=== PATIENT | female | born 1940 | race Caucasian/White ===

== ENCOUNTER 2023-12-02 20:50 | Inpatient (IN) | payer MEDICARE, OTHER, SELFPAY ==
[2023-12-02] VITALS (9 sets, daily range): BP systolic 93–183; BP diastolic 40–73; BMI 26.6
--- NOTE | 2023-12-02 13:50 | EDRN ---
Delay in lab labels due to registration needing correction.
[2023-12-02 13:58] LABS: % Basophils 0.7 % (0-2); % Eosinophils 1.1 % (0-6); % Immature Granulocytes 0.5 % (0-0.5); % Lymphocytes 10.8 % (20.5-51.1); % Neutrophils 80.9 % (42.2-75.2); Absolute Basophils 0.1 10^3/uL (0-0.2); Absolute Eosinophils 0.1 10^3/uL (0-0.7); Absolute Immature Granulocytes 0.1 10^3/uL (0-0.05); Absolute Lymphocytes 1.4 10^3/uL (1.2-3.4); Absolute Monocytes 0.8 10^3/uL (0.1-0.6); Absolute Neutrophils 10.2 10^3/uL (1.4-6.5); Hematocrit 32.4 % (37.0-47.0); Hemoglobin 10.6 g/dL (12.0-16.0); Mean Corp Hgb Conc. 32.7 g/dL (33.0-37.0); Mean Corpuscular Hgb 27.4 pg (27.0-31.0); Mean Corpuscular Volume 83.7 fL (81.0-99.0); Mean Platelet Volume 9.8 fL (7.4-10.4); Nucleated Red Blood Cells % 0 %; Platelet Count 416 10^3/uL (130-400); Red Blood Cell Count 3.87 10^6/uL (4.20-5.40); Red Cell Dist. Width 13.7 % (11.5-14.5); White Blood Cell Count 12.5 10^3/uL (4.8-10.8)
[2023-12-02 14:12] LABS: ALT (SGPT) 10 U/L (0-35); AST (SGOT) 17 U/L (14-36); Albumin 3.8 g/dl (3.5-5.0); Alkaline Phosphatase 113 U/L (38-126); Blood Urea Nitrogen 19 mg/dl (7-17); Calcium 9.5 mg/dl (8.4-10.2); Carbon Dioxide 32 mmol/L (22-30); Chloride 99 mmol/L (98-107); Glucose 150 mg/dl (70-99); Potassium 3.5 mmol/L (3.5-5.1); Sodium 135 mmol/L (135-145); Total Bilirubin 0.4 mg/dl (0.2-1.3); Total Protein 6.6 g/dl (6.3-8.2); eGFR 40.55
[2023-12-02 14:52] LABS: Troponin I < 0.012 ng/ml
[2023-12-02] MEDS: ROXICODONE 5 MG PO (16:26)
[2023-12-02 17:37] LABS: Urine Albumin Negative (Neg - Trace); Urine Bilirubin Negative (Negative); Urine Character Clear (Clear); Urine Color Yellow; Urine Glucose Negative (Negative); Urine Ketone Negative (Negative); Urine Leukocyte Negative (Negative); Urine Nitrite Positive (Negative); Urine Occult Blood Negative (Negative); Urine Specific Gravity 1.015 (<1.030); Urine Urobilinogen Negative (Neg - 1+)
[2023-12-02 17:45] LABS: Urine Squamous Cell 0-2 /LPF (Few)
[2023-12-02 17:46] LABS: Urine Bacteria Many (Negative); Urine Red Blood Cell 0-2 /HPF (0-2)
--- NOTE | 2023-12-02 19:18 | ED.GENMED ---
History of Present Illness
General
Chief Complaint: Back Pain
Source: patient
Exam Limitations: none
Time Seen by Provider: 12/02/23 14:52
Nursing documentation reviewed up to this point in time: agreed with
Travel History
Have you had any contact with someone who has COVID-19?: No
Do you have any symptoms of coronavirus? Fever > 100 degrees, chills, cough, shortness of breath, sore throat, loss of taste or smell, muscle aches, or headache?: No
History of Present Illness
History of Present Illness:
83-year-old female with a past medical history of dementia, chronic respiratory failure on home oxygen, and chronic low back pain who presents to the emergency room accompanied by her family; she presents from home via EMS for evaluation of back
pain also had an episode of sweatiness and nausea prior to arrival. Patient is a poor historian much of history obtained from family who are at bedside. Patient has a long history of back pain and has had multiple compression fractures in the
past. Family reports that this past she started complaining of worsening pain in her lower back. They brought this to the attention of a visiting nurse and discussed with patient's primary doctor and ultimately she was prescribed tramadol
which she started on Saturday. It sounds like patient has been taking this in addition to Tylenol extra strength and neither of these things seem to be helping with her pain. Today patient was doing physical therapy and she says that she was having
severe pain in her back while she was up and walking around. It sounds like she became slightly clammy and sweaty and had some nausea. Did not feel lightheaded or pass out. It sounds like they had some trouble checking her vital signs during the
episode. This passed after a few minutes. She ultimately was referred to the emergency room after this episode in the setting of worsening back pain. Patient denies any lightheadedness, dizziness, diaphoresis or nausea here in the emergency room
her only complaint is continued low back pain. She says the pain radiates across the low back is not worse on one side or the other. She denies weakness or numbness in her legs. She denies saddle anesthesia. She denies any issues with
incontinence of her stools in fact she has been constipated recently. Family says that she has chronic urinary incontinence and that this is unchanged. No fevers or chills recently. No falls.
Past History
Past History
ED Past Medical History: Arrthythmia (afib), CHF, COPD (Wears oxygen at 2.5 liters), CVA (Left sided weakness), HTN, Hypercholesterolemia, Psychiatric and Other (Gout, Alzheimer dementia)
ED Past Surgical History: Cardiac (Stents), Tonsilectomy and Other (cataracts)
Patient has exhibited threatening behavior?: No
PSI?: No
Social History
Tobacco: Former smoker (Quit smoking 12 years ago)
Alcohol: None
Drug: None
Personal:
Living: assisted
Employment: Retired
Family History
Family History: Other (Noncontributory)
Review of Systems
Review of Systems
Unable to obtain full review of systems at this time due to: dementia
All Other Systems: Not applicable
Phy Exam
Physical Exam
Physical Exam:
General: Awake, alert; weak and physically deconditioned
Head: Normocephalic, atraumatic
Eyes: Conjunctiva normal, pupils equal round and reactive to light bilaterally
Throat: Airway intact, handling secretions
Neck: Trachea midline, supple without meningismus
Lungs: Clear to auscultation bilaterally, no wheezing, rales, rhonchi
Heart: Regular rate and rhythm, no murmurs, gallops, or rubs
Abd: Soft, non distended, nontender with no palpable masses
Back: No tenderness in the thoracic or lumbar midline spine but she does have bilateral paraspinal tenderness L4-L5 level; no ecchymosis in the back or flank
Neuro: Cranial nerves grossly intact, speech fluid, motor and sensory function intact in the lower extremities
Extremities: Bilateral lower extremity edema; distal extremities are warm and well-perfused
Scores
Heart Failure Risk
Heart Failure Risk Score: Not Applicable
Heart Score for Chest Pain Patients
STEMI patient?: Not applicable
Withdrawal Assessment of Alcohol
Withdrawal Assessment Completed?: Not applicable
Course
Orders/Labs/Results
Orders:
Orders
12/02/23 13:10
ECG [Electrocardiogram (*1)] Urgent
Reason for Study: Chest Pain
12/02/23 13:11
EKG- Treatment ONCE
12/02/23 13:50
Complete Blood Count/With Diff Urgent
Comprehensive Metabolic Panel Urgent
Troponin I Urgent
12/02/23 15:55
CT Abd/pelvis Wo Iv Cont Urgent
Reason For Exam: severe low back pain on eliquis--eval for RP bleed
Oxycodone [Roxicodone] 5 mg PO NOW STA
12/02/23 17:23
Urinalysis Reflex To Culture Urgent
Date Specimen was Collected: 12/02/23
Time Specimen was Collected: 17:22
Urine Microscopic Reflex Cult Urgent
Urine Culture Urgent
DOC Source: U
Specimen Description:
Date Specimen was Collected: 12/02/23
Time Specimen was Collected: 17:22
12/02/23 19:53
Case Management Consult ONCE
Case Management Consult: Discharge Planning
Morphine Sulfate 2 mg IV NOW STA
PT Consult [Pt Eval And Treat] Urgent
Activity Level: Ambulate
12/02/23 20:29
Admit/Transfer Patient As Directed
Co-Sign Provider:
Level of Care: Inpatient admission
Assign to:: Medical/Surgical
Physician / Group: deven
Diagnosis: lower back pain
Reason for Hospitalization: lower back pain
Expected length of stay greater than two midnights?: Yes
ELOS- Estimated Length of Stay in days: 2
I certify the patient meets the requirements for IP care: Yes
Code Status As Directed
Resuscitation Status: Do not resuscitate
Reached after discussion with pt or family/Healthcare POA: Yes
12/02/23 20:30
DNR Bracelet Application ONCE
12/02/23 20:35
CR Chest Portable - 1 View Urgent
Comment:
Reason For Exam: hypoxia
Reason Study Needs to be Portable: Unable to Transport
Abnormal Lab Results
12/02/23 12/02/23
13:50 17:23
WBC 12.5 H 10^3/uL
(4.8-10.8)
RBC 3.87 L 10^6/uL
(4.20-5.40)
Hgb 10.6 L g/dL
(12.0-16.0)
Hct 32.4 L %
(37.0-47.0)
MCHC 32.7 L g/dL
(33.0-37.0)
Plt Count 416 H 10^3/uL
(130-400)
Abs Immat Gran (auto) 0.1 H 10^3/uL
(0-0.05)
Absolute Neuts (auto) 10.2 H 10^3/uL
(1.4-6.5)
Absolute Monos (auto) 0.8 H 10^3/uL
(0.1-0.6)
Neutrophils % 80.9 H %
(42.2-75.2)
Lymphocytes % 10.8 L %
(20.5-51.1)
Carbon Dioxide 32 H mmol/L
(22-30)
BUN 19 H mg/dl
(7-17)
Creatinine 1.3 H mg/dL
(0.6-1.0)
Glucose 150 H mg/dl
(70-99)
Urine Nitrite (Reflex) Positive A
(Negative)
Urine Bacteria (Reflex) Many A
(Negative)
12/02/23 13:50
12/02/23 13:50
Vital Signs
Initial and Last Documented VS:
Initial Vital Signs
Temp Pulse Resp BP Pulse Ox
36.6 C 62 16 93/63 94
12/02/23 13:13 12/02/23 13:13 12/02/23 13:13 12/02/23 13:13 12/02/23 13:13
Last Documented Vital Signs
Temp Pulse Resp BP Pulse Ox
36.6 C 64 16 170/46 93
12/02/23 13:13 12/02/23 18:00 12/02/23 18:00 12/02/23 17:20 12/02/23 17:20
MDM/Problems Addressed
Differential Diagnosis Includes:
Compression fracture, myofascial strain, back spasms, retroperitoneal hemorrhage, intra-abdominal infection, kidney stone or pyelonephritis felt to be somewhat less likely
MDM/Problems Addressed:
83-year-old female presents for evaluation of acute on chronic low back pain; she also had an episode of clamminess and nausea in the setting of severe pain while doing physical therapy today. Suspect this episode of clamminess and nausea was
likely a vagal episode in the setting of increased back pain with movement. She has had no falls that have triggered her increase in back pain and she has been receiving tramadol for the past few days which has not helped really at all she says.
Plan to place an IV check labs including a CBC and a CMP. Will check urinalysis. Will send for CT of the abdomen pelvis. Given the episode of clamminess will check an EKG. Will reassess after the above.
Labs reviewed: CBC shows slight leukocytosis to 12.5; hemoglobin 10.6 which is stable. Creatinine baseline 1.3. She has troponin sent in triage which was negative�denies chest pain at any point time. Her urinalysis did have positive nitrites and
many bacteria but there is no pyuria and or squamous cells that suggest more likely this is a contaminated sample. In the absence of urinary symptoms and with bilateral symptoms in the low back that seem quite clearly worse with movement very low
suspicion that symptoms are related to urinary tract infection will hold on antibiotics for now. On CT she has no evidence of retroperitoneal hemorrhage. She has chronic appearing compression deformities in the thoracic and lumbar spine but
nothing that appears to be convincingly acute. No evidence of AAA. At this point suspect her symptoms are musculoskeletal. She was treated with oxycodone here and showed no improvement whatsoever. She is on Eliquis and so NSAIDs contraindicated.
Would be hesitant to discharge on high-dose opiates given her age and fall risk and at this point she can barely move due to her significant back pain despite being dosed with oxycodone. She lives at home with daughters as her only means of
support and daughters feel very uncomfortable with her current functional status given her back pain. Will consult PT and case management I suspect she likely would benefit for short-term rehab with her acute on chronic pain; will admit for
continued pain management and ultimately safe placement. Discussed with hospitalist for admission.
Chronic conditions affecting care:
Chronic back pain
*Radiology
Radiology exam reviewed: radiology read reviewed
*Pulse Oximetry
Patient hypoxic: no
*EKG
Interpreted by ED Provider?: Yes
Heart Rate: 63
Rate: normal
Rhythm: sinus
[place]: normal axis
Interval: normal interval
QRS Pattern: normal QRS
Ischemia: non-specific ST changes
*Critical Care Note
Total Time (30-74mins, 75-104mins- exclusive of procedures): Not Applicable
Data Reviewed
Review of Other/Old Records Reveals: Labs and Records
Source: patient, records and family
Patient Management
Discussion with other providers: Hospitalist (Discussed with hospitalist)
Escalation/DeEscalation of care consider admission/obs:
Admission indicated
ED Attending Note
-
Portions of this chart may have been created with voice recognition software.� Occasional wrong word or��sound alike� substitutions may have occurred due to the inherent limitations of voice recognition software.
Discharge Plan
Departure
Patient Disposition: Admit
Date of Disposition: 12/02/23
Time of Disposition: 19:57
Admit to doctor: [facility]
Presentation/result/management discussed w/ accepting MD/DO: Hospitalist
Discharge Problem:
Acute exacerbation of chronic low back pain
Prescriptions:
No Action
sertraline 50 MG tablet
50 mg PO QPM
memantine 10 MG tablet
10 mg PO BID
donepezil 10 mg Tablet
10 mg PO DAILY
montelukast [Singulair] 10 mg Tablet
10 mg PO DAILY
cholecalciferol (vitamin D3) [Vitamin D3] 25 mcg (1,000 unit) Tablet
25 mcg PO DAILY
diltiazem HCl 240 MG capsule,extended release 24hr
240 mg PO QPM
furosemide 40 mg Tablet
40 mg PO DAILY
docusate sodium [Colace] 100 mg Capsule
100 mg PO DAILY
budesonide-formoterol [Symbicort] 160-4.5 mcg/actuation Hfa Aerosol Inhaler
2 puff INHALATION R DAILY
atorvastatin 40 MG tablet
40 mg PO QPM
pantoprazole 40 MG tablet,delayed release (DR/EC)
40 mg PO DAILY
tramadol 50 mg tablet
50 mg PO TID PRN (Reason: moderate pain)
Patient Comments:
12/02/2023: last filled 11/28/23, 30 tabs for 10 days from [facility]
tiotropium bromide [Spiriva with HandiHaler] 18 mcg capsule, w/inhalation device
1 cap INHALATION R DAILY
Eliquis 5 mg tablet
5 mg PO BID
alprazolam 0.5 mg tablet
0.5 mg PO TID
Patient Comments:
12/02/2023: last filled 11/07/23, 120 tabs for 30 days from [facility]
Referrals:
Tato Chung DO [Family Provider] -
[2023-12-02] MEDS: MORPHINE SULFATE 2 MG IV (20:14)
--- NOTE | 2023-12-02 20:33 | HPS.HSE ---
Family Physician
-
Family Physician: Tato Chung
Chief Complaint
-
lower back pain
History of Present Illness
83-year-old female with past medical history paroxysmal atrial fibrillation on Eliquis, CAD with stent, chronic HFpEF, COPD on 2.5 L at baseline, C. difficile antigen positive, CVA, subclavian steal syndrome with 30 to 40% blockage on the right
side, essential hypertension, hyperlipidemia, GERD, CKD 3B, Alzheimer's disease, Mcnulty's palsy, anxiety/depression, hypoalbuminemia, ex-smoker, hemorrhoids, arthritis/ambulatory dysfunction, compression fractures, presenting with back pain as well as
an episode of sweatiness/clamminess and nausea prior to arrival. Patient has a history of chronic back pain has had multiple compression fractures in the past. A few days ago she started complaining of worsening pain in her lower back during
ambulation and when she bends forward. No radiation of pain down the legs or to the hip. She was prescribed tramadol which she started the next day. Tylenol and tramadol did not help with pain. Today patient was undergoing physical therapy and
started having severe pain in her back while she was ambulating. No recent falls.
While she was sitting she had an episode of nausea and clamminess and sweating which shortly resolved afterwards. No chest pain. She also had hypoxia down to 85% while on her baseline 2.5 L. She did have some slightly increased cough today but
denies any fever or productive sputum.
Patient does not smoke or drink alcohol.
Medical History
Past Medical History
Past Medical History: Reports Other ( paroxysmal atrial fibrillation on Eliquis, CAD with stent, chronic HFpEF, COPD on 2.5 L at baseline, C. difficile antigen positive, CVA, subclavian steal syndrome with 30 to 40% blockage on the right side,
essential hypertension, hyperlipidemia, GERD, CKD 3B, Alzheimer's disease, Mcnulty's palsy, anxi)
Past Surgical History: Reports Other (Cardiac (Stents), Tonsilectomy and Other (cataracts))
Social History
Tobacco: Non-smoker
Alcohol: None
Drug: None
Family History
Family History: Not pertinent
Allergies / Home Medications
Allergies reflects when Allergies were last updated in [facility].
Home Medications with original date entered in [facility]
Allergy/Medication List:
Allergies
Allergy/AdvReac Type Severity Reaction Status Date / Time
codeine Allergy Itching Verified 12/02/23 13:44
Iodinated Contrast Media Allergy Unknown Verified 12/02/23 13:44
iodine Allergy Unknown Verified 12/02/23 13:44
methylprednisolone Allergy Rash Verified 12/02/23 13:44
Penicillins Allergy Hives Verified 12/02/23 13:44
prednisone Allergy Unknown Verified 12/02/23 13:44
shellfish derived Allergy Swelling Verified 12/02/23 13:44
Home Medications
memantine 10 mg tablet 10 mg PO BID Neurological Condition 12/13/21
sertraline 50 mg tablet 50 mg PO QPM Depression 12/13/21
donepezil 10 mg tablet 10 mg PO DAILY memory 05/26/22
cholecalciferol (vitamin D3) 25 mcg (1,000 unit) tablet (Vitamin D3) 25 mcg PO DAILY Supplement 10/14/22
montelukast 10 mg tablet (Singulair) 10 mg PO DAILY asthma 10/14/22
diltiazem HCl 240 mg capsule,extended release 24 hr 240 mg PO QPM Arrhythmia 06/20/23
atorvastatin 40 mg tablet 40 mg PO QPM High Cholesterol 09/10/23
budesonide-formoterol HFA 160 mcg-4.5 mcg/actuation aerosol inhaler (Symbicort) 2 puff inhalation R DAILY Lung/Breathing Issues 09/10/23
docusate sodium 100 mg capsule (Colace) 100 mg PO DAILY Gastrointestinal Issue 09/10/23
furosemide 40 mg tablet 40 mg PO DAILY Fluid Retention/Swelling 09/10/23
pantoprazole 40 mg tablet,delayed release 40 mg PO DAILY Gastrointestinal Issue 09/10/23
alprazolam 0.5 mg tablet 0.5 mg PO TID anxiety 12/02/23
apixaban 5 mg tablet (Eliquis) 5 mg PO BID 12/02/23
tiotropium bromide 18 mcg capsule with inhalation device (Spiriva with HandiHaler) 1 cap inhalation R DAILY 12/02/23
tramadol 50 mg tablet 50 mg PO TID PRN moderate pain 12/02/23
Review of Systems
-
History Source: Patient
A 12 point ROS was completed and negative except as noted: Yes
Constitutional: Reports No Symptoms
EENT: Reports No Symptoms
Respiratory: Reports No Symptoms
Cardiac: Reports No Symptoms
Abdomen/GI: Reports No Symptoms
: Reports No Symptoms
Musculoskeletal: Reports See HPI
Skin: Reports No Symptoms
Neurological: Reports No Symptoms
Endocrine: Reports No Symptoms
Hematologic/Lymphatic: Reports No Symptoms
Psych: Reports No Symptoms
Physical Exam
Vital Signs
Vital Signs
Temp Pulse Resp BP Pulse Ox
97.9 F 64 16 170/46 93
12/02/23 13:13 12/02/23 18:00 12/02/23 18:00 12/02/23 17:20 12/02/23 17:20
Physical Exam
General: Well Developed, Well Nourished and No Apparent Distress
HEENT: NormoCephalic, Moist mucous membranes and Atraumatic
Respiratory: Clear
Cardiac: S1/S2 and Regular Rhythm; No Murmur or Rub
GI: Soft, Non Tender, Non Distended and Normal Bowel Sounds; No Organomegaly
Rectal: Deferred by Provider
Musculoskeletal: No Clubbing, No Cyanosis and No Edema
Skin: No Rash
Neuro: Nonfocal/grossly intact
Laboratory Results
-
12/02/23 13:50
12/02/23 13:50
Laboratory Results
Total Bilirubin 0.4 mg/dl (0.2-1.3) 12/02/23 13:50
AST 17 U/L (14-36) 12/02/23 13:50
ALT 10 U/L (0-35) 12/02/23 13:50
Alkaline Phosphatase 113 U/L (38-126) 12/02/23 13:50
Troponin I < 0.012 ng/ml 12/02/23 13:50
Data Reviewed
-
Lab Data: Labs Reviewed by me
Old Records: Reviewed
Impression/Plan
-
IMPRESSION:
PLAN:
# Acute on chronic lower back pain
# History of compression fracture of T12/L2/L3
# History of degenerative lumbar disc disease with bulges/neuroforaminal stenosis at L4-L5 with impingement of left L4 nerve root
-Tender to palpation of center lumbar spine, able to lift legs against resistance
-CT abdomen pelvis shows compression deformities of the lower thoracic and lumbar spine suggesting old fractures without evidence of acute fracture
-Continue Tylenol, lidocaine patch, tramadol
-As needed morphine
-PT/OT
# Vasovagal episode secondary to pain
-Has resolved
-troponin negative
-EKG normal sinus
# Transient hypoxia likely secondary to pain
-Lungs sound clear
-No longer hypoxic
-Check CXR
Paroxysmal atrial fibrillation
-Continue Eliquis
-Continue diltiazem
CAD with stent
Chronic HFpEF
-Continue Lasix
Chronic anemia due to chronic disease
-Hemoglobin at baseline
History of CVA
Subclavian steal syndrome with 30 to 40% blockage on the right
COPD on 2.5 L at baseline
-Continue inhalers
-Continue montelukast
History of CAD
Essential hypertension
GERD
-Continue Protonix
Hyperlipidemia
-Continue statin
CKD 3B
-Renal function at baseline
Alzheimer's disease
-Continue donepezil, memantine
History of Mcnulty's palsy
Anxiety/depression
-Continue Xanax, sertraline
Hypoalbuminemia
Ex-smoker
History of hemorrhoids
DNR/DNI
DVT prophylaxis�Eliquis
Regular diet
[2023-12-02] MEDS: ULTRAM 50 MG PO (22:19)
[2023-12-02] MEDS: XANAX 0.5 MG PO (22:19)
[2023-12-03] MEDS: MORPHINE SULFATE 2 MG IV (00:08)
--- NOTE | 2023-12-03 00:47 | PTCARENOTE ---
Patient received in bed from ED AAOx1. Pt pulled over from stretcher to bed. Patient complaining of lower back pain, PRN medications given see MAR. Bed low, call horta placed within reach.
[2023-12-03 03:25] VITALS: BP 156/73
[2023-12-03 07:25] VITALS: BP 161/57
[2023-12-03 07:36] LABS: % Eosinophils 3.7 % (0-6); % Immature Granulocytes 0.5 % (0-0.5); % Lymphocytes 30.4 % (20.5-51.1); % Monocytes 9.8 % (1.7-9.3); % Neutrophils 54.6 % (42.2-75.2); Absolute Basophils 0.1 10^3/uL (0-0.2); Absolute Eosinophils 0.3 10^3/uL (0-0.7); Absolute Lymphocytes 2.2 10^3/uL (1.2-3.4); Absolute Monocytes 0.7 10^3/uL (0.1-0.6); Hematocrit 29.9 % (37.0-47.0); Hemoglobin 9.8 g/dL (12.0-16.0); Mean Corp Hgb Conc. 32.8 g/dL (33.0-37.0); Mean Corpuscular Hgb 27.2 pg (27.0-31.0); Mean Corpuscular Volume 83.1 fL (81.0-99.0); Mean Platelet Volume 9.6 fL (7.4-10.4); Nucleated Red Blood Cells % 0 %; Platelet Count 374 10^3/uL (130-400); Red Cell Dist. Width 13.5 % (11.5-14.5); White Blood Cell Count 7.3 10^3/uL (4.8-10.8)
[2023-12-03 08:02] LABS: ALT (SGPT) < 10 U/L (0-35); AST (SGOT) 17 U/L (14-36); Albumin 3.3 g/dl (3.5-5.0); Alkaline Phosphatase 101 U/L (38-126); Blood Urea Nitrogen 15 mg/dl (7-17); Calcium 9.3 mg/dl (8.4-10.2); Carbon Dioxide 33 mmol/L (22-30); Chloride 100 mmol/L (98-107); Estimated Creatinine Clearance 36 ml/min; Glucose 83 mg/dl (70-99); Potassium 3.4 mmol/L (3.5-5.1); Sodium 135 mmol/L (135-145); Total Bilirubin 0.4 mg/dl (0.2-1.3); Total Protein 5.9 g/dl (6.3-8.2); eGFR 55.55
[2023-12-03] MEDS: SPIRIVA RESPIMAT 2.5 MCG 2 PUFF INH (08:18)
[2023-12-03] MEDS: SYMBICORT 160/4.5 MCG INHALER 2 PUFF INH (08:18)
[2023-12-03] MEDS: KCL 40 MEQ PO (09:30)
[2023-12-03] MEDS: NAMENDA 5 MG PO ×2 (09:30→21:16)
[2023-12-03] MEDS: PROTONIX 40 MG PO (09:30)
[2023-12-03] MEDS: ELIQUIS 5 MG PO ×2 (09:30→21:16)
[2023-12-03] MEDS: LASIX 40 MG PO (09:30)
[2023-12-03] MEDS: COLACE 100 MG PO (09:31)
[2023-12-03] MEDS: LIDOCAINE 4% PATCH 1 PATCH TOPICAL (09:31)
[2023-12-03] MEDS: SINGULAIR 10 MG PO (09:31)
[2023-12-03] MEDS: VITAMIN D3 (cholecalciferol) 25 MCG PO (09:31)
[2023-12-03] MEDS: XANAX 0.5 MG PO ×3 (09:31→21:18)
[2023-12-03] MEDS: ARICEPT 10 MG PO (09:35)
[2023-12-03 09:41] VITALS: BMI 28.1
[2023-12-03 12:28] VITALS: BP 93/57; PULSE 66; O2SAT 100
[2023-12-03 12:34] VITALS: BP 93/57; PULSE 67; O2SAT 100
[2023-12-03 15:55] VITALS: BP 142/92
--- NOTE | 2023-12-03 16:16 | CM ---
manager diabetes reviewed patient's chart and spoke with patient's daughter Jessica by phone, and patient lives in a 2 story home, with a 1st floor set up, patient is independent with adl's and uses a walker, cane, w/c home oxygen, and has a stair glide,
per physician notes recommendation is for skilled placement, options reviewed with patient's daughter Jessica and she is only agreeable to [facility].
Plan; Skilled placement, daughter only selects [facility].
--- NOTE | 2023-12-03 16:53 | W.PN.HOSP.TC ---
Today's Communication/Plan
-
Bowel regimen
Will consult neurosurgery/orthopedics spine
Continue monitoring for any symptoms or signs of pneumonia
Assessment / Plan
Assessment / Plan
Physical Exam
General: Well Developed, Well Nourished and No Apparent Distress
HEENT: Normocephalic, Moist mucous membranes and Atraumatic
Respiratory: Clear
Cardiac: S1/S2 and Regular Rhythm; No Murmur or Rub
GI: Soft, Non Tender, Non Distended and Normal Bowel Sounds; No Organomegaly
Rectal: Deferred by Provider
Musculoskeletal: No Clubbing, No Cyanosis and No Edema
Skin: No Rash
Neuro: Nonfocal/grossly intact
Assessment/Plan
# Acute on chronic lower back pain
# History of compression fracture of T12/L2/L3
# History of degenerative lumbar disc disease with bulges/neuroforaminal stenosis at L4-L5 with impingement of left L4 nerve root
-Tender to palpation of center lumbar spine, able to lift legs against resistance
-CT abdomen pelvis shows compression deformities of the lower thoracic and lumbar spine suggesting old fractures without evidence of acute fracture
-Continue Tylenol, lidocaine patch, tramadol
-As needed morphine
-PT/OT
# Vasovagal episode secondary to pain
-Has resolved
-troponin negative
-EKG normal sinus
# Transient hypoxia likely secondary to pain vs. atelectasis vs. less likely pneumonia
-Lungs sound clear
-No longer hypoxic
Paroxysmal atrial fibrillation
-Continue Eliquis
-Continue diltiazem
CAD with stent
Chronic HFpEF
-Continue Lasix
Chronic anemia due to chronic disease
-Hemoglobin at baseline
History of CVA
Subclavian steal syndrome with 30 to 40% blockage on the right
COPD on 2.5 L at baseline
-Continue inhalers
-Continue montelukast
History of CAD
Essential hypertension
GERD
-Continue Protonix
Hyperlipidemia
-Continue statin
CKD 3B
-Renal function at baseline
Alzheimer's disease
-Continue donepezil, memantine
History of Mcnulty's palsy
Anxiety/depression
-Continue Xanax, sertraline
Hypoalbuminemia
Ex-smoker
History of hemorrhoids
Moderate diffuse coarsening of the interstitial markings throughout both lungs which could be interstitial pneumonia/bronchiolitis on CT Imaging
Trace amount of pleural fluid within the visualized inferior hemithoraces posteriorly on CT Imaging.
Parenchymal opacity at the posterior lower lobes of the lungs, left greater than right, on CT imaging likely atelectasis but less likely pneumonia
Peripherally calcified gallstone on CT imaging
Moderate to severe vascular calcification in aorta on CT Imaging
Enlarged and lobulated uterus, compatible with fibroid on CT Imaging
Moderate distention of the rectum with stool on CT Imaging
Compression deformities of the lower thoracic and lumbar spine on CT Imaging suggesting old compression fractures
DNR/DNI
DVT prophylaxis�Eliquis
Regular diet
Anticipated Discharge: > 48 hours
Subjective/Interval History
-
Date of Service: December 03, 2023
Patient was seen and examined. She still has back pain. She denied numbness, tingling or any other issues or complaints.
Objective Data
-
Labs:
Laboratory Results
12/03/23
07:12
WBC 7.3
Hgb 9.8 L
Hct 29.9 L
Plt Count 374
Sodium 135
Potassium 3.4 L
Chloride 100
Carbon Dioxide 33 H
BUN 15
Creatinine 1.0
Glucose 83
Calcium 9.3
Total Bilirubin 0.4
AST 17
ALT < 10
Alkaline Phosphatase 101
Vital Signs:
Vital Signs
Temp Pulse Resp BP Pulse Ox
99.2 F 60 16 142/92 95
12/03/23 15:55 12/03/23 15:55 12/03/23 15:55 12/03/23 15:55 12/03/23 15:55
[2023-12-03] MEDS: MIRALAX 17 GRAMS PO (17:45)
[2023-12-03] MEDS: CARDIZEM CD 240 MG PO (17:45)
[2023-12-03] MEDS: LIPITOR 40 MG PO (17:45)
[2023-12-03] MEDS: ZOLOFT 50 MG PO (17:45)
[2023-12-03] MEDS: SENOKOT 8.59999999999999964 MG PO (21:18)
[2023-12-03 23:00] VITALS: BP 140/45
--- NOTE | 2023-12-04 03:44 | DOWNTIME ---
There was a [employer] Client Mental Retardation Nurse Downtime on 12/04/2023 from 0100 to 12/04/2023 at 0322. Downtime documentation of patient's care, including medication administrations, has been reconciled in the electronic record per guidelines. Refer to the
patient's paper chart under the miscellaneous tab to see printed paper medication records and downtime forms.
[2023-12-04 06:00] VITALS: BMI 27.6
[2023-12-04 07:53] LABS: % Basophils 0.7 % (0-2); % Immature Granulocytes 0.3 % (0-0.5); % Lymphocytes 18.7 % (20.5-51.1); % Monocytes 9.2 % (1.7-9.3); % Neutrophils 68.1 % (42.2-75.2); Absolute Basophils 0.1 10^3/uL (0-0.2); Absolute Eosinophils 0.3 10^3/uL (0-0.7); Absolute Lymphocytes 1.8 10^3/uL (1.2-3.4); Absolute Monocytes 0.9 10^3/uL (0.1-0.6); Absolute Neutrophils 6.4 10^3/uL (1.4-6.5); Hematocrit 28.7 % (37.0-47.0); Hemoglobin 9.4 g/dL (12.0-16.0); Mean Corp Hgb Conc. 32.8 g/dL (33.0-37.0); Mean Corpuscular Hgb 27.2 pg (27.0-31.0); Mean Corpuscular Volume 82.9 fL (81.0-99.0); Mean Platelet Volume 9.7 fL (7.4-10.4); Nucleated Red Blood Cells % 0 %; Platelet Count 382 10^3/uL (130-400); Red Blood Cell Count 3.46 10^6/uL (4.20-5.40); Red Cell Dist. Width 13.7 % (11.5-14.5); White Blood Cell Count 9.4 10^3/uL (4.8-10.8)
[2023-12-04 07:55] VITALS: BP 125/43
--- NOTE | 2023-12-04 08:10 | W.PN.HOSP.TC ---
Today's Communication/Plan
-
MRI spine
Continue Eliquis
Monitor Hgb
Assessment / Plan
Assessment / Plan
Physical Exam
General: Well Developed, Well Nourished and No Apparent Distress
HEENT: Normocephalic, Moist mucous membranes and Atraumatic
Respiratory: Clear
Cardiac: S1/S2 and Regular Rhythm; No Murmur or Rub
GI: Soft, Non Tender, Non Distended and Normal Bowel Sounds; No Organomegaly
Rectal: Deferred by Provider
Musculoskeletal: No Clubbing, No Cyanosis and No Edema
Skin: No Rash
Neuro: Nonfocal/grossly intact
Assessment/Plan
# Acute on chronic lower back pain
# History of compression fracture of T12/L2/L3
# History of degenerative lumbar disc disease with bulges/neuroforaminal stenosis at L4-L5 with impingement of left L4 nerve root
-Tender to palpation of center lumbar spine, able to lift legs against resistance
-CT abdomen pelvis shows compression deformities of the lower thoracic and lumbar spine suggesting old fractures without evidence of acute fracture
-Continue Tylenol, lidocaine patch, tramadol
-As needed morphine
-PT/OT
-Neurosurgery consulted, recommendations appreciated
-CRP is elevated therefore ordered MRI L-Spine and T-spine with and without contrast
#Red, Heme-Positive Stool Found on December 04, 2023
-Consulted GI, recommendations appreciated
-Patient's daughter Jessica would prefer not to have patient have a colonoscopy
-Okay to continue Eliquis as per GI
# Vasovagal episode secondary to pain
-Has resolved
-troponin negative
-EKG normal sinus
# Transient hypoxia likely secondary to pain vs. atelectasis vs. less likely pneumonia
-Lungs sound clear
-No longer hypoxic
#Hypokalemia
Paroxysmal atrial fibrillation
-Continue Eliquis
-Continue diltiazem
CAD with stent
Chronic HFpEF
-Continue Lasix
Chronic anemia due to chronic disease
-Hemoglobin at baseline
History of CVA
Subclavian steal syndrome with 30 to 40% blockage on the right
COPD on 2.5 L at baseline
Chronic respiratory failure with hypoxia
-Continue inhalers
-Continue montelukast
History of CAD
Essential hypertension
GERD
-Continue Protonix
Hyperlipidemia
-Continue statin
CKD 3B
-Renal function at baseline
Alzheimer's disease
-Continue donepezil, memantine
History of Mcnulty's palsy
Anxiety/depression
-Continue Xanax, sertraline
Hypoalbuminemia
Ex-smoker
History of hemorrhoids
Moderate diffuse coarsening of the interstitial markings throughout both lungs which could be interstitial pneumonia/bronchiolitis on CT Imaging
Trace amount of pleural fluid within the visualized inferior hemithoraces posteriorly on CT Imaging.
Parenchymal opacity at the posterior lower lobes of the lungs, left greater than right, on CT imaging likely atelectasis but less likely pneumonia
Peripherally calcified gallstone on CT imaging
Moderate to severe vascular calcification in aorta on CT Imaging
Enlarged and lobulated uterus, compatible with fibroid on CT Imaging
Moderate distention of the rectum with stool on CT Imaging
Compression deformities of the lower thoracic and lumbar spine on CT Imaging suggesting old compression fractures
DNR/DNI
DVT prophylaxis�Eliquis
Regular diet
On December 04, 2023, I spoke extensively to the patient's daughter Jessica. All questions and concerns were answered to satisfaction.
Total time spent today on reviewing patient's chart, seeing and examining the patient, documentation, placing orders, speaking extensively with the patient's daughter, communicating with neurosurgeon and gastroenterology, was 75 minutes.
Anticipated Discharge: > 48 hours
Subjective/Interval History
-
Date of Service: December 04, 2023
Objective Data
-
Labs:
Laboratory Results
12/04/23
06:32
WBC 9.4
Hgb 9.4 L
Hct 28.7 L
Plt Count 382
Sodium Pending
Potassium Pending
Chloride Pending
Carbon Dioxide Pending
BUN Pending
Creatinine Pending
Glucose Pending
Calcium Pending
Vital Signs:
Vital Signs
Temp Pulse Resp BP Pulse Ox
98.3 F 66 16 140/45 95
12/03/23 23:00 12/03/23 23:00 12/03/23 23:00 12/03/23 23:00 12/03/23 23:00
I&O
12/03/23 12/04/23 12/05/23
06:59 06:59 06:59
Intake Total 1440 / 1440
Balance 1440 / 1440
[2023-12-04 08:19] LABS: Blood Urea Nitrogen 16 mg/dl (7-17); Carbon Dioxide 31 mmol/L (22-30); Chloride 99 mmol/L (98-107); Estimated Creatinine Clearance 32 ml/min; Glucose 95 mg/dl (70-99); Sodium 132 mmol/L (135-145); eGFR 49.55
[2023-12-04 08:46] LABS: Erythrocyte Sed Rate 50 mm/hour (0-20)
[2023-12-04] MEDS: SYMBICORT 160/4.5 MCG INHALER 2 PUFF INH (09:01)
[2023-12-04] MEDS: SPIRIVA RESPIMAT 2.5 MCG 2 PUFF INH (09:02)
[2023-12-04] MEDS: LIDOCAINE 4% PATCH 1 PATCH TOPICAL (10:15)
[2023-12-04] MEDS: MIRALAX 17 GRAMS PO ×2 (10:16→19:48)
[2023-12-04] MEDS: VITAMIN D3 (cholecalciferol) 25 MCG PO (10:16)
[2023-12-04] MEDS: ARICEPT 10 MG PO (10:16)
[2023-12-04] MEDS: SENOKOT 8.59999999999999964 MG PO (10:16)
[2023-12-04] MEDS: NAMENDA 5 MG PO ×2 (10:16→19:48)
[2023-12-04] MEDS: COLACE 100 MG PO (10:16)
[2023-12-04] MEDS: PROTONIX 40 MG PO (10:17)
[2023-12-04] MEDS: LASIX 40 MG PO (10:25)
[2023-12-04] MEDS: XANAX 0.5 MG PO ×3 (10:25→22:39)
[2023-12-04] MEDS: SINGULAIR 10 MG PO (10:26)
[2023-12-04] MEDS: ELIQUIS 5 MG PO ×2 (10:26→19:48)
[2023-12-04] MEDS: ULTRAM 50 MG PO (10:44)
[2023-12-04 11:23] LABS: COVID-19 Antigen Negative (Negative)
--- NOTE | 2023-12-04 12:03 | CM ---
Chart reviewed and case management associate spoke with patient's daughter Jessica who is only agreeable to [facility] for skilled placement, if patient cannot get a bed at [facility], family will take patient home per daughter, Jessica.
Plan; Skilled placement at [facility].
--- NOTE | 2023-12-04 12:06 | PN.CDI ---
CDI
- -
CDI:
Physician Documentation Request
Admit Date: 12/02/23 20:50
Dear Doctor Mery,
Please review the following and provide your response in the progress notes.
Clinical Indicators:
- 12/02 KCl 40meq PO given
Laboratory Tests
12/02/23 12/03/23 12/04/23
13:50 07:12 06:32
Potassium 3.5 3.4 L 4.0
Please provide a diagnosis for the above lab values that were monitored and treatment rendered:
Hypokalemia
Clinically insignificant abnormal lab value
Other
Use of terms such as suspected, likely, concern for, or probable (associated with a specific diagnosis that is being evaluated, monitored, or treated as if it exists) are acceptable and can be coded in the inpatient setting, when documented at the
time of discharge.
Thank you,
Brittany Pham RN
CDI Specialist
Please use your independent medical judgment in providing your response.
--- NOTE | 2023-12-04 12:08 | PN.CDI ---
CDI
- -
CDI:
Physician Documentation Request
Admit Date: 12/02/23 20:50
Dear Doctor Mery,
Please review the following and provide your response in the progress notes.
Clinical Indicators:
- 12/01 ER Physician 'past medical history of ...chronic respiratory failure on home oxygen'
- Documented VS 2-3L O2, pulse ox >93%
Laboratory Tests
12/02/23 12/03/23 12/04/23
13:50 07:12 06:32
Carbon Dioxide 32 H 33 H 31 H
Please clarify the type of respiratory failure:
Chronic respiratory failure with hypoxia
Chronic respiratory failure with hypercapnia
Chronic respiratory failure with hypoxia and hypercapnia
Other (please specify)
Use of terms such as suspected, likely, concern for, or probable (associated with a specific diagnosis that is being evaluated, monitored, or treated as if it exists) are acceptable and can be coded in the inpatient setting, when documented at the
time of discharge.
Thank you,
Brittany Pham RN
CDI Specialist
Please use your independent medical judgment in providing your response.
--- NOTE | 2023-12-04 13:42 | CON.GI ---
Addendum entered and electronically signed by Roland Vann MD 12/04/23 20:27:
I saw and examined the patient.
The PA's note was reviewed and I agree with the note.
Comment:
The pt is a 83 year old female with h/o afib on Eliquis, GI bleed post colonoscopy with noted polyps, gastric angioectasia 05/2022, ENRICO, COPD, CVA, CAD with stent, suspected cognitive impairment who p/w compression fracture. She had rectal bleeding
with BM today. Her Hgb is at her baseline. Had colonoscopy on 05/2022 which showed perianal skin tags hemorrhoids, diverticulosis, and polyps.
Impression / Rec:
1. Rectal bleeding - CT showed significant stool burden in rectum. Hgb is at baseline. Colonoscopy was on 05/2022 which showed hemorrhoids, diverticulosis and polyps. Agree with likely hemorrhoidal bleeding/local source, pt was ordered enema
today and had large brown BM. Pt's daughter do not want repeat endo evaluation. Continue with bowel regimen and monitor Hgb. Will s/o, call with questions.
Original Note:
Consultation
-
Date/Time Consultation Requested: 12/04/23 1115
Date/Time Consultation Performed: 12/04/23 1345
Requesting Provider: Nicko Steve MD
Performing Provider: REMY Thomas, Roland Vann MD
Reason for Consultation: rectal bleeding
Medical History
Chief Complaint / HPI
Chief Complaint: rectal bleed
History of Present Illness:
Pt is an 83yo presents with hx afib on Eliquis, GI bleed post colonoscopy with noted polyps, gastric angioectasia 05/2022, ENRICO, COPD, CVA, CAD with stent, subclavian steal, HTN, gout, suspected cognitive impairment with compression fracture. She
was seen in 2022 with concern for possible aspiration with eating and esophageal retention but improved with diet and no further testing was needed. She now presents lower back pain and concern for compression fracture. She is noted today with
rectal bleeding with loose stool and some blood mixed with stools. Pt with some drop in hbg since admission with hbg 9-[address] on admission 12/01 no retroperitoneal hematoma with multiple findings but noted moderate distention of rectal
with stool and no finding of colitis.
Pt currently unsure about constipation but denies dysphagia, GERD, nausea, vomiting, abdominal pain, diarrhea, or bleeding.
Last EGD �05/2022 Tortuous esophagus, HH, non bleeding angioectasia in stomach with APC, clip placed. + covid after admission. Colonoscopy: �05/2022� walp � �perianal skin tags hemorrhoids, diverticulosis, polyps
Past Medical History
Past Medical History: Arrhythmias (afib on Eliquis ), CAD, COPD, CVA, HTN, Hypercholesterolemia and Other (subclavial steal, gout, compression fracture, covid positive, anemia with hx work up 2021 with polyps angioectasia with bleeding post
procedure, dysphagia )
Past Surgical History: Cardiac (stents)
Social History
Tobacco: Non-Smoker
Alcohol: None
Drug: None
Living: With Family
Employment: Retired
Family History
Family History: Other (no family hx colon Ca or polyps)
Allergies / Home Medications
Allergy/AdvReac Type Severity Reaction Status Date / Time
codeine Allergy Itching Verified 12/02/23 13:44
Iodinated Contrast Media Allergy Unknown Verified 12/02/23 13:44
iodine Allergy Unknown Verified 12/02/23 13:44
methylprednisolone Allergy Rash Verified 12/02/23 13:44
Penicillins Allergy Hives Verified 12/02/23 13:44
prednisone Allergy Unknown Verified 12/02/23 13:44
shellfish derived Allergy Swelling/an Verified 12/02/23 21:23
gioedema
�Medication �Instructions �Recorded
memantine 10 mg tablet 10 mg PO BID Neurological Condition 12/13/21
sertraline 50 mg tablet 50 mg PO QPM Depression 12/13/21
donepezil 10 mg tablet 10 mg PO DAILY memory 05/26/22
cholecalciferol (vitamin D3) 25 25 mcg PO DAILY Supplement 10/14/22
mcg (1,000 unit) tablet (Vitamin
D3)
montelukast 10 mg tablet 10 mg PO DAILY asthma 10/14/22
(Singulair)
diltiazem HCl 240 mg 240 mg PO QPM Arrhythmia 06/20/23
capsule,extended release 24 hr
atorvastatin 40 mg tablet 40 mg PO QPM High Cholesterol 09/10/23
budesonide-formoterol HFA 160 2 puff inhalation R DAILY 09/10/23
mcg-4.5 mcg/actuation aerosol Lung/Breathing Issues
inhaler (Symbicort)
docusate sodium 100 mg capsule 100 mg PO DAILY Gastrointestinal 09/10/23
(Colace) Issue
furosemide 40 mg tablet 40 mg PO DAILY Fluid 09/10/23
Retention/Swelling
pantoprazole 40 mg tablet,delayed 40 mg PO DAILY Gastrointestinal 09/10/23
release Issue
alprazolam 0.5 mg tablet 0.5 mg PO TID anxiety 12/02/23
apixaban 5 mg tablet (Eliquis) 5 mg PO BID Blood Clot 12/02/23
Prevention/Tx
tiotropium bromide 18 mcg capsule 1 cap inhalation R DAILY 12/02/23
with inhalation device (Spiriva Lung/Breathing Issues
with HandiHaler)
tramadol 50 mg tablet 50 mg PO TID PRN moderate pain 12/02/23
Review of Systems
-
History Source: Patient and Other (nursing staff)
Constitutional: Reports Fatigue
EENT: Reports No Symptoms
Respiratory: Reports No Symptoms
Abdomen/GI: Reports Diarrhea and Bloody Stools
Musculoskeletal: Reports Other (back pain )
Skin: Reports No Symptoms
Neurological: Reports Weakness
Endocrine: Reports No Symptoms
Hematologic/Lymphatic: Reports No Symptoms
Vital Signs
Temp Pulse Resp BP Pulse Ox
97.5 F 60 18 125/43 96
12/04/23 07:55 03/27/24 09:00 12/04/23 09:00 12/04/23 07:55 12/04/23 09:00
Physical Exam
Exam
General: Well Developed and Well Nourished
HEENT: Normocephalic, Anicteric and Moist Mucous Membranes
Respiratory: Clear
Cardiac: Regular Rhythm
GI: Soft, Non Distended and Tender (lower abdomen)
Rectal: Other (liquid brown with some red tinge and large soft stool volume in rectal vault )
Genito-urinary: No Costovertebral Tender
Musculoskeletal: No Clubbing and No Cyanosis
Skin: Warm and Dry
Neuro: Awake, Alert and Other (forgetful)
Psych: Calm
Results
WBC 9.4 10^3/uL (4.8-10.8) 12/04/23 06:32
Hgb 9.4 g/dL (12.0-16.0) L 12/04/23 06:32
Hct 28.7 % (37.0-47.0) L 12/04/23 06:32
MCV 82.9 fL (81.0-99.0) 12/04/23 06:32
Plt Count 382 10^3/uL (130-400) 12/04/23 06:32
Absolute Neuts (auto) 6.4 10^3/uL (1.4-6.5) 12/04/23 06:32
Sodium 132 mmol/L (135-145) L 12/04/23 06:32
Potassium 4.0 mmol/L (3.5-5.1) 12/04/23 06:32
Chloride 99 mmol/L (98-107) 12/04/23 06:32
Carbon Dioxide 31 mmol/L (22-30) H 12/04/23 06:32
BUN 16 mg/dl (7-17) 12/04/23 06:32
Creatinine 1.1 mg/dL (0.6-1.0) H 12/04/23 06:32
Calcium 9.0 mg/dl (8.4-10.2) 12/04/23 06:32
Total Bilirubin 0.4 mg/dl (0.2-1.3) 12/03/23 07:12
AST 17 U/L (14-36) 12/03/23 07:12
ALT < 10 U/L (0-35) 12/03/23 07:12
Alkaline Phosphatase 101 U/L (38-126) 12/03/23 07:12
Diagnostic Image Results:
12/02/23 CT A/p
IMPRESSION: There is no evidence for retroperitoneal hematoma. There is no evidence for rectus hematoma.
Trace amount of pleural fluid within the visualized inferior hemithoraces posteriorly. There is adjacent parenchymal opacity within the posterior lower lobes of the lungs, left greater than right. Morphologic appearance is most suggestive of
atelectasis, although pneumonia difficult to completely exclude.
Peripherally calcified gallstone is present. No CT findings to suggest acute cholecystitis.
Moderate to severe vascular calcification with no evidence for abdominal aortic aneurysm.
Enlarged and lobulated uterus, compatible with fibroid.
Moderate distention of the rectum with stool, with no findings to suggest stercoral colitis.
Compression deformities of the lower thoracic and lumbar spine, with morphologic appearance suggesting that these represent old fractures. There is no convincing CT evidence for an acute fracture of the visualized spine.
Prior GI Procedures:
Prior GI Procedures:
EGD: � �05/2022 �walp � � - Tortuous esophagus.
�� � � � � � � � � � � - Small hiatal hernia.
�� � � � � � � � � � � - A single non-bleeding angioectasia in the stomach.
�� � � � � � � � � � � Treated with argon plasma coagulation (APC). Clip was
�� � � � � � � � � � � placed. Clip zinc plate cutter: Vision 360 Degres (V3D).
�� � � � � � � � � � � - Normal examined duodenum.
�� � � � � � � � � � � - No specimens collected.
Colonoscopy: �05/2022� walp � � Etiology of iron deficiency anemia is more likely
�� � � � � � � � � � � angioectasias. The polpys removed would not cause
�� � � � � � � � � � � anemia.
�� � � � � � � � � � � - Perianal skin tags found on perianal exam.
�� � � � � � � � � � � - Non-bleeding external and internal hemorrhoids.
�� � � � � � � � � � � - Diverticulosis in the entire examined colon.
�� � � � � � � � � � � - One 15 mm polyp in the distal ascending colon,
�� � � � � � � � � � � removed with mucosal resection. Resected and retrieved.
�� � � � � � � � � � � - One 8 mm polyp in the descending colon, removed with
�� � � � � � � � � � � a cold snare. Resected and retrieved.
�� � � � � � � � � � � - Mucosal resection was performed. Resection and
�� � � � � � � � � � � retrieval were complete.
Assessment / Plan
-
Pt is an 83yo presents with hx afib on Eliquis, GI bleed post colonoscopy with noted polyps, gastric angioectasia 05/2022, ENRICO, COPD, CVA, CAD with stent, subclavian steal, HTN, gout, suspected cognitive impairment with compression fracture. She
was seen in 2022 with concern for possible aspiration with eating and esophageal retention but improved with diet and no further testing was needed. She now presents lower back pain and concern for compression fracture. She is noted today with
rectal bleeding with loose stool and some blood mixed with stools. Pt with some drop in hbg since admission with hbg 9-[address] on admission 12/01 no retroperitoneal hematoma with multiple findings but noted moderate distention of rectal
with stool and no finding of colitis. Last EGD �05/2022 Tortuous esophagus, HH, non bleeding angioectasia in stomach with APC, clip placed. + covid after admission. Colonoscopy: �05/2022� walp � �perianal skin tags hemorrhoids, diverticulosis,
polyps
-rectal bleeding
-diarrhea with large stool burden in rectum on exam and on CT likely overflow
-hemorrhoids on exam
-hx dysphagia
-acute on chronic back pain
-hx comp fracture
-afib on Eliquis
-anemia
other medical problems:
-CAD with SC stent
-COPD
-GI bleeding with prior gastric angioectasia, polyps 2021
-HTN
-cognitive decline
PLAN:
Etiology of bleeding likely local source with large stool burden on exam and note on CT, hemorrhoidal vs other
cont for soft impaction with overflow
plan for enema to clear stool
will change bowel regiment to miralax BID and senna at HS
trend hbg currently 9.4 with baseline 9-10
cont regular diet as tolerated
left message for daughter with update
will try to hold on scope as completed in 2021
if increased bleeding will need to further review with family as difficulty with past procedure
updated nursing staff
ok to continue Eliquis
-
-
Thank you for consultation and allowing me to participate in the patient's care. Please call the hydroelectric station operator chief GI physician during the after hours with any questions or concerns.
--- NOTE | 2023-12-04 14:02 | CON.NS ---
Consultation
-
Date/Time Consultation Performed: 14:00, 12/04/2023
Performing Provider: Savanna
Chief Complaint
History of Present Illness
This is a neurosurgical consultation on an 83-year-old female, with a known history of thoracic, and lumbar compression fractures, who presented with back pain, and an episode of sweatiness/clamminess and nausea prior to arrival. Patient had an MRI
scan in October 2022, which demonstrated multiple compression fractures. The patient started having worsening back pain during ambulation and with bending forward. She trialed tramadol and Tylenol, which did not help her symptoms. She also
started physical therapy just prior to her presentation, which significantly exacerbated her symptoms. She denies any trauma or any falls.
Given her ongoing back pain symptoms, neurosurgery consulted.
Patient seen and examined. She reports severe back pain, which is new, started over the last several days. She denies any radiating symptoms. She denies any numbness, tingling, or weakness of lower extremities. She denies any bowel or bladder
changes. She reports that the pain is quite low, near her tailbone, in the midline.
Review of Systems
-
A 10 point review of systems was performed which includes constitutional, ENT, cardiovascular, respiratory, GI, , endocrinologic, neurologic, musculoskeletal, psychiatric, was negative, except for stated in HPI.
Medication and Allergies
Home Medications
Home Medications
�Medication �Instructions �Recorded
memantine 10 mg tablet 10 mg PO BID Neurological Condition 12/13/21
sertraline 50 mg tablet 50 mg PO QPM Depression 12/13/21
donepezil 10 mg tablet 10 mg PO DAILY memory 05/26/22
cholecalciferol (vitamin D3) 25 25 mcg PO DAILY Supplement 10/14/22
mcg (1,000 unit) tablet (Vitamin
D3)
montelukast 10 mg tablet 10 mg PO DAILY asthma 10/14/22
(Singulair)
diltiazem HCl 240 mg 240 mg PO QPM Arrhythmia 06/20/23
capsule,extended release 24 hr
atorvastatin 40 mg tablet 40 mg PO QPM High Cholesterol 09/10/23
budesonide-formoterol HFA 160 2 puff inhalation R DAILY 09/10/23
mcg-4.5 mcg/actuation aerosol Lung/Breathing Issues
inhaler (Symbicort)
docusate sodium 100 mg capsule 100 mg PO DAILY Gastrointestinal 09/10/23
(Colace) Issue
furosemide 40 mg tablet 40 mg PO DAILY Fluid 09/10/23
Retention/Swelling
pantoprazole 40 mg tablet,delayed 40 mg PO DAILY Gastrointestinal 09/10/23
release Issue
alprazolam 0.5 mg tablet 0.5 mg PO TID anxiety 12/02/23
apixaban 5 mg tablet (Eliquis) 5 mg PO BID Blood Clot 12/02/23
Prevention/Tx
tiotropium bromide 18 mcg capsule 1 cap inhalation R DAILY 12/02/23
with inhalation device (Spiriva Lung/Breathing Issues
with HandiHaler)
tramadol 50 mg tablet 50 mg PO TID PRN moderate pain 12/02/23
Allergies
Allergies
Allergy/AdvReac Type Severity Reaction Status Date / Time
codeine Allergy Itching Verified 12/02/23 13:44
Iodinated Contrast Media Allergy Unknown Verified 12/02/23 13:44
iodine Allergy Unknown Verified 12/02/23 13:44
methylprednisolone Allergy Rash Verified 12/02/23 13:44
Penicillins Allergy Hives Verified 12/02/23 13:44
prednisone Allergy Unknown Verified 12/02/23 13:44
shellfish derived Allergy Swelling/an Verified 12/02/23 21:23
gioedema
Physical Exam
-
Exam:
Awake, alert, conversant
Cranial nerves II through XII are grossly intact.
Motor: 5/5 strength in upper and lower extremities in all muscle groups.
Sensation: Intact to light touch in all dermatomes.
Gait not tested.
Reflexes 2+ and symmetric bilaterally in upper and lower extremities.
Head is normocephalic atraumatic.
Neck is supple.
Breathing nonlabored
Abdomen is soft
Rate is irregular.
Extremities are warm.
Pulses palpable
Exams: CT Abd/pelvis Wo Iv Cont
EXAMINATION: CT of the abdomen and pelvis without oral contrast and without intravenous contrast
INDICATION: 83-year-old with severe low back pain. Patient is on eliquis. Concern for retroperitoneal bleed. History of dementia.
COMPARISON: MRI of the lumbar spine from October 14, 2022. No previous CT of the abdomen and pelvis is available.
FINDINGS: CT of the abdomen and pelvis is performed without oral contrast and without intravenous contrast.
There appears to be a trace amount of bilateral pleural fluid within the visualized lower hemithoraces. There is adjacent parenchymal opacity within the posterior lower lobes, more confluent on the left compared to the right. Morphologic appearance
is more suggestive of atelectasis, although pneumonia is difficult to entirely exclude, and please correlate clinically.
There is no significant pericardial effusion.
Mild calcification region of the aortic valve. Coronary artery calcifications and/or stents are noted. Please correlate with symptoms of and risk factors for coronary artery disease, with further workup as clinically appropriate.
There is no evidence for retroperitoneal hematoma. There is no evidence for rectus hematoma.
No evidence for hematoma within the visualized proximal thighs.
Peripherally calcified gallstone is present which has maximum dimension of 2.5 cm. There are no CT findings to suggest acute cholecystitis. There is no evidence of biliary ductal dilation.
No significant abnormality of the unenhanced liver.
The unenhanced spleen has a normal appearance.
Both adrenal glands appear normal. There is no abnormality of the unenhanced pancreas.
Suggestion of mild renal parenchymal thinning involving the kidneys. Central vascular calcifications are present with no evidence for nephrolithiasis. No focal abnormality of the unenhanced kidneys.
There is moderate to severe vascular calcification with no aortic aneurysm.
No significantly enlarged abdominal or pelvic lymph nodes are identified.
The uterus is enlarged and lobulated compatible with diffuse fibroid involvement, as seen on MRI of the lumbar spine from October 14, 2022.
The rectum is moderately distended with stool, transverse dimension of 7.3 cm. There is no CT evidence for stercoral colitis.
The appendix appears normal. There is no evidence for bowel obstruction and no free intraperitoneal air.
Transitional anatomy at the lumbosacral junction with partial sacralization of L5, which maintains consistency with numbering from MRI of the lumbar spine October 14, 2022. There is a mild superior endplate compression deformity of T12, slightly
progressing since MRI examination of October 2022, but morphologic appearance suggesting that this is a chronic compression deformity.
Compression deformity of L2 with retropulsion of the posterior and superior margin of the L2 vertebral body, stable.
Mild to moderate compression deformity of L3, probably fairly similar to MRI in 2022.
There is no evidence for an acute compression fracture of the lumbar or lower thoracic spine.
Mild dextroconvex scoliosis centered in the lower lumbar spine with mild levoconvex scoliosis centered in the upper lumbar spine.
Moderate to severe degenerative changes of both hip joints. Moderate degenerative change of the symphysis pubis.
IMPRESSION: There is no evidence for retroperitoneal hematoma. There is no evidence for rectus hematoma.
Trace amount of pleural fluid within the visualized inferior hemithoraces posteriorly. There is adjacent parenchymal opacity within the posterior lower lobes of the lungs, left greater than right. Morphologic appearance is most suggestive of
atelectasis, although pneumonia difficult to completely exclude.
Peripherally calcified gallstone is present. No CT findings to suggest acute cholecystitis.
Moderate to severe vascular calcification with no evidence for abdominal aortic aneurysm.
Enlarged and lobulated uterus, compatible with fibroid.
Moderate distention of the rectum with stool, with no findings to suggest stercoral colitis.
Compression deformities of the lower thoracic and lumbar spine, with morphologic appearance suggesting that these represent old fractures. There is no convincing CT evidence for an acute fracture of the visualized spine.
I reviewed the CT abdomen/pelvis images, and agree with report above. Compression deformities at T12, L2, L3 appears to be chronic in nature, and were present on previous imaging the lumbar spine performed in October 2022.
Problems
-
Problem Status Onset Code
Acute exacerbation of chronic low back pain M54.50, G89.29
Assessment / Plan
-
This is an [id number] who presents with acute exacerbation of chronic back pain. She has a known history of thoracic and lumbar compression fractures. Given her symptomatology, agree with MRI of the lumbar spine. Discussed with hospital
medicine. Patient has elevated ESR, CRP.
Therefore, would recommend obtaining MRI of the thoracic and lumbar spine with and without contrast to better evaluate/ensure there is not an underlying infectious process.
Will follow-up on MRI scan.
Continue with pain control.
[2023-12-04 15:55] VITALS: BP 140/54
[2023-12-04 16:24] VITALS: BP 140/54
[2023-12-04] MEDS: CARDIZEM CD 240 MG PO (16:33)
[2023-12-04] MEDS: LIPITOR 40 MG PO (16:34)
[2023-12-04] MEDS: ZOLOFT 50 MG PO (16:35)
[2023-12-04] MEDS: SENOKOT 17.1999999999999993 MG PO (22:39)
[2023-12-04 23:46] VITALS: BP 92/54
[2023-12-05 02:17] VITALS: BP 151/49
[2023-12-05 05:24] VITALS: BMI 27.6
[2023-12-05 07:36] LABS: % Basophils 0.9 % (0-2); % Eosinophils 3.5 % (0-6); % Immature Granulocytes 0.3 % (0-0.5); % Lymphocytes 32.6 % (20.5-51.1); % Monocytes 11.3 % (1.7-9.3); % Neutrophils 51.4 % (42.2-75.2); Absolute Basophils 0.1 10^3/uL (0-0.2); Absolute Eosinophils 0.3 10^3/uL (0-0.7); Absolute Lymphocytes 2.6 10^3/uL (1.2-3.4); Absolute Monocytes 0.9 10^3/uL (0.1-0.6); Absolute Neutrophils 4.1 10^3/uL (1.4-6.5); Hematocrit 27.8 % (37.0-47.0); Hemoglobin 9.2 g/dL (12.0-16.0); Mean Corp Hgb Conc. 33.1 g/dL (33.0-37.0); Mean Corpuscular Hgb 27.4 pg (27.0-31.0); Mean Corpuscular Volume 82.7 fL (81.0-99.0); Mean Platelet Volume 9.8 fL (7.4-10.4); Nucleated Red Blood Cells % 0 %; Platelet Count 356 10^3/uL (130-400); Red Blood Cell Count 3.36 10^6/uL (4.20-5.40); Red Cell Dist. Width 13.6 % (11.5-14.5); White Blood Cell Count 7.9 10^3/uL (4.8-10.8)
[2023-12-05] MEDS: SPIRIVA RESPIMAT 2.5 MCG 2 PUFF INH (08:07)
[2023-12-05] MEDS: SYMBICORT 160/4.5 MCG INHALER 2 PUFF INH (08:07)
[2023-12-05 08:34] LABS: Blood Urea Nitrogen 17 mg/dl (7-17); Calcium 8.8 mg/dl (8.4-10.2); Carbon Dioxide 29 mmol/L (22-30); Chloride 97 mmol/L (98-107); Estimated Creatinine Clearance 32 ml/min; Glucose 88 mg/dl (70-99); Potassium 3.5 mmol/L (3.5-5.1); Sodium 131 mmol/L (135-145); eGFR 49.55
[2023-12-05 08:35] VITALS: BP 133/47
[2023-12-05] MEDS: LIDOCAINE 4% PATCH 1 PATCH TOPICAL (10:25)
[2023-12-05] MEDS: XANAX 0.5 MG PO ×3 (10:25→21:03)
[2023-12-05] MEDS: MIRALAX 17 GRAMS PO ×2 (10:25→21:03)
[2023-12-05] MEDS: LASIX 40 MG PO (10:26)
[2023-12-05] MEDS: PROTONIX 40 MG PO (10:26)
[2023-12-05] MEDS: COLACE 100 MG PO (10:26)
[2023-12-05] MEDS: SINGULAIR 10 MG PO (10:26)
[2023-12-05] MEDS: NAMENDA 5 MG PO ×2 (10:26→21:03)
[2023-12-05] MEDS: ARICEPT 10 MG PO (10:26)
[2023-12-05] MEDS: ELIQUIS 5 MG PO ×2 (10:28→21:03)
[2023-12-05] MEDS: VITAMIN D3 (cholecalciferol) 25 MCG PO (10:29)
--- NOTE | 2023-12-05 10:31 | WOUNDNOTE ---
[facility] RN note: Patient seen for HAPI report for stage 2 gluteal cleft pressure injury. Lower coccyx with small linear dermal opening r/t moisture. Patient incontinent of urine. Bella care given, air overlay applied and patient turned with help from
PCT/RN Pat. Skin on heels blanchable red. Heels off bed with pillow. Air chair cushion given. Updated RN Jannie who was agreeable to air overlay mattress. Care plan to be updated. Consult as needed.
[2023-12-05 11:19] VITALS: BP 137/99; PULSE 61; O2SAT 96
--- NOTE | 2023-12-05 12:52 | CM ---
ems manager reviewed patient's chart and spoke with patient's daughter regarding skilled options, patient's daughter Jessica has had experiences with skilled placement in past and is only agreeable to [facility] per daughter, Jessica referral sent to
[facility].
Plan; Skilled placement at [facility] or home with patient's daughter Jessica and son.
[2023-12-05 15:30] VITALS: BP 127/40
[2023-12-05] MEDS: CARDIZEM CD 240 MG PO (16:30)
[2023-12-05] MEDS: ZOLOFT 50 MG PO (16:30)
[2023-12-05] MEDS: LIPITOR 40 MG PO (16:30)
--- NOTE | 2023-12-05 18:15 | W.PN.HOSP.TC ---
Today's Communication/Plan
-
Pain controlled
SNF placement
No OM or discitis on MRI
Assessment / Plan
Assessment / Plan
Physical Exam
General: Well Developed, Well Nourished and No Apparent Distress
HEENT: Normocephalic, Moist mucous membranes and Atraumatic
Respiratory: Clear
Cardiac: S1/S2 and Regular Rhythm; No Murmur or Rub
GI: Soft, Non Tender, Non Distended and Normal Bowel Sounds
Musculoskeletal: No Cyanosis and No Edema
Skin: Warm. Dry.
Neuro: Nonfocal/grossly intact
Assessment/Plan
# Acute on chronic lower back pain
# History of compression fracture of T12/L2/L3
# History of degenerative lumbar disc disease with bulges/neuroforaminal stenosis at L4-L5 with impingement of left L4 nerve root
-Tender to palpation of center lumbar spine, able to lift legs against resistance
-CT abdomen pelvis shows compression deformities of the lower thoracic and lumbar spine suggesting old fractures without evidence of acute fracture
-Continue Tylenol, lidocaine patch, tramadol
-As needed morphine
-PT/OT
-Neurosurgery consulted, recommendations appreciated
-CRP is elevated therefore ordered MRI L-Spine and T-spine with and without contrast: however these imaging studies do not show disciitis or osteomyelitis
#Red, Heme-Positive Stool Found on December 04, 2023
-Consulted GI, recommendations appreciated
-Patient's daughter Jessica would prefer not to have patient have a colonoscopy
-Bleed could have possibly been from hemorrhoids
-Okay to continue Eliquis as per GI
# Vasovagal episode secondary to pain
-Has resolved
-troponin negative
-EKG normal sinus
# Transient hypoxia likely secondary to pain vs. atelectasis vs. less likely pneumonia
-Lungs sound clear
-No longer hypoxic
#Hypokalemia - RESOLVED
Paroxysmal atrial fibrillation
-Continue Eliquis
-Continue diltiazem
CAD with stent
Chronic HFpEF
-Continue Lasix
Chronic anemia due to chronic disease
-Hemoglobin at baseline
History of CVA
Subclavian steal syndrome with 30 to 40% blockage on the right
COPD on 2.5 L at baseline
Chronic respiratory failure with hypoxia
-Continue inhalers
-Continue montelukast
History of CAD
Essential hypertension
GERD
-Continue Protonix
Hyperlipidemia
-Continue statin
CKD 3B
-Renal function at baseline
Alzheimer's disease
-Continue donepezil, memantine
History of Mcnulty's palsy
Anxiety/depression
-Continue Xanax, sertraline
Hypoalbuminemia
Ex-smoker
History of hemorrhoids
Moderate diffuse coarsening of the interstitial markings throughout both lungs which could be interstitial pneumonia/bronchiolitis on CT Imaging
Trace amount of pleural fluid within the visualized inferior hemithoraces posteriorly on CT Imaging.
Parenchymal opacity at the posterior lower lobes of the lungs, left greater than right, on CT imaging likely atelectasis but less likely pneumonia
Peripherally calcified gallstone on CT imaging
Moderate to severe vascular calcification in aorta on CT Imaging
Enlarged and lobulated uterus, compatible with fibroid on CT Imaging
Moderate distention of the rectum with stool on CT Imaging
Compression deformities of the lower thoracic and lumbar spine on CT Imaging suggesting old compression fractures
DNR/DNI
DVT prophylaxis�Eliquis
Regular diet
On December 04, 2023, I spoke extensively to the patient's daughter Jessica. All questions and concerns were answered to satisfaction.
On December 05, 2023, I spoke extensively to the patient's daughter Scar. All questions and concerns were answered to satisfaction.
Total time spent today on reviewing patient's chart, seeing and examining the patient, documentation, placing orders, speaking extensively with the patient's daughter, was 55 minutes.
Anticipated Discharge: 24 - 48 hours
Subjective/Interval History
-
Date of Service: December 05, 2023
Patient was seen and examined. She reported that her back pain has essentially resolved. Patient's daughter was present in the room at the time of second encounter with the patient.
Objective Data
-
Labs:
Laboratory Results
12/05/23
06:39
WBC 7.9
Hgb 9.2 L
Hct 27.8 L
Plt Count 356
Sodium 131 L
Potassium 3.5
Chloride 97 L
Carbon Dioxide 29
BUN 17
Creatinine 1.1 H
Glucose 88
Calcium 8.8
Vital Signs:
Vital Signs
Temp Pulse Resp BP Pulse Ox
99.2 F 61 20 127/40 94
12/05/23 15:30 12/05/23 15:30 12/05/23 15:30 12/05/23 16:30 12/05/23 15:30
I&O
12/04/23 12/05/23 12/06/23
06:59 06:59 06:59
Intake Total 1440 / 1440 720 / 720 480 / 480
Balance 1440 / 1440 720 / 720 480 / 480
[2023-12-05] MEDS: SENOKOT 17.1999999999999993 MG PO (21:03)
[2023-12-05 23:28] VITALS: BP 116/84
[2023-12-06 06:00] VITALS: BMI 29.0
[2023-12-06 07:00] VITALS: BP 120/63
[2023-12-06 07:47] LABS: % Basophils 1.1 % (0-2); % Eosinophils 3.9 % (0-6); % Immature Granulocytes 0.3 % (0-0.5); % Lymphocytes 25.4 % (20.5-51.1); % Monocytes 10.5 % (1.7-9.3); % Neutrophils 58.8 % (42.2-75.2); Absolute Basophils 0.1 10^3/uL (0-0.2); Absolute Eosinophils 0.3 10^3/uL (0-0.7); Absolute Monocytes 0.8 10^3/uL (0.1-0.6); Absolute Neutrophils 4.6 10^3/uL (1.4-6.5); Hematocrit 32.2 % (37.0-47.0); Hemoglobin 11.1 g/dL (12.0-16.0); Mean Corp Hgb Conc. 34.5 g/dL (33.0-37.0); Mean Corpuscular Hgb 27.7 pg (27.0-31.0); Mean Corpuscular Volume 80.3 fL (81.0-99.0); Mean Platelet Volume 9.8 fL (7.4-10.4); Nucleated Red Blood Cells % 0 %; Platelet Count 393 10^3/uL (130-400); Red Blood Cell Count 4.01 10^6/uL (4.20-5.40); Red Cell Dist. Width 13.4 % (11.5-14.5); White Blood Cell Count 7.9 10^3/uL (4.8-10.8)
[2023-12-06] MEDS: SPIRIVA RESPIMAT 2.5 MCG 2 PUFF INH (08:05)
[2023-12-06] MEDS: SYMBICORT 160/4.5 MCG INHALER 2 PUFF INH (08:05)
[2023-12-06 08:27] LABS: Blood Urea Nitrogen 14 mg/dl (7-17); Calcium 9.6 mg/dl (8.4-10.2); Carbon Dioxide 31 mmol/L (22-30); Chloride 98 mmol/L (98-107); Estimated Creatinine Clearance 36 ml/min; Glucose 97 mg/dl (70-99); Potassium 3.7 mmol/L (3.5-5.1); Sodium 135 mmol/L (135-145); eGFR 55.55
[2023-12-06] MEDS: LIDOCAINE 4% PATCH 1 PATCH TOPICAL (08:58)
[2023-12-06] MEDS: VITAMIN D3 (cholecalciferol) 25 MCG PO (08:59)
[2023-12-06] MEDS: MIRALAX 17 GRAMS PO ×2 (08:59→20:58)
[2023-12-06] MEDS: XANAX 0.5 MG PO ×3 (08:59→21:00)
[2023-12-06] MEDS: ARICEPT 10 MG PO (08:59)
[2023-12-06] MEDS: LASIX 40 MG PO (08:59)
[2023-12-06] MEDS: PROTONIX 40 MG PO (08:59)
[2023-12-06] MEDS: COLACE 100 MG PO (09:00)
[2023-12-06] MEDS: ELIQUIS 5 MG PO ×2 (09:00→21:01)
[2023-12-06] MEDS: NAMENDA 5 MG PO ×2 (09:00→20:59)
[2023-12-06] MEDS: SINGULAIR 10 MG PO (09:00)
--- NOTE | 2023-12-06 09:17 | CM ---
Addendum entered by Mohini Cheung 12/06/23 15:56:
Plan: Home tomorrow, family did not want any other skilled facilities.
Ambulance transport forms on chart.
Addendum entered by Mohini Cheung 12/06/23 09:34:
TCB from Jessica, if patient is stable for discharge, daughter requested discharge home for tomorrow.
Original Note:
Spoke with daughter Jessica.
No beds available at [facility]. She will discuss with her sister alternate facilities and call this CM back.
Reviewed therapy notes with daughter who felt patient close to baseline.
If daughter decides to for patient to come right home, there is 1 step to enter the home, but she also has a ramp that can be put out.
Patient has a hospital bed on the 1st floor.
Patient will require ambulance transport.
Plan: Home vs skilled if bed available.
--- NOTE | 2023-12-06 10:16 | W.PN.UPDATE ---
Update Note
Progress Note Update
MRI of thoracic and lumbar spine with and without commercial food instructor reviewed. No obvious evidence of new/occult compression fracture noted. No severe neural compression noted. NO evidence of osteomyelitis or discitis.
Therefore, no indication for neurosurgical operative intervention.
REcommend pain control, PT, mobilize as tolerated.
Further workup/management per hospital medicine.
--- NOTE | 2023-12-06 12:15 | CON.PUL ---
Consultation
Consultation Request
Date/Time Consultation Requested: 12/06/23
Date/Time Consultation Performed: 12/06/23
Performing Provider: Elliott
Reason for Consultation: Incidental Nodule
Medical History
-
History of Present Illness:
Patient is a 83-year-old female with past medical history paroxysmal atrial fibrillation on Eliquis, CAD with stent, chronic HFpEF, COPD on 2.5 L at baseline, C. difficile antigen positive, CVA, subclavian steal syndrome, CKD 3B, Alzheimer's
disease, presenting to ER with acute on chronic back pain. Patient has a history of chronic back pain with thoracic and lumbar compression fractures. A few days ago she started complaining of worsening pain in her lower back during ambulation
and when she bends forward. No radiation of pain down the legs or to the hip. She was prescribed tramadol which she started the next day. Pain was not relieved with her regiment.
Admitted 12/02/23 for observation with repeat MRI showing chronic fractures/unchanged. She was evaluated by Neurosx and deemed to need no intervention.
There is mention of 1.4cm pulmonary nodule in left mid lung field incidentally noted on MRI new from prior study in 2021.
She is a former smoker, but does not given accurate smoking history (due to her baseline dementia/confusion). She has seen Dr Jones in the past, last visit 2022. Denies family history of lung cancer.
.
Past Medical History
Past Medical History: Other (see list below)
Social History
Tobacco: Former Smoker
Alcohol: None
Drug: None
Family History
Family History: Reviewed & Not Pertinent
Allergies / Home Medications
Allergies
Allergy/AdvReac Type Severity Reaction Status Date / Time
codeine Allergy Itching Verified 12/02/23 13:44
Iodinated Contrast Media Allergy Unknown Verified 12/02/23 13:44
iodine Allergy Unknown Verified 12/02/23 13:44
methylprednisolone Allergy Rash Verified 12/02/23 13:44
Penicillins Allergy Hives Verified 12/02/23 13:44
prednisone Allergy Unknown Verified 12/02/23 13:44
shellfish derived Allergy Swelling/an Verified 12/02/23 21:23
gioedema
Home Medications
�Medication �Instructions �Recorded �Confirmed �Last Taken �Type
memantine 10 mg tablet 10 mg PO BID Neurological Condition 12/13/21 12/02/23 12/02/23 History
sertraline 50 mg tablet 50 mg PO QPM Depression 12/13/21 12/02/23 12/01/23 History
donepezil 10 mg tablet 10 mg PO DAILY memory 05/26/22 12/02/23 12/02/23 History
cholecalciferol (vitamin D3) 25 25 mcg PO DAILY Supplement 10/14/22 12/02/23 12/02/23 History
mcg (1,000 unit) tablet (Vitamin
D3)
montelukast 10 mg tablet 10 mg PO DAILY asthma 10/14/22 12/02/23 12/02/23 History
(Singulair)
diltiazem HCl 240 mg 240 mg PO QPM Arrhythmia 06/20/23 12/02/23 12/01/23 History
capsule,extended release 24 hr
atorvastatin 40 mg tablet 40 mg PO QPM High Cholesterol 09/10/23 12/02/23 12/01/23 History
budesonide-formoterol HFA 160 2 puff inhalation R DAILY 09/10/23 12/02/23 12/02/23 History
mcg-4.5 mcg/actuation aerosol Lung/Breathing Issues
inhaler (Symbicort)
docusate sodium 100 mg capsule 100 mg PO DAILY Gastrointestinal 09/10/23 12/02/23 12/02/23 History
(Colace) Issue
furosemide 40 mg tablet 40 mg PO DAILY Fluid 09/10/23 12/02/23 12/02/23 History
Retention/Swelling
pantoprazole 40 mg tablet,delayed 40 mg PO DAILY Gastrointestinal 09/10/23 12/02/23 12/02/23 History
release Issue
alprazolam 0.5 mg tablet 0.5 mg PO TID anxiety 12/02/23 12/02/23 12/02/23 History
apixaban 5 mg tablet (Eliquis) 5 mg PO BID Blood Clot 12/02/23 12/02/23 12/02/23 History
Prevention/Tx
tiotropium bromide 18 mcg capsule 1 cap inhalation R DAILY 12/02/23 12/02/23 12/02/23 History
with inhalation device (Spiriva Lung/Breathing Issues
with HandiHaler)
tramadol 50 mg tablet 50 mg PO TID PRN moderate pain 12/02/23 12/02/23 Unknown History
Review of Systems
Vitals / Labs / Diagnostic Testing
Vital Signs
Temp Pulse Resp BP Pulse Ox
98.0 F 75 16 120/63 97
12/06/23 07:00 12/06/23 08:59 12/06/23 08:13 12/06/23 08:59 12/06/23 08:13
Lab Data
12/06/23 06:30
12/06/23 06:30
Microbiology
12/04/23 10:58 Nasal Swab Influenza Types A & B ([facility]WSON) - Final
Negative for Influenza A & B, NAAT
Negative results must be combined with clinical observations
and patient history.
Nucleic Acid Amplification test (NAAT)performed on the
[employer] platform.
12/02/23 17:23 Urine Urine Culture - Final
Enterobacter cloacae
Diagnostic Testing:
Physical Exam
-
HEENT: Normocephalic, Anicteric and Moist Mucous Membranes
Cardiovascular: S1/S2 and Regular Rhythm
Respiratory: Clear and Non-Labored Respirations
GI: Soft, Non Distended and Non Tender
Neurology: Awake, Alert, Oriented (to self, place), No Motor Deficits and Other (confused on her timeline/history but can answer simple questions)
Skin: Warm, Dry and Good Color
General: Comfortable, Other (NAD) and Other (chronically ill appearing/disheveled)
Assessment
-
Patient is a 83-year-old female with past medical history paroxysmal atrial fibrillation on Eliquis, CAD with stent, chronic HFpEF, COPD on 2.5 L at baseline, C. difficile antigen positive, CVA, subclavian steal syndrome, CKD 3B, Alzheimer's
disease, presenting to ER with acute on chronic back pain. Patient has a history of chronic back pain with thoracic and lumbar compression fractures. A few days ago she started complaining of worsening pain in her lower back during ambulation
and when she bends forward. Admitted 12/02/23 for observation with repeat MRI showing chronic fractures/unchanged. She was evaluated by Neurosx and deemed to need no intervention.
There is mention of 1.4cm pulmonary nodule in left mid lung field incidentally noted on MRI new from prior study in 2021. We are consulted for eval.
Pulmonary nodule
Acute on chronic back pain
Known history of thoracic and lumbar compression fractures
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
COPD, chronic O2 2.5L at home, Symbicort, tiotropium, albuterol HFA, montelukast
GERARDO edema, on furosemide
L Mcnulty's palsy
Stroke
Subclavian steal syndrome
Syncope
CKD
UTI
CAD
AFib on apixaban
HF
HTN
HLD
Cognitive decline
Former smoker: 1 ppd for 20 y til age 39
Plan:
Continue O2 protocol, 97%/ stable on 2L
Per records, already on O2 2.5L for COPD at home
Keep asp precs
COPD history, follows with Dr Jones
She is a former smoker, but does not given accurate smoking history (due to her baseline dementia/confusion).
She has seen Dr Jones in the past, last visit 2022. Denies family history of lung cancer.
MRI reviewed showing new 1.4cm L sided nodule
This is new compared to study in 2021
We will obtain dedicated chest CT while she is here, this can be followed as OP
No symptoms to suggest AECOPD
Not wheezing
Continue symbicort, tiotropium/home regiment
PRN alb HFA, nebs prn
Chronic back pain, not significantly changed on MRI
Neurosx eval appreciated
Chronic apixaban (AFib) resumed
Likely dc to SNF per team
PT/OT, rehab eval
We will follow
Diagnostic tests:
CXR 12/02/23- There is moderate diffuse coarsening of the interstitial markings throughout both lungs which I favor is interstitial pneumonia/bronchiolitis rather than pulmonary edema. Additionally, there is confluent parenchymal airspace disease in
the retrocardiac left lung base which may be atelectasis or pneumonia.
CXR 09-10-22 c/w Oct 2022. L basilar atelectatic changes in lateral view. No major changes in mild cephalization of vessels and prominent R hilar vessel. No infiltrates
CT AP 12/02/23- Lung views: There appears to be a trace amount of bilateral pleural fluid within the visualized lower hemithoraces. There is adjacent parenchymal opacity within the posterior lower lobes, more confluent on the left compared to the
right. Morphologic appearance is more suggestive of atelectasis, although pneumonia is difficult to entirely exclude, and please correlate clinically.
MRI T-spine 12/05/23- In the posterior and medial left lung at the T7 level, 1.4 cm nodular focus of intermediate T1-weighted signal. This could represent a rounded area of pneumonia or atelectasis, but a small neoplasm/cancer is possible. Further
evaluation with CT of the chest is advised.
[2023-12-06 15:00] VITALS: BP 105/59
--- NOTE | 2023-12-06 16:05 | W.PN.HOSP.TC ---
Today's Communication/Plan
-
Anticipated discharge tomorrow
Appreciate pulmonary and neurosurgery recommendations
Assessment / Plan
Assessment / Plan
Physical Exam
General: Well Developed, Well Nourished and No Apparent Distress
HEENT: Normocephalic, Moist mucous membranes and Atraumatic
Respiratory: Clear
Cardiac: S1/S2 and Regular Rhythm
GI: Soft, Non Tender, Non Distended and Normal Bowel Sounds
Musculoskeletal: No Cyanosis and No Edema
Skin: Warm. Dry.
Neuro: Nonfocal/grossly intact
Assessment/Plan
# Acute on chronic lower back pain
# History of compression fracture of T12/L2/L3
# History of degenerative lumbar disc disease with bulges/neuroforaminal stenosis at L4-L5 with impingement of left L4 nerve root
-Tender to palpation of center lumbar spine, able to lift legs against resistance
-CT abdomen pelvis shows compression deformities of the lower thoracic and lumbar spine suggesting old fractures without evidence of acute fracture
-Continue Tylenol, lidocaine patch, tramadol
-As needed morphine
-PT/OT
-Neurosurgery consulted, recommendations appreciated
-CRP is elevated therefore ordered MRI L-Spine and T-spine with and without contrast: however these imaging studies do not show disciitis or osteomyelitis
#New 1.4 cm left-sided nodule
-Consulted pulmonary, recommendations appreciated
#Red, Heme-Positive Stool Found on December 04, 2023
-Consulted GI, recommendations appreciated
-Patient's daughter Jessica would prefer not to have patient have a colonoscopy
-Bleed could have possibly been from hemorrhoids
-Okay to continue Eliquis as per GI
# Vasovagal episode secondary to pain
-Has resolved
-troponin negative
-EKG normal sinus
# Transient hypoxia likely secondary to pain vs. atelectasis vs. less likely pneumonia
-Lungs sound clear
-No longer hypoxic
#Hypokalemia - RESOLVED
Paroxysmal atrial fibrillation
-Continue Eliquis
-Continue diltiazem
CAD with stent
Chronic HFpEF
-Continue Lasix
Chronic anemia due to chronic disease
-Hemoglobin at baseline
History of CVA
Subclavian steal syndrome with 30 to 40% blockage on the right
COPD on 2.5 L at baseline
Chronic respiratory failure with hypoxia
-Continue inhalers
-Continue montelukast
History of CAD
Essential hypertension
GERD
-Continue Protonix
Hyperlipidemia
-Continue statin
CKD 3B
-Renal function at baseline
Alzheimer's disease
-Continue donepezil, memantine
History of Mcnulty's palsy
Anxiety/depression
-Continue Xanax, sertraline
Hypoalbuminemia
Ex-smoker
History of hemorrhoids
Moderate diffuse coarsening of the interstitial markings throughout both lungs which could be interstitial pneumonia/bronchiolitis on CT Imaging
Trace amount of pleural fluid within the visualized inferior hemithoraces posteriorly on CT Imaging.
Parenchymal opacity at the posterior lower lobes of the lungs, left greater than right, on CT imaging likely atelectasis but less likely pneumonia
Peripherally calcified gallstone on CT imaging
Moderate to severe vascular calcification in aorta on CT Imaging
Enlarged and lobulated uterus, compatible with fibroid on CT Imaging
Moderate distention of the rectum with stool on CT Imaging
Compression deformities of the lower thoracic and lumbar spine on CT Imaging suggesting old compression fractures
DNR/DNI
DVT prophylaxis�Eliquis
Regular diet
On December 04, 2023, I spoke extensively to the patient's daughter Jessica. All questions and concerns were answered to satisfaction.
On December 05, 2023, I spoke extensively to the patient's daughter Scar. All questions and concerns were answered to satisfaction.
Anticipated Discharge: Within 24 hours
Subjective/Interval History
-
Date of Service: December 06, 2023
Patient was seen and examined. She reported no pain, and denied any new symptoms or significant complaints.
Objective Data
-
Labs:
Laboratory Results
12/06/23
06:30
WBC 7.9
Hgb 11.1 L D
Hct 32.2 L
Plt Count 393
Sodium 135
Potassium 3.7
Chloride 98
Carbon Dioxide 31 H
BUN 14
Creatinine 1.0
Glucose 97
Calcium 9.6
Vital Signs:
Vital Signs
Temp Pulse Resp BP Pulse Ox
98.7 F 80 18 105/59 99
12/06/23 15:00 12/06/23 15:00 12/06/23 15:00 12/06/23 15:00 12/06/23 15:00
I&O
12/05/23 12/06/23 12/07/23
06:59 06:59 06:59
Intake Total 720 / 720 480 / 480 240 / 240
Balance 720 / 720 480 / 480 240 / 240
[2023-12-06] MEDS: CARDIZEM CD 240 MG PO (16:50)
[2023-12-06] MEDS: LIPITOR 40 MG PO (16:50)
[2023-12-06] MEDS: ZOLOFT 50 MG PO (16:50)
[2023-12-06] MEDS: SENOKOT 17.1999999999999993 MG PO (20:58)
[2023-12-06 23:12] VITALS: BP 150/53
[2023-12-07 06:00] VITALS: BMI 28.3
[2023-12-07 07:00] VITALS: BP 140/90
[2023-12-07] MEDS: SYMBICORT 160/4.5 MCG INHALER 2 PUFF INH (08:04)
[2023-12-07] MEDS: SPIRIVA RESPIMAT 2.5 MCG 2 PUFF INH (08:04)
[2023-12-07 08:26] LABS: % Basophils 1.2 % (0-2); % Eosinophils 4.4 % (0-6); % Immature Granulocytes 0.3 % (0-0.5); % Lymphocytes 27.8 % (20.5-51.1); % Monocytes 11.3 % (1.7-9.3); Absolute Basophils 0.1 10^3/uL (0-0.2); Absolute Eosinophils 0.3 10^3/uL (0-0.7); Absolute Lymphocytes 2.2 10^3/uL (1.2-3.4); Absolute Monocytes 0.9 10^3/uL (0.1-0.6); Absolute Neutrophils 4.3 10^3/uL (1.4-6.5); Hematocrit 30.4 % (37.0-47.0); Mean Corp Hgb Conc. 32.9 g/dL (33.0-37.0); Mean Corpuscular Hgb 27.3 pg (27.0-31.0); Mean Corpuscular Volume 83.1 fL (81.0-99.0); Mean Platelet Volume 9.7 fL (7.4-10.4); Nucleated Red Blood Cells % 0 %; Platelet Count 375 10^3/uL (130-400); Red Blood Cell Count 3.66 10^6/uL (4.20-5.40); Red Cell Dist. Width 13.5 % (11.5-14.5); White Blood Cell Count 7.8 10^3/uL (4.8-10.8)
[2023-12-07] MEDS: LIDOCAINE 4% PATCH 1 PATCH TOPICAL (08:48)
[2023-12-07] MEDS: ARICEPT 10 MG PO (08:50)
[2023-12-07] MEDS: XANAX 0.5 MG PO ×3 (08:50→22:03)
[2023-12-07] MEDS: ELIQUIS 5 MG PO ×2 (08:50→22:03)
[2023-12-07] MEDS: MIRALAX 17 GRAMS PO ×2 (08:50→22:03)
[2023-12-07] MEDS: COLACE 100 MG PO (08:50)
[2023-12-07] MEDS: NAMENDA 5 MG PO ×2 (08:50→22:09)
[2023-12-07] MEDS: LASIX 40 MG PO (08:50)
[2023-12-07] MEDS: VITAMIN D3 (cholecalciferol) 25 MCG PO (08:50)
[2023-12-07] MEDS: PROTONIX 40 MG PO (08:50)
[2023-12-07] MEDS: SINGULAIR 10 MG PO (08:51)
[2023-12-07 08:55] LABS: Blood Urea Nitrogen 15 mg/dl (7-17); Calcium 9.3 mg/dl (8.4-10.2); Carbon Dioxide 31 mmol/L (22-30); Chloride 97 mmol/L (98-107); Estimated Creatinine Clearance 27 ml/min; Glucose 90 mg/dl (70-99); Potassium 3.7 mmol/L (3.5-5.1); Sodium 133 mmol/L (135-145); eGFR 40.55
--- NOTE | 2023-12-07 13:42 | W.PN.PUL3 ---
Today's Communication / Plan
-
O2
OOB as tolerated
Follow up with Dr. Jones
No lung Bx to be done at this time given patient's advanced age and dementia
Can consider outpatient PET/CT to assess FDG avidity
Pulmonary service will now sign off. Please reconsult if there are any additional questions/concerns, or if patient's respiratory status deteriorates. Thank you for allowing us to be involved in the care of this patient.
Assessment
-
Patient is a 83-year-old female with past medical history paroxysmal atrial fibrillation on Eliquis, CAD with stent, chronic HFpEF, COPD on 2.5 L at baseline, C. difficile antigen positive, CVA, subclavian steal syndrome, CKD 3B, Alzheimer's
disease, presenting to ER with acute on chronic back pain. Patient has a history of chronic back pain with thoracic and lumbar compression fractures. A few days ago she started complaining of worsening pain in her lower back during ambulation
and when she bends forward. Admitted 12/02/23 for observation with repeat MRI showing chronic fractures/unchanged. She was evaluated by [facility] and deemed to need no intervention.
There is mention of 1.4cm pulmonary nodule in left mid lung field incidentally noted on MRI new from prior study in 2021. We are consulted for eval.
Pulmonary nodule in LLL 1.3cm with mild hilar/mediastinal lymphadenopathy
Acute on chronic back pain
Known history of thoracic and lumbar compression fractures
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
COPD, chronic O2 2.5L at home, Symbicort, tiotropium, albuterol HFA, montelukast
GERARDO edema, on furosemide
L Mcnulty's palsy
Stroke
Subclavian steal syndrome
Syncope
CKD
UTI
CAD
AFib on apixaban
HF
HTN
HLD
Cognitive decline
Former smoker: 1 ppd for 20 y til age 39
Plan:
Continue O2 protocol, 97%/ stable on 2L
Per records, already on O2 2.5L for COPD at home
Keep asp precs
COPD history, follows with Dr Jones
She is a former smoker, but does not given accurate smoking history (due to her baseline dementia/confusion).
She has seen Dr Jones in the past, last visit 2022. Denies family history of lung cancer.
MRI reviewed showing new 1.4cm L sided nodule
This is new compared to study in [address] chest also confirms left lower lobe 1.3 cm nodule with mild hilar/mediastinal lymphadenopathy
No symptoms to suggest AECOPD
Not currently bronchospastic and she does not appear to be having an acute exacerbation
Continue symbicort, tiotropium/home regiment
PRN alb HFA, nebs prn
Chronic back pain, not significantly changed on MRI
Neurosx eval appreciated
Chronic apixaban (AFib) resumed
Likely dc to SNF per team
PT/OT, rehab eval
I called the patient's daughter, Jessica, and discussed the pulmonary nodule with her. I asked that even if this is a cancerous nodule, would we want to put Hilda through chemotherapy versus radiation therapy if it came to that. She says now.
Considering patient's advanced age and dementia, they would like to hold off on any biopsy at this time. She would like to discuss further management with their administrative program specialist, Dr. Jones. We will arrange for follow-up visit after discharge. I
answered all of her questions.
At this time, no further recommendations from pulmonary service. Pulmonary service will now sign off. Please reconsult if there are any additional questions/concerns, or if patient's respiratory status deteriorates. Thank you for allowing us to
be involved in the care of this patient.
Diagnostic tests:
CXR 12/02/23- There is moderate diffuse coarsening of the interstitial markings throughout both lungs which I favor is interstitial pneumonia/bronchiolitis rather than pulmonary edema. Additionally, there is confluent parenchymal airspace disease in
the retrocardiac left lung base which may be atelectasis or pneumonia.
CXR 09-10-22 c/w Oct 2022. L basilar atelectatic changes in lateral view. No major changes in mild cephalization of vessels and prominent R hilar vessel. No infiltrates
CT AP 12/02/23- Lung views: There appears to be a trace amount of bilateral pleural fluid within the visualized lower hemithoraces. There is adjacent parenchymal opacity within the posterior lower lobes, more confluent on the left compared to the
right. Morphologic appearance is more suggestive of atelectasis, although pneumonia is difficult to entirely exclude, and please correlate clinically.
CT Chest 12-07-2023:1.3 cm soft tissue nodule in the medial left lower lobe. Neoplasm to be excluded. Further evaluation/follow-up may be considered with PET/CT.
MRI T-spine 12/05/23- In the posterior and medial left lung at the T7 level, 1.4 cm nodular focus of intermediate T1-weighted signal. This could represent a rounded area of pneumonia or atelectasis, but a small neoplasm/cancer is possible. Further
evaluation with CT of the chest is advised.
Subjective Data
-
Date of Service:
Date of Service: December 07, 2023
Chief Complaint: Pulmonary Follow Up
Subjective:
Patient seen this afternoon. Laying in bed on 2 L/min breathing comfortably. She has no complaints.
Review of Systems
General: Other (Unable to obtain due to dementia)
Objective Data
Data Reviewed
Vital Signs / I&O / Oxygen:
Vital Signs
Temp Pulse Resp BP Pulse Ox
97.4 F 67 16 140/90 95
12/07/23 07:00 12/07/23 08:09 12/07/23 08:09 12/07/23 07:00 12/07/23 08:09
Intake and Output
12/06/23 12/07/23 12/08/23
06:59 06:59 06:59
Intake Total 480 / 480 1200 / 1200
Balance 480 / 480 1200 / 1200
SaO2 95
Nasal Cannula flow liters per 2
minute
Physical Exam
General: Comfortable
HEENT: Normocephalic and Anicteric
Cardiovascular: Peripheral Edema (negative) and Other (Normal rate)
Respiratory: Wheeze (Negative), Crackles (Negative), Rhonchi (Negative), Accessory Resp Muscle Use (Negative) and Other (reduced BS)
GI: Soft, Non Distended and Non Tender
Neurology: Awake, Alert and Other (AAOx 1)
Skin: Warm and Dry
Labs/Micro/Reports
Lab Data
12/07/23 07:48
12/07/23 07:48
Microbiology
12/04/23 10:58 Nasal Swab Influenza Types A & B ([facility]) - Final
Negative for Influenza A & B, NAAT
Negative results must be combined with clinical observations
and patient history.
Nucleic Acid Amplification test (NAAT)performed on the
[employer] platform.
--- NOTE | 2023-12-07 14:57 | W.PN.HOSP.TC ---
Today's Communication/Plan
-
Anticipated discharge tomorrow as family needs to set everything up and ambulance available tomorrow
Assessment / Plan
Assessment / Plan
Physical Exam
General: Well Developed, Well Nourished and No Apparent Distress
HEENT: Normocephalic, Moist mucous membranes and Atraumatic
Respiratory: Clear
Cardiac: S1/S2 and Regular Rhythm
GI: Soft, Non Tender, Non Distended and Normal Bowel Sounds
Musculoskeletal: No Cyanosis and No Edema
Skin: Warm. Dry.
Neuro: Nonfocal/grossly intact
Assessment/Plan
# Acute on chronic lower back pain
# History of compression fracture of T12/L2/L3
# History of degenerative lumbar disc disease with bulges/neuroforaminal stenosis at L4-L5 with impingement of left L4 nerve root
-Tender to palpation of center lumbar spine, able to lift legs against resistance
-CT abdomen pelvis shows compression deformities of the lower thoracic and lumbar spine suggesting old fractures without evidence of acute fracture
-Continue Tylenol, lidocaine patch, tramadol
-As needed morphine
-PT/OT
-Neurosurgery consulted, recommendations appreciated
-CRP is elevated therefore ordered MRI L-Spine and T-spine with and without contrast: however these imaging studies do not show disciitis or osteomyelitis, no indication for neurosurgical operative intervention.
-Continue pain control, PT, mobilize as tolerated.
#New 1.4 cm left-sided nodule
-Consulted pulmonary, recommendations appreciated
-CT Chest showed 1.3 cm soft tissue nodule in the medial left lower lobe.
#Red, Heme-Positive Stool Found on December 04, 2023
-Consulted GI, recommendations appreciated
-Patient's daughter Jessica would prefer not to have patient have a colonoscopy
-Bleed could have possibly been from hemorrhoids
-Okay to continue Eliquis as per GI
# Vasovagal episode secondary to pain
-Has resolved
-troponin negative
-EKG normal sinus
# Transient hypoxia likely secondary to pain vs. atelectasis vs. less likely pneumonia
-Lungs sound clear
-No longer hypoxic
#Hypokalemia - RESOLVED
Paroxysmal atrial fibrillation
-Continue Eliquis
-Continue diltiazem
CAD with stent
Chronic HFpEF
-Continue Lasix
Chronic anemia due to chronic disease
-Hemoglobin at baseline
History of CVA
Subclavian steal syndrome with 30 to 40% blockage on the right
COPD on 2.5 L at baseline
Chronic respiratory failure with hypoxia
-Continue inhalers
-Continue montelukast
History of CAD
Essential hypertension
GERD
-Continue Protonix
Hyperlipidemia
-Continue statin
CKD 3B
-Renal function at baseline
Alzheimer's disease
-Continue donepezil, memantine
History of Mcnulty's palsy
Anxiety/depression
-Continue Xanax, sertraline
Hypoalbuminemia
Ex-smoker
History of hemorrhoids
Moderate diffuse coarsening of the interstitial markings throughout both lungs which could be interstitial pneumonia/bronchiolitis on CT Imaging
Trace amount of pleural fluid within the visualized inferior hemithoraces posteriorly on CT Imaging.
Parenchymal opacity at the posterior lower lobes of the lungs, left greater than right, on CT imaging likely atelectasis but less likely pneumonia
Peripherally calcified gallstone on CT imaging
Moderate to severe vascular calcification in aorta on CT Imaging
Enlarged and lobulated uterus, compatible with fibroid on CT Imaging
Moderate distention of the rectum with stool on CT Imaging
Compression deformities of the lower thoracic and lumbar spine on CT Imaging suggesting old compression fractures
DNR/DNI
DVT prophylaxis�Eliquis
Regular diet
On December 04, 2023, I spoke extensively to the patient's daughter Jessica. All questions and concerns were answered to satisfaction.
On December 05, 2023, I spoke extensively to the patient's daughter Scar. All questions and concerns were answered to satisfaction.
On December 07, 2023, I spoke to the patient's daughter Jessica. All questions and concerns were answered to satisfaction.
Anticipated Discharge: Within 24 hours
Subjective/Interval History
-
Date of Service: December 07, 2023
Patient was seen and examined. She reported no new symptoms or complaints, and denied any pain.
Objective Data
-
Labs:
Laboratory Results
12/07/23
07:48
WBC 7.8
Hgb 10.0 L
Hct 30.4 L
Plt Count 375
Sodium 133 L
Potassium 3.7
Chloride 97 L
Carbon Dioxide 31 H
BUN 15
Creatinine 1.3 H
Glucose 90
Calcium 9.3
Vital Signs:
Vital Signs
Temp Pulse Resp BP Pulse Ox
97.4 F 67 16 140/90 95
12/07/23 07:00 12/07/23 08:09 12/07/23 08:09 12/07/23 07:00 12/07/23 08:09
I&O
12/06/23 12/07/23 12/08/23
06:59 06:59 06:59
Intake Total 480 / 480 1200 / 1200
Balance 480 / 480 1200 / 1200
--- NOTE | 2023-12-07 16:03 | CM ---
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
Plan; Ambulance transport to home tomorrow.
[2023-12-07] MEDS: LIPITOR 40 MG PO (16:39)
[2023-12-07] MEDS: ZOLOFT 50 MG PO (16:39)
[2023-12-07] MEDS: CARDIZEM CD 240 MG PO (16:39)
[2023-12-07 17:00] VITALS: BP 148/58
[2023-12-07] MEDS: SENOKOT 17.1999999999999993 MG PO (22:04)
[2023-12-07 23:15] VITALS: BP 151/57
[2023-12-08 07:39] VITALS: BP 118/57
[2023-12-08] MEDS: ELIQUIS 5 MG PO (07:40)
[2023-12-08] MEDS: LIDOCAINE 4% PATCH 1 PATCH TOPICAL (07:41)
[2023-12-08] MEDS: XANAX 0.5 MG PO (07:42)
[2023-12-08] MEDS: LASIX 40 MG PO (07:42)
[2023-12-08] MEDS: PROTONIX 40 MG PO (07:42)
[2023-12-08] MEDS: ARICEPT 10 MG PO (07:42)
[2023-12-08] MEDS: NAMENDA 5 MG PO (07:44)
[2023-12-08] MEDS: SINGULAIR 10 MG PO (07:44)
[2023-12-08] MEDS: VITAMIN D3 (cholecalciferol) 25 MCG PO (07:44)
[2023-12-08] MEDS: MIRALAX 17 GRAMS PO (07:45)
[2023-12-08] MEDS: COLACE 100 MG PO (07:45)
[2023-12-08] MEDS: SYMBICORT 160/4.5 MCG INHALER 2 PUFF INH (08:07)
[2023-12-08] MEDS: SPIRIVA RESPIMAT 2.5 MCG 2 PUFF INH (08:07)
--- NOTE | 2023-12-08 09:04 | CM ---
Patient is for discharge to home today, patient's daughter has selected [facility] visiting nurses, referral sent to [facility], ambulance transport has been arranged for 1pm.
[facility]
[phone]
--- NOTE | 2023-12-08 11:09 | W.PN.HOSP.TC ---
Today's Communication/Plan
-
Discharge today
Assessment / Plan
Assessment / Plan
Physical Exam
General: Well Developed, Well Nourished and No Apparent Distress
HEENT: Normocephalic, Moist mucous membranes and Atraumatic
Respiratory: Clear to Auscultation Bilaterally
Cardiac: S1/S2 and Regular Rhythm
GI: Soft, Non Tender, Non Distended and Normal Bowel Sounds
Musculoskeletal: No Cyanosis and No Edema
Skin: Warm. Dry.
Neuro: Nonfocal/grossly intact
Assessment/Plan
# Acute on chronic lower back pain
# History of compression fracture of T12/L2/L3
# History of degenerative lumbar disc disease with bulges/neuroforaminal stenosis at L4-L5 with impingement of left L4 nerve root
# Elevated C- reactive protein -- needs further workup outpatient
# Elevated ESR -- need further workup outpatient
-Tender to palpation of center lumbar spine, able to lift legs against resistance
-CT abdomen pelvis showed compression deformities of the lower thoracic and lumbar spine suggesting old fractures without evidence of acute fracture
-Continue Tylenol, lidocaine patch
-Patient has not required Tramadol in several days
-Patient has not required Morphine for about 5 days
-PT/OT
-Neurosurgery consulted, recommendations appreciated
-CRP is elevated therefore ordered MRI L-Spine and T-spine with and without contrast: however these imaging studies do not show disciitis or osteomyelitis, no indication for neurosurgical operative intervention.
-Continue pain control, PT, mobilize as tolerated.
#New 1.4 cm left-sided nodule
-Consulted pulmonary, recommendations appreciated
-CT Chest showed 1.3 cm soft tissue nodule in the medial left lower lobe.
-Pulmonary follow-up outpatient
#Red, Heme-Positive Stool Found on December 04, 2023 -- RESOLVED
-Consulted GI, recommendations appreciated
-Patient's daughter Jessica would prefer not to have patient have a colonoscopy
-Bleed could have possibly been from hemorrhoids
-Okay to continue Eliquis as per GI
# Vasovagal episode secondary to pain - RESOLVED
-Has resolved
-troponin negative
-EKG normal sinus
# Transient hypoxia - RESOLVED - likely secondary to pain vs. atelectasis vs. less likely pneumonia
-Lungs sound clear
-No longer hypoxic
#Hypokalemia - RESOLVED
Paroxysmal atrial fibrillation
-Continue Eliquis
-Continue diltiazem
CAD with stent
Chronic HFpEF
-Continue Lasix
Chronic anemia due to chronic disease
-Hemoglobin at baseline
History of CVA
Subclavian steal syndrome with 30 to 40% blockage on the right
COPD on 2.5 L at baseline
Chronic respiratory failure with hypoxia
-Continue inhalers
-Continue montelukast
History of Coronary Artery Disease
Essential hypertension
Gastroesophageal Reflux Disease
-Continue Protonix
Hyperlipidemia
-Continue statin
Chronic Kidney Disease Stage 3B
-Renal function at baseline
Alzheimer's disease
-Continue donepezil, memantine
History of Mcnulty's palsy
Anxiety/depression
-Continue Xanax, sertraline
Hypoalbuminemia
Ex-smoker
History of hemorrhoids
Moderate diffuse coarsening of the interstitial markings throughout both lungs which could be interstitial pneumonia/bronchiolitis on CT Imaging
Trace amount of pleural fluid within the visualized inferior hemithoraces posteriorly on CT Imaging.
Parenchymal opacity at the posterior lower lobes of the lungs, left greater than right, on CT imaging likely atelectasis but less likely pneumonia
Peripherally calcified gallstone on CT imaging
Moderate to severe vascular calcification in aorta on CT Imaging
Enlarged and lobulated uterus, compatible with fibroid on CT Imaging
Moderate distention of the rectum with stool on CT Imaging
Compression deformities of the lower thoracic and lumbar spine on CT Imaging suggesting old compression fractures
DNR/DNI
DVT prophylaxis�Eliquis
Regular diet
On December 04, 2023, I spoke extensively to the patient's daughter Jessica. All questions and concerns were answered to satisfaction.
On December 05, 2023, I spoke extensively to the patient's daughter Scar. All questions and concerns were answered to satisfaction.
On December 07, 2023, I spoke to the patient's daughter Jessica. All questions and concerns were answered to satisfaction.
More than 30 minutes spent in discharge including
Final examination of the patient
Summarizing hospital stay
Instructions for continuing care to all relevant caregivers
Preparation of discharge records, prescriptions, and referral forms
Total time spent (in minutes): 39
Anticipated Discharge: Today
Subjective/Interval History
-
Date of Service: December 08, 2023
Patient was seen and examined. She reported no new symptoms or complaints.
Objective Data
-
Vital Signs:
Vital Signs
Temp Pulse Resp BP Pulse Ox
98.2 F 70 18 118/57 95
12/08/23 07:39 12/08/23 08:08 12/08/23 08:08 12/08/23 07:39 12/08/23 08:08
I&O
12/07/23 12/08/23 12/09/23
06:59 06:59 06:59
Intake Total 1200 / 1200 240 / 240
Balance 1200 / 1200 240 / 240
--- NOTE | 2023-12-08 11:30 | W.DS.TRANS ---
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
-
Discharge Instructions:
Discharge Diagnosis/Procedures # Acute on chronic lower back pain
# History of compression fracture of T12/L2/L3
# History of degenerative lumbar disc disease
with bulges/neuroforaminal stenosis at L4-L5
with impingement of left L4 nerve root
# Elevated C- reactive protein -- needs further
workup outpatient
# Elevated Erythrocyte Sedimentation Rate --
need further workup outpatient
# New 1.4 cm left-sided nodule
# Red, Heme-Positive Stool Found on December 03,
2023 -- RESOLVED
# Vasovagal episode secondary to pain - RESOLVED
# Transient hypoxia - RESOLVED - likely
secondary to pain vs. atelectasis vs. less
likely pneumonia
# Hypokalemia - RESOLVED
# Paroxysmal atrial fibrillation
# Coronary Artery Disease with stent
# Chronic Heart Failure with Preserved Ejection
Fraction
# Chronic anemia due to chronic disease
# History of CVA
# Subclavian steal syndrome with 30 to 40%
blockage on the right
# Chronic Obstructive Disease on 2.5 L oxygen at
baseline
# Chronic respiratory failure with hypoxia
# History of Coronary Artery Disease
# Essential hypertension
# Gastroesophageal Reflux Disease
# Hyperlipidemia
# Chronic Kidney Disease Stage 3B
# Alzheimer's disease
# History of Mcnulty's palsy
# Anxiety/depression
# Hypoalbuminemia
# Ex-smoker
# History of hemorrhoids
Moderate diffuse coarsening of the interstitial
markings throughout both lungs which could be
interstitial pneumonia/bronchiolitis on CT
Imaging
Trace amount of pleural fluid within the
visualized inferior hemithoraces posteriorly on
CT Imaging.
Parenchymal opacity at the posterior lower lobes
of the lungs, left greater than right, on CT
imaging likely atelectasis but less likely
pneumonia
Peripherally calcified gallstone on CT imaging
Moderate to severe vascular calcification in
aorta on CT Imaging
Enlarged and lobulated uterus, compatible with
fibroid on CT Imaging
Moderate distention of the rectum with stool on
CT Imaging
Compression deformities of the lower thoracic
and lumbar spine on CT Imaging suggesting old
compression fractures
Diet As tolerated,Regular
Activity As tolerated
Other Services VN
Instructions:
Stand-Alone Forms:
Changes to Home Medications: Yes
Discharge Medications:
DC Medications w/original date entered in [employer]
memantine 10 mg tablet 10 mg PO BID Neurological Condition 12/13/21
sertraline 50 mg tablet 50 mg PO QPM Depression 12/13/21
donepezil 10 mg tablet 10 mg PO DAILY memory 05/26/22
cholecalciferol (vitamin D3) 25 mcg (1,000 unit) tablet (Vitamin D3) 25 mcg PO DAILY Supplement 10/14/22
montelukast 10 mg tablet (Singulair) 10 mg PO DAILY asthma 10/14/22
diltiazem HCl 240 mg capsule,extended release 24 hr 240 mg PO QPM Arrhythmia 06/20/23
atorvastatin 40 mg tablet 40 mg PO QPM High Cholesterol 09/10/23
budesonide-formoterol HFA 160 mcg-4.5 mcg/actuation aerosol inhaler (Symbicort) 2 puff inhalation R DAILY Lung/Breathing Issues 09/10/23
docusate sodium 100 mg capsule (Colace) 100 mg PO DAILY Gastrointestinal Issue 09/10/23
furosemide 40 mg tablet 40 mg PO DAILY Fluid Retention/Swelling 09/10/23
pantoprazole 40 mg tablet,delayed release 40 mg PO DAILY Gastrointestinal Issue 09/10/23
alprazolam 0.5 mg tablet 0.5 mg PO TID anxiety 12/02/23
apixaban 5 mg tablet (Eliquis) 5 mg PO BID Blood Clot Prevention/Tx 12/02/23
tiotropium bromide 18 mcg capsule with inhalation device (Spiriva with HandiHaler) 1 cap inhalation R DAILY Lung/Breathing Issues 12/02/23
tramadol 50 mg tablet 50 mg PO TID PRN moderate pain 12/02/23
lidocaine 4 % topical patch 1 patch topical DAILY Lower Back Pain #30 ea 12/08/23
polyethylene glycol 3350 17 gram oral powder packet (HealthyLax) 17 g PO BID #100 ea 12/08/23
sennosides 8.6 mg tablet (Senna Laxative) 17.2 mg (2 x 8.6 mg) PO HS #60 tabs 12/08/23
Home Medication Changes
Lidocaine, HealthyLax and Senna are all new medications
Pending Results: No
Total time spent discharging patient (in min): 39
[2023-12-08] MEDS: TYLENOL 650 MG PO (13:14)
[2023-12-08 13:17] VITALS: BP 103/50
--- NOTE | 2023-12-10 13:23 | CM ---
CM received call from Clarisa at [facility] that referral has not be received for home care services. CM sent referral via [facility]. CM update Clarisa via phone that referral has been sent.
--- NOTE | 2023-12-11 07:15 | W.DCSUMMARY ---
Discharge Summary
Discharge Data
Date of Admission: 12/02/23
Date of Discharge: 12/08/23
Total time spent discharging patient (in min): 39
-
Pending Results: No
Hospital Course
83 y/o female with past medical history paroxysmal atrial fibrillation on Eliquis, CAD with stent, chronic HFpEF, COPD on 2.5 L at baseline, C. difficile antigen positive, CVA, subclavian steal syndrome with 30 to 40% blockage on the right side,
essential hypertension, hyperlipidemia, GERD, CKD 3B, Alzheimer's disease, Mcnulyt's palsy, anxiety/depression, hypoalbuminemia, ex-smoker, hemorrhoids, arthritis/ambulatory dysfunction, compression fractures, presented with worsening chronic back pain
as well as an episode of sweatiness/clamminess and nausea prior to arrival and transient worsening of hypoxia (was down to 85% on her baseline home oxygen of 2.5 L). Patient was noted to have a history of chronic back pain has had multiple
compression fractures in the past.
Her sweatiness/clamminess and nausea was felt to be a vasovagal episode from her worsening pain. Patient's hypoxia resolved spontaneously. CT Abdomen/Pelvis was performed, showing, as per radiologist's report, 'IMPRESSION: There is no evidence for
retroperitoneal hematoma. There is no evidence for rectus hematoma. Trace amount of pleural fluid within the visualized inferior hemithoraces posteriorly. There is adjacent parenchymal opacity within the posterior lower lobes of the lungs, left
greater than right. Morphologic appearance is most suggestive of atelectasis, although pneumonia difficult to completely exclude. Peripherally calcified gallstone is present. No CT findings to suggest acute cholecystitis. Moderate to severe vascular
calcification with no evidence for abdominal aortic aneurysm. Enlarged and lobulated uterus, compatible with fibroid. Moderate distention of the rectum with stool, with no findings to suggest stercoral colitis. Compression deformities of the lower
thoracic and lumbar spine, with morphologic appearance suggesting that these represent old fractures. There is no convincing CT evidence for an acute fracture of the visualized spine.'
Inflammatory markers, erythrocyte sedimentation rate (ESR) and C-reactive protein (CRP) were ordered -- ESR was elevated at 50 and CRP was elevated at 32.70 -- and neurosurgery was consulted. Neurosurgery recommended, given patient's elevated
C-reactive protein, MRI of patient's thoracic and lumbar spine, both with and without contrast for each. MRI of patient's thoracic spine, showed, as per radiologist's report, 'IMPRESSION: No MR evidence for discitis or osteomyelitis. Changes of
degenerative disc disease in the visualized cervical spine. There appears to be cord compression and mild overall central canal stenosis at C3-4 and C4-5, with no gross evidence of myelopathic signal. Old compression deformity of T12. No evidence
for acute to subacute compression fracture. No evidence for disc protrusion or significant disc bulge in the thoracic spine, with no evidence for cord compression. In the posterior and medial left lung at the T7 level, 1.4 cm nodular focus of
intermediate T1-weighted signal. This could represent a rounded area of pneumonia or atelectasis, but a small neoplasm/cancer is possible. Further evaluation with CT of the chest is advised.'
Patient did have an episode of blood in her stools, but her hemoglobin remained stable, gastroenterology was consulted, and her Eliquis was okay to be continued. The likely source of bleeding was her hemorrhoids. She was noted to have large stool
burden and enema was ordered resulting in a large bowel movement. Patient's daughter did not want patient to have a colonoscopy.
MRI of patient's lumbar spine, showed, as per radiologist's report, 'IMPRESSION: Old compression fractures as described. No evidence for acute compression fracture. No MR evidence for discitis or osteomyelitis. Scoliosis with diffuse degenerative
changes of the lumbar spine. See above narrative for detailed findings at each level.'
Pulmonary was consulted especially in light of patient's thoracic MRI findings, a CT Chest without intravenous contrast was ordered, and showed, 'IMPRESSION: 1.3 cm soft tissue nodule in the medial left lower lobe. Neoplasm to be excluded. Further
evaluation/follow-up may be considered with PET/CT.' Pulmonary recommended patient continue her oxygen, try to get out of bed/activity and follow up with Dr. Jones; no lung biopsy to be done at this time given patient's advanced age and dementia
and could consider outpatient PET/CT to assess FDG avidity. Patient was stable for discharge.
Patient reported minimal to no pain and was stable for discharge.
Discharge Plan
-
Patient Disposition: Home with Home Care
Discharge Diagnosis/Procedures: # Acute on chronic lower back pain
# History of compression fracture of T12/L2/L3
# History of degenerative lumbar disc disease with bulges/neuroforaminal stenosis at L4-L5 with impingement of left L4 nerve root
# Elevated C- reactive protein -- needs further workup outpatient
# Elevated Erythrocyte Sedimentation Rate -- need further workup outpatient
# New 1.4 cm left-sided nodule
# Red, Heme-Positive Stool Found on December 04, 2023 -- RESOLVED
# Vasovagal episode secondary to pain - RESOLVED
# Transient hypoxia - RESOLVED - likely secondary to pain vs. atelectasis vs. less likely pneumonia
# Hypokalemia - RESOLVED
# Paroxysmal atrial fibrillation
# Coronary Artery Disease with stent
# Chronic Heart Failure with Preserved Ejection Fraction
# Chronic anemia due to chronic disease
# History of CVA
# Subclavian steal syndrome with 30 to 40% blockage on the right
# Chronic Obstructive Disease on 2.5 L oxygen at baseline
# Chronic respiratory failure with hypoxia
# History of Coronary Artery Disease
# Essential hypertension
# Gastroesophageal Reflux Disease
# Hyperlipidemia
# Chronic Kidney Disease Stage 3B
# Alzheimer's disease
# History of Mcnulty's palsy
# Anxiety/depression
# Hypoalbuminemia
# Ex-smoker
# History of hemorrhoids
Moderate diffuse coarsening of the interstitial markings throughout both lungs which could be interstitial pneumonia/bronchiolitis on CT Imaging
Trace amount of pleural fluid within the visualized inferior hemithoraces posteriorly on CT Imaging.
Parenchymal opacity at the posterior lower lobes of the lungs, left greater than right, on CT imaging likely atelectasis but less likely pneumonia
Peripherally calcified gallstone on CT imaging
Moderate to severe vascular calcification in aorta on CT Imaging
Enlarged and lobulated uterus, compatible with fibroid on CT Imaging
Moderate distention of the rectum with stool on CT Imaging
Compression deformities of the lower thoracic and lumbar spine on CT Imaging suggesting old compression fractures
Condition: Fair
Diet: As tolerated and Regular
Activity: As tolerated
Other Services: VN
Activity Restrictions/Additional Instructions:
Barrier ointment to marcela/coccyx bid.
Elevate heels off bed with pillow/s.
Pressure redistributing chair cushion (i.e. Air chair cushion).
Evaluate for air mattress.
Referrals:
Paul Jones MD [Active] - (4-6 weeks, PFT)
Tato Chung DO [Family Provider] - in less than 1 week
Prescriptions:
New
lidocaine 4 % Adhesive Patch,Medicated
1 patch topical DAILY Qty: 30 0RF
Rx Instructions:
Remove patch every evening.
polyethylene glycol 3350 [HealthyLax] 17 gram Powder In Packet
17 g PO BID Qty: 100 3RF
sennosides [Senna Laxative] 8.6 mg Tablet
17.2 mg PO HS Qty: 60 3RF
Continued
sertraline 50 MG tablet
50 mg PO QPM
memantine 10 MG tablet
10 mg PO BID
donepezil 10 mg Tablet
10 mg PO DAILY
montelukast [Singulair] 10 mg Tablet
10 mg PO DAILY
cholecalciferol (vitamin D3) [Vitamin D3] 25 mcg (1,000 unit) Tablet
25 mcg PO DAILY
diltiazem HCl 240 MG capsule,extended release 24hr
240 mg PO QPM
furosemide 40 mg Tablet
40 mg PO DAILY
docusate sodium [Colace] 100 mg Capsule
100 mg PO DAILY
budesonide-formoterol [Symbicort] 160-4.5 mcg/actuation Hfa Aerosol Inhaler
2 puff INHALATION R DAILY
atorvastatin 40 MG tablet
40 mg PO QPM
pantoprazole 40 MG tablet,delayed release (DR/EC)
40 mg PO DAILY
tramadol 50 mg tablet
50 mg PO TID PRN (Reason: moderate pain)
Patient Comments:
12/02/2023: last filled 11/28/23, 30 tabs for 10 days from [facility]
tiotropium bromide [Spiriva with HandiHaler] 18 mcg capsule, w/inhalation device
1 cap INHALATION R DAILY
Eliquis 5 mg tablet
5 mg PO BID
alprazolam 0.5 mg tablet
0.5 mg PO TID
Patient Comments:
12/02/2023: last filled 11/07/23, 120 tabs for 30 days from [facility]
Discharge Orders:
Discharge Patient (As Directed); Ordered 12/08/23
Ordered By: Nicko Ordonez
Discharge Date and Time
Discharge Date/Time: 12/08/23 14:17
Print Language: TURKISH
== END 2023-12-08 14:17 | disposition home health service (06) | DRG 552 ==
LOC: 4 WEST ACU 20:50
PROVIDERS: ADMITTING PHYSICIAN Hospitalist; ATTENDING PHYSICIAN Hospitalist; CONSULT PHYSICIAN Internal Medicine; CONSULT PHYSICIAN Internal Medicine Gastroenterology; EMERGENCY PHYSICIAN Emergency Medicine; FAMILY PHYSICIAN Family Medicine; OTHER PHYSICIAN Neurological Surgery
DX: M54.89 Other dorsalgia (principal); F02.84 Dementia in other diseases classified elsewhere, unspecified severity, with anxiety; F02.83 Dementia in other diseases classified elsewhere, unspecified severity, with mood disturbance; G45.8 Other transient cerebral ischemic attacks and related syndromes; I13.0 Hypertensive heart and chronic kidney disease with heart failure and stage 1 through stage 4 chronic kidney disease, or unspecified chronic kidney disease; I50.32 Chronic diastolic (congestive) heart failure; J96.11 Chronic respiratory failure with hypoxia; G89.29 Other chronic pain; G30.9 Alzheimer's disease, unspecified; I48.0 Paroxysmal atrial fibrillation; N18.32 Chronic kidney disease, stage 3b; R19.5 Other fecal abnormalities; E87.6 Hypokalemia; D63.8 Anemia in other chronic diseases classified elsewhere; K64.8 Other hemorrhoids
CPT/HCPCS: 71045; 71250; 72157; 72158; 74176; 80048; 80053; 81003; 81015; 83735; 84484; 85025; 85652; 86140; 87077; 87086; 87186; 87502; 87811; 93005; 94640; 96374; 97163; 97167; 97530; 99285; A9575

== ENCOUNTER 2024-04-24 21:16 | Inpatient (IN) | payer MEDICARE, BC, SELFPAY ==
[2024-04-24 17:35] VITALS: BP 124/82
--- NOTE | 2024-04-24 17:56 | ED.GENMED ---
History of Present Illness
<REMY Davies - Last Filed: 04/24/24 19:50>
General
Chief Complaint: Abdominal Pain
Source: patient
Time Seen by Provider: 04/24/24 17:45
Nursing documentation reviewed up to this point in time: agreed with
History of Present Illness
History of Present Illness:
Patient is a 84-year-old female with COPD, stroke, A-fib CHF on Eliquis hypertension hyperlipidemia brought by EMS. Family at bedside reports patient has an aide at home and she was last seen normal around 12 PM however at 4 PM when they attempted
to stand her up she was not able to stand. They noticed that she is leaning more to the right and they question a left-sided facial droop. Patient is confused at baseline however more confused than normal.
Patient is normally on oxygen with COPD. Daughter reports 2 days ago she had a choking episode. no fevers
Past History
<REMY Davies - Last Filed: 04/24/24 19:50>
Past History
ED Past Medical History: Arrthythmia (afib), CHF, COPD (Wears oxygen at 2.5 liters), CVA (Left sided weakness), HTN, Hypercholesterolemia, Psychiatric and Other (Gout, Alzheimer dementia)
ED Past Surgical History: Cardiac (Stents), Tonsilectomy and Other (cataracts)
Patient has exhibited threatening behavior?: No
PSI?: No
Social History
Tobacco: Former smoker (Quit smoking 12 years ago)
Alcohol: None
Drug: None
Personal:
Living: [facility]
Employment: Retired
Family History
Family History: Other (Noncontributory)
Review of Systems
<REMY Davies - Last Filed: 04/24/24 19:50>
Review of Systems
Allergies reviewed?: Yes
Unable to obtain full review of systems at this time due to: dementia
Other source history: family
All Other Systems: ROS reviewed and negative except as documented in HPI and ROS
Constitutional: Denies fever
Respiratory: Reports no symptoms
Cardiac: Reports no symptoms
ABD/GI: Reports abdominal pain (Patient had complained abdominal pain at home but now denies)
Skin: Reports no symptoms
Neurological: Reports other (increased confusion questionable left facial droop and leaning towards the right )
Psychiatric: Reports no symptoms
Phy Exam
<REMY Davies - Last Filed: 04/24/24 19:50>
General Physical Exam
General Presentation: no apparent distress
General age: appears stated age
General Skin: warm and dry
General Habitus: elderly
General Mental: confused
General Hydration: appears well hydrated
Cardiovascular Exam
Cardiovascular Exam: regular rate/rhythm, no murmur and normal peripheral pulses
Pulmonary Exam
Pulmonary Exam: lungs clear and no respiratory distress
Gastrointestinal Exam
Gastrointestinal Exam: non tender and soft
Neurological Exam
Neurological Exam: alert, no motor deficits, no sensory deficits, speech normal and other (able to follow commands and state name speech clear CRAMER )
Tiara Coma Scale
Eye Opening: Spontaneous
Verbal Response: Confused
Motor Response: Obeys Commands
GCS Total Score: 14
Musculoskeletal Exam
Musculoskeletal Exam: full ROM
Skin Exam
Skin Exam: normal color and warm/dry
Psychiatric Exam
Psychiatric Exam: normal mood/affect
Course
<REMY Davies - Last Filed: 04/24/24 19:50>
Orders/Labs/Results
Orders:
Orders
04/24/24 17:54
CT Head W/o Iv Contrast Urgent
Comment:
Reason For Exam: change in ms
04/24/24 17:55
Bedside Glucose- Treatment ONCE
Cardiac Monitoring- Treatment ONCE
IV Insert/Care/Rem.- Treatment PRN
Straight cath- Treatment ONCE
04/24/24 17:59
Complete Blood Count/With Diff Urgent
Comprehensive Metabolic Panel Urgent
Troponin I Urgent
04/24/24 18:03
UA Reflex to Culture [Urinalysis Reflex To Culture] Urgent
Date Specimen was Collected: 04/24/24
Time Specimen was Collected: 17:58
Urine Microscopic Reflex Cult Urgent
Urine Culture Urgent
DOC Source: U
Specimen Description:
Date Specimen was Collected: 04/24/24
Time Specimen was Collected: 17:58
04/24/24 18:04
Electrocardiogram (*1) Stat
Reason for Study: Other
Other Reason for Exam: chest pain
EKG- Treatment ONCE
04/24/24 19:06
CXR2 [CR Chest - 2 Views ] Urgent
Comment:
Reason For Exam: r/o pneumonia
04/24/24 19:23
Blood Culture Urgent
DOC Source: Blood/Venous
Specimen Description:
04/24/24 19:24
Lactic Acid Urgent
CefTRIAXone [Rocephin] 1,000 mg IV NOW STA
04/24/24 19:25
0.9% Sodium Chloride 500 ml [Nss] 500 ml IV BOLUS
Abnormal Lab Results
04/24/24 04/24/24 04/24/24
17:59 18:03 18:39
WBC 11.3 H 10^3/uL
(4.8-10.8)
RBC 4.07 L 10^6/uL
(4.20-5.40)
Hgb 11.3 L g/dL
(12.0-16.0)
Hct 33.0 L %
(37.0-47.0)
Absolute Neuts (auto) 8.6 H 10^3/uL
(1.4-6.5)
Absolute Monos (auto) 0.9 H 10^3/uL
(0.1-0.6)
Neutrophils % 76.5 H %
(42.2-75.2)
Lymphocytes % 13.1 L %
(20.5-51.1)
Carbon Dioxide 31 H mmol/L
(22-30)
BUN 27 H mg/dl
(7-17)
Creatinine 1.3 H mg/dL
(0.6-1.0)
Glucose 140 H mg/dl
(70-99)
Ur Occult Blood Reflex 4+ A
(Negative)
Urine Nitrite (Reflex) Positive A
(Negative)
Leukocyte Esterase Rfl 2+ A
(Negative)
Urine RBC 80-90 A /HPF
(0-2)
Urine WBC (Reflex) 30-40 A /HPF
(0-5)
Urine Bacteria (Reflex) Many A
(Negative)
POC Glucose 125 H mg/dl
(70-99)
04/24/24 17:59
04/24/24 17:59
Vital Signs
Initial and Last Documented VS:
Initial Vital Signs
Temp Pulse Resp BP Pulse Ox
99.1 F 88 16 124/82 95
04/24/24 17:35 04/24/24 17:35 04/24/24 17:35 04/24/24 17:35 04/24/24 17:35
Last Documented Vital Signs
Temp Pulse Resp BP Pulse Ox
99.1 F 88 16 121/108 95
04/24/24 17:35 04/24/24 17:35 04/24/24 17:35 04/24/24 18:22 04/24/24 18:23
Package Delivery Driver consulted with Physician
Package Delivery Driver consulted with physician?: Yes
Name of Physician Consulted: Israel
<Wan Wood, DO - Last Filed: 04/24/24 18:03>
Orders/Labs/Results
Orders:
Orders
04/24/24 17:54
CT Head W/o Iv Contrast Urgent
Comment:
Reason For Exam: change in ms
04/24/24 17:55
Bedside Glucose- Treatment ONCE
Cardiac Monitoring- Treatment ONCE
IV Insert/Care/Rem.- Treatment PRN
Straight cath- Treatment ONCE
04/24/24 17:59
Complete Blood Count/With Diff Urgent
Comprehensive Metabolic Panel Urgent
Troponin I Urgent
04/24/24 18:03
UA Reflex to Culture [Urinalysis Reflex To Culture] Urgent
Date Specimen was Collected: 04/24/24
Time Specimen was Collected: 17:58
Urine Microscopic Reflex Cult Urgent
Urine Culture Urgent
DOC Source: U
Specimen Description:
Date Specimen was Collected: 04/24/24
Time Specimen was Collected: 17:58
04/24/24 18:04
Electrocardiogram (*1) Stat
Reason for Study: Other
Other Reason for Exam: chest pain
EKG- Treatment ONCE
04/24/24 19:06
CXR2 [CR Chest - 2 Views ] Urgent
Comment:
Reason For Exam: r/o pneumonia
04/24/24 19:23
Blood Culture Urgent
DOC Source: Blood/Venous
Specimen Description:
04/24/24 19:24
Lactic Acid Urgent
CefTRIAXone [Rocephin] 1,000 mg IV NOW STA
04/24/24 19:25
0.9% Sodium Chloride 500 ml [Nss] 500 ml IV BOLUS
Abnormal Lab Results
04/24/24 04/24/24 04/24/24
17:59 18:03 18:39
WBC 11.3 H 10^3/uL
(4.8-10.8)
RBC 4.07 L 10^6/uL
(4.20-5.40)
Hgb 11.3 L g/dL
(12.0-16.0)
Hct 33.0 L %
(37.0-47.0)
Absolute Neuts (auto) 8.6 H 10^3/uL
(1.4-6.5)
Absolute Monos (auto) 0.9 H 10^3/uL
(0.1-0.6)
Neutrophils % 76.5 H %
(42.2-75.2)
Lymphocytes % 13.1 L %
(20.5-51.1)
Carbon Dioxide 31 H mmol/L
(22-30)
BUN 27 H mg/dl
(7-17)
Creatinine 1.3 H mg/dL
(0.6-1.0)
Glucose 140 H mg/dl
(70-99)
Ur Occult Blood Reflex 4+ A
(Negative)
Urine Nitrite (Reflex) Positive A
(Negative)
Leukocyte Esterase Rfl 2+ A
(Negative)
Urine RBC 80-90 A /HPF
(0-2)
Urine WBC (Reflex) 30-40 A /HPF
(0-5)
Urine Bacteria (Reflex) Many A
(Negative)
POC Glucose 125 H mg/dl
(70-99)
04/24/24 17:59
04/24/24 17:59
Vital Signs
Initial and Last Documented VS:
Initial Vital Signs
Temp Pulse Resp BP Pulse Ox
99.1 F 88 16 124/82 95
04/24/24 17:35 04/24/24 17:35 04/24/24 17:35 04/24/24 17:35 04/24/24 17:35
Last Documented Vital Signs
Temp Pulse Resp BP Pulse Ox
99.1 F 88 16 121/108 95
04/24/24 17:35 04/24/24 17:35 04/24/24 17:35 04/24/24 18:22 04/24/24 18:23
<REMY Davies - Last Filed: 04/24/24 19:50>
MDM/Problems Addressed
MDM/Problems Addressed:
Patient is an 84-year-old female on Eliquis for history A-fib with mild dementia brought by EMS for evaluation. Family reports patient was noted to be weak if she was not able to stand for the aide. Family also questioned if patient had left-sided
facial droop and was leaning to the right. Patient had complaint of abdominal pain prior to arrival. Patient presents awake alert she is more confused than normal as per family but is able to follow commands speech is clear and she is oriented to
name. She is aware that her daughters are here and stated each of them by name correctly. On exam she does not have any obvious facial droop she has full range of motion upper lower extremities . CT head negative. Urine does appear infected.
White count is minimally elevated at 11.3 temp is 99.1 hemoglobin stable 11.3 mild renal insufficiency however unchanged. Will check lactic culture will order antibiotics symptoms likely from UTI abdomen soft and nontender no acute distress.
<REMY Davies - Last Filed: 04/24/24 19:50>
*Radiology
Radiology exam reviewed: radiology read reviewed
*Pulse Oximetry
Patient hypoxic: no
*EKG
Interpretation: normal
Heart Rate: 87
Rate: normal
Rhythm: sinus
Ischemia: no ischemia
*Critical Care Note
Total Time (30-74mins, 75-104mins- exclusive of procedures): Not Applicable
ED Attending Note
<REMY Davies - Last Filed: 04/24/24 19:50>
-
Portions of this chart may have been created with voice recognition software.� Occasional wrong word or��sound alike� substitutions may have occurred due to the inherent limitations of voice recognition software.
<Wan Wil Israel, DO - Last Filed: 04/24/24 18:03>
ED Attending Note
Patient seen and examined by attending physician: Yes
I performed the substantive portion of visit, reviewed & personally made and approve the management plan that is documented in note by myself or COLEEN.: Yes
I performed a history and physical exam of patient and discussed management with resident, I reviewed resident's note and agree with documented findings and plan of care.: Yes
ED Attending Note:
I evaluated patient at bedside. The patient was last seen at her baseline at around 12 PM today there was some increase weakness around 4 PM. She is on Eliquis�she is not a TNK candidate and there are no clear deficits on examination. There is a
questionable facial droop but daughters cannot clarify if this is truly new or not. She has had a stroke in the past.
Discharge Plan
Departure
Prescriptions:
No Action
sertraline 50 MG tablet
50 mg PO QPM
memantine 10 MG tablet
10 mg PO BID
donepezil 10 mg Tablet
10 mg PO DAILY
montelukast [Singulair] 10 mg Tablet
10 mg PO DAILY
cholecalciferol (vitamin D3) [Vitamin D3] 25 mcg (1,000 unit) Tablet
25 mcg PO DAILY
diltiazem HCl 240 MG capsule,extended release 24hr
240 mg PO QPM
furosemide 40 mg Tablet
40 mg PO DAILY
docusate sodium [Colace] 100 mg Capsule
100 mg PO DAILY
budesonide-formoterol [Symbicort] 160-4.5 mcg/actuation Hfa Aerosol Inhaler
2 puff INHALATION R DAILY
atorvastatin 40 MG tablet
40 mg PO QPM
pantoprazole 40 MG tablet,delayed release (DR/EC)
40 mg PO DAILY
tramadol 50 mg tablet
50 mg PO TID PRN (Reason: moderate pain)
Patient Comments:
12/02/2023: last filled 11/28/23, 30 tabs for 10 days from [facility]
tiotropium bromide [Spiriva with HandiHaler] 18 mcg capsule, w/inhalation device
1 cap INHALATION R DAILY
Eliquis 5 mg tablet
5 mg PO BID
alprazolam 0.5 mg tablet
0.5 mg PO TID
Patient Comments:
12/02/2023: last filled 11/07/23, 120 tabs for 30 days from [facility]
lidocaine 4 % Adhesive Patch,Medicated
1 patch topical DAILY Qty: 30 0RF
Rx Instructions:
Remove patch every evening.
polyethylene glycol 3350 [HealthyLax] 17 gram Powder In Packet
17 g PO BID Qty: 100 3RF
sennosides [Senna Laxative] 8.6 mg Tablet
17.2 mg PO HS Qty: 60 3RF
Referrals:
Tato Chung DO [Family Provider] -
Interventions
Interventions:
*Risk Screen - Suicide Last Done: 04/24/24 17:35
*General Assessment Last Done: 04/24/24 17:35
*Neglect/Abuse Screening Last Done: 04/24/24 17:35
*ED COVID-19 Vaccine History Last Done: 04/24/24 18:32
NW-Zujxrl-Trgjwnpfcy Assessment Last Done: 04/24/24 18:32
Discharge Date and Time
Print Language: AZERI
[2024-04-24 18:05] LABS: % Basophils 0.9 % (0-2); % Eosinophils 0.8 % (0-6); % Immature Granulocytes 0.3 % (0-0.5); % Lymphocytes 13.1 % (20.5-51.1); % Monocytes 8.4 % (1.7-9.3); % Neutrophils 76.5 % (42.2-75.2); Absolute Basophils 0.1 10^3/uL (0-0.2); Absolute Eosinophils 0.1 10^3/uL (0-0.7); Absolute Lymphocytes 1.5 10^3/uL (1.2-3.4); Absolute Monocytes 0.9 10^3/uL (0.1-0.6); Absolute Neutrophils 8.6 10^3/uL (1.4-6.5); Hemoglobin 11.3 g/dL (12.0-16.0); Mean Corp Hgb Conc. 34.2 g/dL (33.0-37.0); Mean Corpuscular Hgb 27.8 pg (27.0-31.0); Mean Corpuscular Volume 81.1 fL (81.0-99.0); Mean Platelet Volume 9.6 fL (7.4-10.4); Nucleated Red Blood Cells % 0 %; Platelet Count 377 10^3/uL (130-400); Red Blood Cell Count 4.07 10^6/uL (4.20-5.40); Red Cell Dist. Width 13.7 % (11.5-14.5); White Blood Cell Count 11.3 10^3/uL (4.8-10.8)
[2024-04-24 18:22] VITALS: BP 121/108
[2024-04-24 18:24] LABS: Urine Albumin Trace (Neg - Trace); Urine Bilirubin Negative (Negative); Urine Character Very Cloudy (Clear); Urine Color Yellow; Urine Glucose Negative (Negative); Urine Ketone Negative (Negative); Urine Leukocyte 2+ (Negative); Urine Nitrite Positive (Negative); Urine Occult Blood 4+ (Negative); Urine Urobilinogen Negative (Neg - 1+)
[2024-04-24 18:25] LABS: ALT (SGPT) < 10 U/L (0-35); AST (SGOT) 21 U/L (14-36); Albumin 4.2 g/dl (3.5-5.0); Alkaline Phosphatase 118 U/L (38-126); Blood Urea Nitrogen 27 mg/dl (7-17); Calcium 9.4 mg/dl (8.4-10.2); Carbon Dioxide 31 mmol/L (22-30); Glucose 140 mg/dl (70-99); Total Bilirubin 0.5 mg/dl (0.2-1.3); Total Protein 7.1 g/dl (6.3-8.2)
[2024-04-24 18:34] LABS: Urine Red Blood Cell 80-90 /HPF (0-2)
[2024-04-24 18:35] LABS: Urine Bacteria Many (Negative); Urine White Cell 30-40 /HPF (0-5)
[2024-04-24 18:37] LABS: Chloride 100 mmol/L (98-107); Potassium 3.9 mmol/L (3.5-5.1); Sodium 140 mmol/L (135-145)
[2024-04-24 18:39] LABS: Troponin I < 0.012 ng/ml
[2024-04-24 18:59] LABS: Glucose - Point of Care 125 mg/dl (70-99)
[2024-04-24 20:01] VITALS: BP 139/50
--- NOTE | 2024-04-24 20:23 | HPS.HSE ---
Family Physician
-
Family Physician: Tato Chung
Chief Complaint
-
generalized weakness
History of Present Illness
84-year-old female with COPD, stroke, A-fib CHF on Eliquis hypertension hyperlipidemia brought by EMS with complaint of nausea and abdominal pain. At present she does not have any abdominal pain. Today she was very weak and was not able to stand
up 2 days ago she choked on her medications. Since then she has been having some cough for which she is getting Delsym as needed at night. Patient also complaining of runny nose. Denied fever, chills, chest pain, short of breath. Patient uses
2.5 L of oxygen at home. Patient denies any headache, dizziness, syncopal episode. Denied vomiting or diarrhea. Patient is incontinent of urine denies dysuria hematuria.
Positive urinalysis. Received a dose of ceftriaxone in the ER. Admitting for further management
Medical History
Past Medical History
Past Medical History: Reports Other
Additional Past Medical History:
Congestive heart failure
hypertension
COPD
Left subclavian artery stenosis
Carotid bilateral stenosis
Coronary artery disease
Ischemic cardiomyopathy
A-fib
Past Surgical History: Reports Other
Additional Past Surgical History:
Cardiac stent
Social History
Tobacco: Former Smoker
Alcohol: None
Drug: None
Living: With Family
Family History
Family History: Not pertinent
Allergies / Home Medications
Allergies reflects when Allergies were last updated in [facility].
Home Medications with original date entered in [facility]
Allergy/Medication List:
Allergies
Allergy/AdvReac Type Severity Reaction Status Date / Time
codeine Allergy Itching Verified 04/24/24 17:45
Iodinated Contrast Media Allergy Unknown Verified 04/24/24 17:45
iodine Allergy Unknown Verified 04/24/24 17:45
methylprednisolone Allergy Rash Verified 04/24/24 17:45
Penicillins Allergy Hives Verified 04/24/24 17:45
prednisone Allergy Unknown Verified 04/24/24 17:45
shellfish derived Allergy Swelling/an Verified 04/24/24 17:45
gioedema
Home Medications
memantine 10 mg tablet 10 mg PO BID Neurological Condition 12/13/21
sertraline 50 mg tablet 50 mg PO QPM Depression 12/13/21
donepezil 10 mg tablet 10 mg PO DAILY memory 05/26/22
montelukast 10 mg tablet (Singulair) 10 mg PO DAILY asthma 10/14/22
diltiazem HCl 240 mg capsule,extended release 24 hr 240 mg PO QPM Arrhythmia 06/20/23
atorvastatin 40 mg tablet 40 mg PO QPM High Cholesterol 09/10/23
budesonide-formoterol HFA 160 mcg-4.5 mcg/actuation aerosol inhaler (Symbicort) 2 puff inhalation R DAILY Lung/Breathing Issues 09/10/23
docusate sodium 100 mg capsule (Colace) 100 mg PO DAILY Gastrointestinal Issue 09/10/23
furosemide 40 mg tablet 40 mg PO DAILY Fluid Retention/Swelling 09/10/23
pantoprazole 40 mg tablet,delayed release 40 mg PO DAILY Gastrointestinal Issue 09/10/23
alprazolam 0.5 mg tablet 0.5 mg PO TID anxiety 12/02/23
apixaban 5 mg tablet (Eliquis) 5 mg PO BID Blood Clot Prevention/Tx 12/02/23
tiotropium bromide 18 mcg capsule with inhalation device (Spiriva with HandiHaler) 1 cap inhalation R DAILY Lung/Breathing Issues 12/02/23
albuterol sulfate 90 mcg/actuation aerosol inhaler (Ventolin HFA) 1 puff inhalation ONCE Lung/Breathing Issues 04/24/24
lisinopril 20 mg tablet 20 mg PO DAILY Blood Pressure 04/24/24
Review of Systems
-
Constitutional: Reports No Symptoms
EENT: Reports No Symptoms
Respiratory: Reports Cough
Cardiac: Reports No Symptoms
Abdomen/GI: Reports No Symptoms
: Reports No Symptoms
Musculoskeletal: Reports No Symptoms
Skin: Reports No Symptoms
Neurological: Reports No Symptoms
Endocrine: Reports No Symptoms
Hematologic/Lymphatic: Reports No Symptoms
Psych: Reports No Symptoms
Physical Exam
Vital Signs
Vital Signs
Temp Pulse Resp BP Pulse Ox
99.1 F 88 16 121/108 95
04/24/24 17:35 04/24/24 17:35 04/24/24 17:35 04/24/24 18:22 04/24/24 18:23
Physical Exam
General: Well Developed, Well Nourished and No Apparent Distress
HEENT: NormoCephalic, Moist mucous membranes and Atraumatic
Respiratory: Clear
Cardiac: S1/S2 and Regular Rhythm; No Murmur or Rub
GI: Soft, Non Tender, Non Distended and Normal Bowel Sounds; No Organomegaly
Rectal: Deferred by Provider
Musculoskeletal: No Clubbing, No Cyanosis and No Edema
Skin: No Rash
Neuro: Nonfocal/grossly intact
Psych: Calm
Laboratory Results
-
04/24/24 17:59
04/24/24 17:59
Laboratory Results
Total Bilirubin 0.5 mg/dl (0.2-1.3) 04/24/24 17:59
AST 21 U/L (14-36) 04/24/24 17:59
ALT < 10 U/L (0-35) 04/24/24 17:59
Alkaline Phosphatase 118 U/L (38-126) 04/24/24 17:59
Troponin I < 0.012 ng/ml 04/24/24 17:59
Data Reviewed
-
Diagnostic Radiology: Report Reviewed by me
CT Scan: Image Personally Visualized and interpreted
Lab Data: Labs Reviewed by me
Impression/Plan
-
# Generalized weakness likely from urinary tract infection
-PT/OT consult
-WBC 11.3
-Continue ceftriaxone
#cough/congestion likely viral
-Mucinex added
-chest x ray with Bandlike opacity projecting over the left lower lobe, similar to prior CT and is favored to represent atelectasis/scarring rather than pneumonia.Chronic T12 compression deformity.
-obtain COVID
# Anemia of chronic disease
-hemoglobin stable 11.3
-No active bleeding
-Continue to monitor
# Chronic kidney disease stage IIIb
-Creatinine 1.3
-Continue to monitor
# Chronic respiratory failure/COPD.
-She is on O2 dependent at home
-Patient uses 2.5 L all the time
-Continue supplemental oxygen to keep sat greater than 92
- nebs from home continued
#Paroxysmal atrial fibrillation
-Continue Eliquis
-Continue diltiazem
#CAD with stent
#Essential hypertension
-Blood pressure stable
-Lisinopril continued with hold parameters
#Gastroesophageal Reflux Disease
-Continue Protonix
#Hyperlipidemia
-Continue statin
#Alzheimer's disease/anxiety
-Continue donepezil, memantine
-Alprazolam continued
-Sertraline continued
# History of congestive heart failure
-Patient is not in exacerbation
-hold Lasix
DNR/DNI
DVT prophylaxis�Eliquis
Regular diet
--- NOTE | 2024-04-24 20:45 | W.PN.UPDATE ---
Update Note
Progress Note Update
This is an addendum to the H&P written by Nory Miller on 04/24/2024.
84-year-old female past medical history of paroxysmal atrial fibrillation on Eliquis, CAD, chronic HFpEF, COPD on 2.5 L at baseline, C. difficile, CVA, subclavian steal syndrome, hypertension, hyperlipidemia, GERD, CKD 3B,'s emergency, Mcnulty's palsy,
anxiety/depression, arthritis, ambulatory dysfunction, compression fractures, presenting for abdominal pain, cloudy urine, inability to stand and confusion as well as cough.
Check COVID. Urinalysis suggestive of UTI. CT head shows no acute findings and persistent prominent ventricular system suggesting normal pressure hydrocephalus. Metabolic encephalopathy secondary to UTI. Gentle IV fluids, hold Lasix, urine
culture pending, ceftriaxone.
[2024-04-24] MEDS: ROCEPHIN 1000 MG IV (20:58)
[2024-04-24] MEDS: NSS 500 IV (21:01)
[2024-04-24 21:24] LABS: Lactic Acid 0.7 mmol/L (0.7-2.0)
[2024-04-24 21:31] LABS: COVID-19 Antigen Negative (Negative)
[2024-04-24 22:30] VITALS: BP 139/67; BMI 26.7
[2024-04-24] MEDS: NSS 1000 IV (23:18)
[2024-04-24] MEDS: MUCINEX 1200 MG PO (23:18)
[2024-04-24] MEDS: XANAX 0.5 MG PO (23:19)
[2024-04-24 23:30] VITALS: BMI 26.7
[2024-04-25] VITALS (7 sets, daily range): BP systolic 114–139; BP diastolic 55–66; PULSE 78–82; O2SAT 96; BMI 26.4
--- NOTE | 2024-04-25 01:35 | PTCARENOTE ---
Receive pt from ER. Pt alert, oriented to self, confused to time and space. Pt pulled over to her bed from the stretcher. Pt oriented to the room, call horta within reach, bed alarm in place for pt safety. Low grade fever (T=100), AX=541/67, HR=91,
SpO2=97% on 2L NC. Pt on NSR on telemonitor. IVFs infusing as per order. Will continue to monitor the pt.
--- NOTE | 2024-04-25 07:33 | W.PN.HOSP.TC ---
Today's Communication/Plan
-
see bold
Assessment / Plan
Assessment / Plan
HPI: 84-year-old female with COPD, stroke, A-fib CHF on Eliquis hypertension hyperlipidemia brought by EMS with complaint of nausea and abdominal pain. At present she does not have any abdominal pain. Today she was very weak and was not able to
stand up 2 days ago she choked on her medications. Since then she has been having some cough for which she is getting Delsym as needed at night. Patient also complaining of runny nose. Denied fever, chills, chest pain, short of breath. Patient
uses 2.5 L of oxygen at home. Patient denies any headache, dizziness, syncopal episode. Denied vomiting or diarrhea. Patient is incontinent of urine denies dysuria hematuria.
#Acute urinary tract infection
Continue Rocephin, follow-up on urine cultures
#Generalized weakness
PT/OT
#Dementia, unknown type
#Dysphagia
Lives at home with daughter
SPL
#Anemia of chronic disease
Monitor hemoglobin
#Stage IIIb chronic kidney disease
Monitor creatinine
#Chronic hypoxic respiratory failure on 2.5 L at baseline
#COPD
Continue bronchodilators
#Paroxysmal atrial fibrillation
Continue Eliquis, diltiazem
#Essential hypertension
-Blood pressure stable
-Lisinopril continued with hold parameters
#Gastroesophageal Reflux Disease
-Continue Protonix
#Hyperlipidemia
-Continue statin
#Alzheimer's disease/anxiety
-Continue donepezil, memantine
-Alprazolam continued
-Sertraline continued
# History of congestive heart failure
-Patient is not in exacerbation
-hold Lasix
DVT prophylaxis�Eliquis
DNR
Updated daughter on phone 04/25
Total time spent to see the patient on the floor, examine the patient, review data and lab results, discuss treatment plan with patient, nursing staff around 51 minutes.
Physical Exam
General: Frail, elderly, no acute distress
HEENT: Normocephalic, Atraumatic, EOMI, MMM
Respiratory: Clear to Auscultation bilaterally
Cardiac: Normal S1/S2, Regular Rate and Rhythm
GI: Soft, Nontender, Nondistended, Normal Bowel Sounds
Extremities: No Clubbing, Cyanosis, or Edema
Neuro: Nonfocal/Grossly Intact
Psych: Calm, Cooperative
Anticipated Discharge: 24 - 48 hours
Subjective/Interval History
-
Date of Service: April 25, 2024
Patient had a choking episode this morning. She reports feeling tired and weak. No coughing, no nausea, no vomiting. No fever.
Objective Data
-
Labs:
Laboratory Results
04/25/24
06:38
WBC Pending
Hgb Pending
Hct Pending
Plt Count Pending
Sodium Pending
Potassium Pending
Chloride Pending
Carbon Dioxide Pending
BUN Pending
Creatinine Pending
Glucose Pending
Calcium Pending
Vital Signs:
Vital Signs
Temp Pulse Resp BP Pulse Ox
99.6 F 87 18 139/66 98
04/25/24 03:18 04/25/24 03:18 04/25/24 03:18 04/25/24 03:18 04/25/24 03:18
I&O
04/24/24 04/25/24 04/26/24
06:59 06:59 06:59
Intake Total 700 / 700
Balance 700 / 700
[2024-04-25] MEDS: SYMBICORT 160/4.5 MCG INHALER 2 PUFF INH (07:40)
[2024-04-25] MEDS: SPIRIVA RESPIMAT 2.5 MCG 2 PUFF INH (07:40)
[2024-04-25 08:08] LABS: Hematocrit 27.6 % (37.0-47.0); Hemoglobin 9.3 g/dL (12.0-16.0); Mean Corp Hgb Conc. 33.7 g/dL (33.0-37.0); Mean Corpuscular Hgb 27.8 pg (27.0-31.0); Mean Corpuscular Volume 82.4 fL (81.0-99.0); Mean Platelet Volume 9.8 fL (7.4-10.4); Platelet Count 289 10^3/uL (130-400); Red Blood Cell Count 3.35 10^6/uL (4.20-5.40); Red Cell Dist. Width 13.5 % (11.5-14.5); White Blood Cell Count 7.6 10^3/uL (4.8-10.8)
[2024-04-25] MEDS: PROTONIX 40 MG PO (08:58)
[2024-04-25] MEDS: NAMENDA 10 MG PO ×2 (08:58→19:48)
[2024-04-25] MEDS: MUCINEX PO ×3 (08:58→19:47)
[2024-04-25] MEDS: XANAX 0.5 MG PO ×3 (08:58→19:48)
[2024-04-25] MEDS: ARICEPT 10 MG PO (08:59)
[2024-04-25] MEDS: ELIQUIS 5 MG PO ×2 (08:59→19:47)
[2024-04-25] MEDS: ZESTRIL 20 MG PO (08:59)
[2024-04-25] MEDS: COLACE 100 MG PO (08:59)
[2024-04-25] MEDS: SINGULAIR 10 MG PO (08:59)
[2024-04-25 09:55] LABS: Blood Urea Nitrogen 21 mg/dl (7-17); Calcium 8.5 mg/dl (8.4-10.2); Carbon Dioxide 30 mmol/L (22-30); Chloride 103 mmol/L (98-107); Estimated Creatinine Clearance 26 ml/min; Glucose 87 mg/dl (70-99); Potassium 3.3 mmol/L (3.5-5.1); Sodium 137 mmol/L (135-145)
--- NOTE | 2024-04-25 14:41 | CM ---
met with patient and called daughter/sami haynes.daughter lives with patient in house with 2-3 heath,her bed and bath is on the first floor.she uses a walker to ambulate,needs A with her adl's.patient has a monitor and storage bin tender saturday to saturday from 8am to 5pm. her pcp i
dr kannan dubose and she uses [facility] in [place].
pt has had vn through [facility]
IP rehab at [facility] and [facility].
pMH: dementia,copd on 2.5 liters nc o2 through [facility],stroke,htn,afib on eliquis.
patient is adm with uti on iv rocephin,hold lasix,urine cx pending.daughter does not want patient to go to ip rehab.she prefers patient to dc home with [employer] and [facility]. left [facility] for [facility].
[2024-04-25] MEDS: KLOR-CON 20 MEQ PO (15:30)
--- NOTE | 2024-04-25 16:03 | PTOTSP ---
SPEECH THERAPY SWALLOW EVALUATION:
Patient exhibits clinical signs of oropharyngeal dysphagia, likely chronic related to dementia (per daughter report), COPD, CVA, GERD. Patient with history of VSE earlier this year 09/26/2023, which identified mild-moderate oral and mild pharyngeal
dysphagia. Patient with report of coughing with thin liquids via straw and with medications with liquid. CXR indicating atelectasis rather than pneumonia at this time. Respiratory status at baseline level of 2.5L O2. Patient remains at risk for
aspiration given confusion and dysphagia risk factors. Recommend IDDSI Level 6 Soft and Bite Size diet, thin liquids. Medications crushed in puree if medically cleared to do so. Aspiration precautions includin:1 assist/100% supervision; NO
STRAWS; Small single sips/bites; Slow rate of intake; Upright positioning; Remain upright 30 minutes after eating/drinking; Reflux precautions; Avoid mixed consistencies; Oral care 3x/day; Only feed when awake/alert; Monitor for signs of aspiration
and d/c oral diet if any decline in mental or respiratory status. Speech therapy to follow, assess diet tolerance and modify as appropriate, monitor CXR and labs and determine indication for VSE, continue to provide patient/family education
regarding aspiration risks/precautions, and provide continued diagnostic swallow therapy as appropriate. Consider GI consult given signs of esophageal dysphagia including frequent eructation in patient with GERD.
RECOMMEND:
1) IDDSI Level 6 Soft and Bite Size diet, thin liquids
2) Medications crushed in puree if medically cleared to do so
3) Aspiration precautions includin:1 assist/100% supervision; NO STRAWS; Small single sips/bites; Slow rate of intake; Upright positioning; Remain upright 30 minutes after eating/drinking; Reflux precautions; Avoid mixed consistencies; Oral care
3x/day; Only feed when awake/alert; Monitor for signs of aspiration and d/c oral diet if any decline in mental or respiratory status
4) Consider GI consult
5) Speech therapy to follow, assess diet tolerance and modify as appropriate, monitor CXR and labs and determine indication for VSE
[2024-04-25] MEDS: CARDIZEM CD 240 MG PO (17:22)
[2024-04-25] MEDS: LIPITOR 40 MG PO (17:22)
[2024-04-25] MEDS: ZOLOFT 50 MG PO (17:23)
[2024-04-25] MEDS: ROCEPHIN 1000 MG IV (19:48)
[2024-04-25] MEDS: STERILE WATER FOR INJECTION 10 ML IV (19:48)
[2024-04-26 03:34] VITALS: BP 111/62
[2024-04-26 06:00] VITALS: BMI 26.8
[2024-04-26 07:18] LABS: Blood Urea Nitrogen 17 mg/dl (7-17); Calcium 9.1 mg/dl (8.4-10.2); Carbon Dioxide 28 mmol/L (22-30); Chloride 102 mmol/L (98-107); Estimated Creatinine Clearance 28 ml/min; Glucose 88 mg/dl (70-99); Potassium 3.5 mmol/L (3.5-5.1); Sodium 138 mmol/L (135-145); eGFR 44.36
[2024-04-26] MEDS: SPIRIVA RESPIMAT 2.5 MCG 2 PUFF INH (07:19)
[2024-04-26] MEDS: SYMBICORT 160/4.5 MCG INHALER 2 PUFF INH (07:19)
[2024-04-26 07:24] LABS: Hematocrit 28.7 % (37.0-47.0); Hemoglobin 9.8 g/dL (12.0-16.0); Mean Corp Hgb Conc. 34.1 g/dL (33.0-37.0); Mean Corpuscular Hgb 27.5 pg (27.0-31.0); Mean Corpuscular Volume 80.6 fL (81.0-99.0); Mean Platelet Volume 9.9 fL (7.4-10.4); Platelet Count 315 10^3/uL (130-400); Red Blood Cell Count 3.56 10^6/uL (4.20-5.40); Red Cell Dist. Width 13.2 % (11.5-14.5); White Blood Cell Count 8.5 10^3/uL (4.8-10.8)
[2024-04-26 07:55] VITALS: BP 149/63
[2024-04-26] MEDS: SINGULAIR 10 MG PO (08:21)
[2024-04-26] MEDS: MUCINEX PO (08:21)
[2024-04-26] MEDS: ELIQUIS 5 MG PO (08:22)
[2024-04-26] MEDS: COLACE 100 MG PO (08:22)
[2024-04-26] MEDS: XANAX 0.5 MG PO (08:22)
[2024-04-26] MEDS: ARICEPT 10 MG PO (08:22)
[2024-04-26] MEDS: PROTONIX 40 MG PO (08:22)
[2024-04-26] MEDS: ZESTRIL 20 MG PO (08:22)
[2024-04-26] MEDS: NAMENDA 10 MG PO (08:22)
--- NOTE | 2024-04-26 08:23 | W.PN.HOSP.TC ---
Today's Communication/Plan
-
Discharge home today
Assessment / Plan
Assessment / Plan
HPI: 84-year-old female with COPD, stroke, A-fib CHF on Eliquis hypertension hyperlipidemia brought by EMS with complaint of nausea and abdominal pain. At present she does not have any abdominal pain. Today she was very weak and was not able to
stand up 2 days ago she choked on her medications. Since then she has been having some cough for which she is getting Delsym as needed at night. Patient also complaining of runny nose. Denied fever, chills, chest pain, short of breath. Patient
uses 2.5 L of oxygen at home. Patient denies any headache, dizziness, syncopal episode. Denied vomiting or diarrhea. Patient is incontinent of urine denies dysuria hematuria.
#Acute urinary tract infection
Urine cultures growing out pansensitive E. coli
Has received 2 doses of IV Rocephin, will discharge on Keflex to complete a 5-day course
Follow-up with PCP in 1 week
#Generalized weakness
PT/OT rec SNF, dtr declines
CM to arrange for home care
#Dementia, unknown type
#Dysphagia
Lives at home with daughter
SPL recommends soft/bite-size diet, meds crushed
#Anemia of chronic disease
Monitor hemoglobin
#Stage IIIb chronic kidney disease
Monitor creatinine
#Chronic hypoxic respiratory failure on 2.5 L at baseline
#COPD
Continue bronchodilators
#Paroxysmal atrial fibrillation
Continue Eliquis, diltiazem
#Essential hypertension
-Blood pressure stable
-Lisinopril continued with hold parameters
#Gastroesophageal Reflux Disease
-Continue Protonix
#Hyperlipidemia
-Continue statin
#Alzheimer's disease/anxiety
-Continue donepezil, memantine
-Alprazolam continued
-Sertraline continued
# History of congestive heart failure
-Patient is not in exacerbation
-hold Lasix
DVT prophylaxis�Eliquis
DNR
Updated daughter on phone 04/26
Physical Exam
General: Frail, elderly, no acute distress
HEENT: Normocephalic, Atraumatic, EOMI, MMM
Respiratory: Clear to Auscultation bilaterally
Cardiac: Normal S1/S2, Regular Rate and Rhythm
GI: Soft, Nontender, Nondistended, Normal Bowel Sounds
Extremities: No Clubbing, Cyanosis, or Edema
Neuro: Pleasantly confused
Psych: Calm, Cooperative
Anticipated Discharge: Today
Subjective/Interval History
-
Date of Service: April 26, 2024
Patient reports weakness has resolved. No fever, no vomiting.
Objective Data
-
Labs:
Laboratory Results
04/26/24
05:56
WBC 8.5
Hgb 9.8 L
Hct 28.7 L
Plt Count 315
Sodium 138
Potassium 3.5
Chloride 102
Carbon Dioxide 28
BUN 17
Creatinine 1.2 H
Glucose 88
Calcium 9.1
Vital Signs:
Vital Signs
Temp Pulse Resp BP Pulse Ox
98.9 F 75 16 159/62 95
04/26/24 03:34 04/26/24 08:22 04/26/24 07:22 04/26/24 08:22 04/26/24 07:22
I&O
04/25/24 04/26/24 04/27/24
06:59 06:59 06:59
Intake Total 700 / 700 510 / 510
Balance 700 / 700 510 / 510
--- NOTE | 2024-04-26 10:38 | W.DCSUMMARY ---
Discharge Summary
Discharge Data
Date of Admission: 04/24/24
Date of Discharge: 04/26/24
-
Pending Results: No
Hospital Course
Discharge diagnosis:
Acute urinary tract infection
Generalized weakness
Alzheimer's dementia
Dysphagia
Anemia of chronic disease
Stage IIIb chronic kidney disease
Chronic hypoxic respiratory failure on 2.5 liters at baseline
Paroxysmal atrial fibrillation on Eliquis
Benign essential hypertension
Gastroesophageal reflux disease
History of congestive heart failure
Hospital course:
84-year-old female with a past medical history of Alzheimer's dementia, atrial fibrillation on Eliquis, chronic kidney disease, hypertension, CHF, and GERD was admitted for generalized weakness due to an acute urinary tract infection.
Patient was treated with IV Rocephin. Urine cultures grew out E. coli, pansensitive. She was transitioned to Keflex to complete a 5-day course.
Patient has Alzheimer's dementia, and dysphagia. She was seen in conjunction with speech pathology, who recommended a soft/bite-size diet with thin liquids. She needs to take her medications crushed in applesauce. Patient tolerated her diet.
Patient was seen in conjunction with PT for her weakness, who recommended short-term rehab. Daughter declines. She is set up with home PT, OT, SPL, visiting nurses. She is medically stable for discharge. She needs to follow-up with her primary
care doctor in 1 week.
Disposition: Home with home care
Discharge planning: Required 40 minutes
Discharge Plan
-
Patient Disposition: Home with Home Care
Discharge Diagnosis/Procedures: Acute urinary tract infection, weakness, dysphagia, dementia
Condition: Fair
Diet: Low Fat and Low Cholesterol
Additional Diets: Soft, bite-size diet
Activity: As tolerated
Other Services: VN, PT and ST
Activity Restrictions/Additional Instructions:
Soft and Bite Size diet, thin liquids. Medications crushed in puree. NO STRAWS. Aspiration precautions: 1:1 assist; 100% supervision; Monitor for signs of aspiration; Upright positioning and remain upright 30 minutes after eating/drinking.
Referrals:
Tato Chung DO [Family Provider] - in less than 1 week
Prescriptions:
New
cephalexin 500 mg tablet
500 mg PO TID 3 Days Qty: 9 0RF
Continued
sertraline 50 MG tablet
50 mg PO QPM
memantine 10 MG tablet
10 mg PO BID
donepezil 10 mg Tablet
10 mg PO DAILY
montelukast [Singulair] 10 mg Tablet
10 mg PO DAILY
diltiazem HCl 240 MG capsule,extended release 24hr
240 mg PO QPM
furosemide 40 mg Tablet
40 mg PO DAILY
docusate sodium [Colace] 100 mg Capsule
100 mg PO DAILY
budesonide-formoterol [Symbicort] 160-4.5 mcg/actuation Hfa Aerosol Inhaler
2 puff INHALATION R DAILY
atorvastatin 40 MG tablet
40 mg PO QPM
pantoprazole 40 MG tablet,delayed release (DR/EC)
40 mg PO DAILY
tiotropium bromide [Spiriva with HandiHaler] 18 mcg capsule, w/inhalation device
1 cap INHALATION R DAILY
Eliquis 5 mg tablet
5 mg PO BID
alprazolam 0.5 mg tablet
0.5 mg PO TID
Patient Comments:
12/02/2023: last filled 11/07/23, 120 tabs for 30 days from [facility]
lisinopril 20 mg Tablet
20 mg PO DAILY
albuterol sulfate [Ventolin HFA] 90 mcg/actuation Hfa Aerosol Inhaler
1 puff INHALATION ONCE
Discharge Orders:
Discharge Patient (As Directed); Ordered 04/26/24
Ordered By: Isaac Gonzalez
Discharge Date and Time
Print Language: TOGOLESE
[2024-04-26 11:00] VITALS: BP 130/60
[2024-04-26] MEDS: KEFLEX 250 MG/5 ML 500 MG PO (11:07)
--- NOTE | 2024-04-26 11:38 | CM ---
patient is stable for dc home today.spoke with daughter dallas and amb transport arranged for 2pm.referral sent to [facility] for vn,speech,pt and ot.daughter gave verbal permission to sign medicare letter.plan dc home with hcs.
--- NOTE | 2024-04-26 15:34 | CM ---
spoke with daughter dallas,referral sent via [facility] to [facility] for vn.pt.ot and speech.ambulance transport scheduled for 2pm.imm letter signed.
[2024-04-26 15:45] VITALS: BP 135/62
== END 2024-04-26 16:56 | disposition home health service (06) | DRG 690 ==
LOC: 4 EAST ACU 21:16
PROVIDERS: Nurse Practitioner; Registered Nurse; ADMITTING PHYSICIAN Hospitalist; ATTENDING PHYSICIAN Family Medicine; EMERGENCY PHYSICIAN Emergency Medicine; FAMILY PHYSICIAN Family Medicine
DX: N39.0 Urinary tract infection, site not specified (principal); F02.84 Dementia in other diseases classified elsewhere, unspecified severity, with anxiety; I13.0 Hypertensive heart and chronic kidney disease with heart failure and stage 1 through stage 4 chronic kidney disease, or unspecified chronic kidney disease; J96.11 Chronic respiratory failure with hypoxia; B96.20 Unspecified Escherichia coli [E. coli] as the cause of diseases classified elsewhere; R53.1 Weakness; G30.9 Alzheimer's disease, unspecified; R13.10 Dysphagia, unspecified; D63.8 Anemia in other chronic diseases classified elsewhere; N18.32 Chronic kidney disease, stage 3b; I48.0 Paroxysmal atrial fibrillation; K21.9 Gastro-esophageal reflux disease without esophagitis; I50.9 Heart failure, unspecified; Z79.01 Long term (current) use of anticoagulants
CPT/HCPCS: 51701; 70450; 71046; 80048; 80053; 81003; 81015; 82962; 83605; 84484; 85025; 85027; 87040; 87077; 87086; 87186; 87811; 92610; 93005; 94640; 96361; 96374; 97163; 97167; 99285

== ENCOUNTER 2024-07-14 15:36 | Emergency (ER) | payer MEDICARE, BC, SELFPAY ==
[2024-07-14] VITALS (11 sets, daily range): BP systolic 129–162; BP diastolic 36–55; BMI 23.4
[2024-07-14 16:17] LABS: % Basophils 0.6 % (0-2); % Eosinophils 1.3 % (0-6); % Immature Granulocytes 0.3 % (0-0.5); % Monocytes 5.8 % (1.7-9.3); Absolute Basophils 0.1 10^3/uL (0-0.2); Absolute Eosinophils 0.2 10^3/uL (0-0.7); Absolute Lymphocytes 1.5 10^3/uL (1.2-3.4); Absolute Monocytes 0.7 10^3/uL (0.1-0.6); Absolute Neutrophils 10.1 10^3/uL (1.4-6.5); Hematocrit 30.4 % (37.0-47.0); Hemoglobin 10.3 g/dL (12.0-16.0); Mean Corp Hgb Conc. 33.9 g/dL (33.0-37.0); Mean Corpuscular Hgb 27.2 pg (27.0-31.0); Mean Corpuscular Volume 80.2 fL (81.0-99.0); Mean Platelet Volume 9.5 fL (7.4-10.4); Nucleated Red Blood Cells % 0 %; Platelet Count 353 10^3/uL (130-400); Red Blood Cell Count 3.79 10^6/uL (4.20-5.40); Red Cell Dist. Width 13.5 % (11.5-14.5); White Blood Cell Count 12.7 10^3/uL (4.8-10.8)
[2024-07-14 16:31] LABS: ALT (SGPT) 12 U/L (0-35); AST (SGOT) 17 U/L (14-36); Albumin 3.7 g/dl (3.5-5.0); Alkaline Phosphatase 102 U/L (38-126); Blood Urea Nitrogen 25 mg/dl (7-17); Calcium 8.8 mg/dl (8.4-10.2); Carbon Dioxide 29 mmol/L (22-30); Chloride 103 mmol/L (98-107); Estimated Creatinine Clearance 26 ml/min; Glucose 106 mg/dl (70-99); Potassium 3.7 mmol/L (3.5-5.1); Sodium 143 mmol/L (135-145); Total Bilirubin 0.2 mg/dl (0.2-1.3); Total Protein 6.4 g/dl (6.3-8.2); eGFR 36.87
[2024-07-14 16:47] LABS: Urine Albumin Negative (Neg - Trace); Urine Bilirubin Negative (Negative); Urine Character Clear (Clear); Urine Color Yellow; Urine Glucose Negative (Negative); Urine Ketone Negative (Negative); Urine Leukocyte Trace (Negative); Urine Nitrite Negative (Negative); Urine Occult Blood Negative (Negative); Urine Urobilinogen Negative (Neg - 1+)
[2024-07-14 16:55] LABS: Urine Squamous Cell 0-2 /LPF (Few)
[2024-07-14 16:56] LABS: Urine Bacteria Moderate (Negative); Urine Red Blood Cell 0-2 /HPF (0-2)
[2024-07-14 17:02] LABS: Lactic Acid 2.1 mmol/L (0.7-2.0)
[2024-07-14 17:44] LABS: Troponin I < 0.012 ng/ml
[2024-07-14 19:23] LABS: Lactic Acid 0.9 mmol/L (0.7-2.0)
[2024-07-14] MEDS: XANAX 0.5 MG PO (20:14)
--- NOTE | 2024-07-14 20:18 | ED.GENMED ---
History of Present Illness
General
Chief Complaint: Blood Pressure Problem
Source: patient, family and ambulance crew
Exam Limitations: none
Time Seen by Provider: 07/14/24 15:54
Nursing documentation reviewed up to this point in time: agreed with
History of Present Illness
History of Present Illness:
84-year-old female presents emergency room complaining of a low blood pressure, and a near syncope episode. She was not feeling well, and then her blood pressure and pulse dropped.
Past History
Past History
ED Past Medical History: Arrthythmia (afib), CHF, COPD (Wears oxygen at 2.5 liters), CVA (Left sided weakness), HTN, Hypercholesterolemia, Psychiatric and Other (Gout, Alzheimer dementia)
ED Past Surgical History: Cardiac (Stents), Tonsilectomy and Other (cataracts)
Patient has exhibited threatening behavior?: No
PSI?: No
Social History
Tobacco: Former smoker (Quit smoking 12 years ago)
Alcohol: None
Drug: None
Personal:
Living: penitentiary
Employment: Retired
Family History
Family History: Other (Noncontributory)
Review of Systems
Review of Systems
Allergies reviewed?: Yes
All Other Systems: Not applicable
Constitutional: Reports no symptoms
EENT: Reports no symptoms
Respiratory: Reports no symptoms
Cardiac: Reports syncope
ABD/GI: Reports no symptoms
: Reports no symptoms
Musculoskeletal: Reports no symptoms
Skin: Reports no symptoms
Neurological: Reports no symptoms
Endocrine: Reports no symptoms
Hematologic/Lymphatic: Reports no symptoms
Psychiatric: Reports no symptoms
Phy Exam
Physical Exam
Physical Exam:
Physical Exam
General: no apparent distress, not acutely ill
Neck: supple. no meningeal signs. normal posterior pharynx
Heart: s1/s2 regular rate and rhythm, no murmur. equal radial
pulses.
HEENT: Pupils equal round reactive to light, EOMI
Lungs: no acute respiratory distress. clear bilaterally
Abdomen: normal bowel sounds. not tender. no CVAT
Neuro: alert and oriented. no focal neurological deficits cranial nerves II through XII intact
Skin: no rash
Psychiatric: well kept. interactive and cooperative
Extremities: no edema. no calf tenderness. negative homans. good distal pulses
Course
Orders/Labs/Results
Orders:
Orders
07/14/24 15:51
Electrocardiogram (*1) Urgent
Reason for Study: Fatigue / Weakness
EKG- Treatment ONCE
07/14/24 16:10
Complete Blood Count/With Diff Urgent
Comprehensive Metabolic Panel Urgent
07/14/24 16:20
Straight cath- Treatment ONCE
07/14/24 16:35
Lactic Acid Q4H
Comment: CANCEL 2nd LACTIC ACID IF 1st LACTIC ACID IS LESS THAN 2
Urinalysis Reflex To Culture Urgent
Date Specimen was Collected: 07/14/24
Time Specimen was Collected: 16:22
Urine Microscopic Reflex Cult Urgent
Urine Culture Urgent
DOC Source: U
Specimen Description:
Date Specimen was Collected: 07/14/24
Time Specimen was Collected: 16:22
07/14/24 17:13
Troponin I Urgent
07/14/24 17:19
CR Chest - 2 Views Urgent
Comment:
Reason For Exam: hypotension, lethargy
07/14/24 19:03
Lactic Acid Q4H
Comment: CANCEL 2nd LACTIC ACID IF 1st LACTIC ACID IS LESS THAN 2
07/14/24 20:11
Alprazolam [Xanax] 0.5 mg .ROUTE .STK-MED ONE
07/14/24 20:12
Alprazolam [Xanax] 0.5 mg PO NOW STA
Abnormal Lab Results
07/14/24 07/14/24
16:10 16:35
WBC 12.7 H 10^3/uL
(4.8-10.8)
RBC 3.79 L 10^6/uL
(4.20-5.40)
Hgb 10.3 L g/dL
(12.0-16.0)
Hct 30.4 L %
(37.0-47.0)
MCV 80.2 L fL
(81.0-99.0)
Absolute Neuts (auto) 10.1 H 10^3/uL
(1.4-6.5)
Absolute Monos (auto) 0.7 H 10^3/uL
(0.1-0.6)
Neutrophils % 80.0 H %
(42.2-75.2)
Lymphocytes % 12.0 L %
(20.5-51.1)
BUN 25 H mg/dl
(7-17)
Creatinine 1.4 H mg/dL
(0.6-1.0)
Glucose 106 H mg/dl
(70-99)
Lactic Acid 2.1 H mmol/L
(0.7-2.0)
Leukocyte Esterase Rfl Trace A
(Negative)
Urine Bacteria (Reflex) Moderate A
(Negative)
07/14/24 16:10
07/14/24 16:10
Vital Signs
Initial and Last Documented VS:
Initial Vital Signs
Temp Pulse Resp BP Pulse Ox
97.5 F 65 19 129/39 84
07/14/24 15:45 07/14/24 15:45 07/14/24 15:45 07/14/24 15:45 07/14/24 15:45
Last Documented Vital Signs
Temp Pulse Resp BP Pulse Ox
97.5 F 63 24 162/50 97
07/14/24 15:45 07/14/24 20:45 07/14/24 20:45 07/14/24 20:30 07/14/24 20:45
MDM/Problems Addressed
Differential Diagnosis Includes:
Dysrhythmia, sepsis, pneumonia, UTI
MDM/Problems Addressed:
84-year-old female with suspected vasovagal syncope episode. Asymptomatic in ED. Stable for discharge. Patient seems to have chronic low diastolic pressure.
Chronic conditions affecting care: Arrhythmia
*Radiology
Radiology exam reviewed: radiology read reviewed (Chest x-ray no acute findings)
*Pulse Oximetry
Patient hypoxic: no
*EKG
Interpreted by ED Provider?: Yes
EKG Intrepretation Date: 07/14/24
EKG Intrepretation Time: 15:52
Interpretation: abnormal
Comparison EKG: changes noted
Heart Rate: 64
Rate: normal
Rhythm: sinus
Blunt: normal axis
Interval: normal QT interval and first degree heart block
QRS Pattern: normal QRS
Ischemia: no ischemia
*Bureau Chief Interpretation
Rate: normal
Interpretation: normal
Heart Rate: 65
Rhythm: sinus
*Critical Care Note
Total Time (30-74mins, 75-104mins- exclusive of procedures): Not Applicable
Patient Management
Social determinants of health affecting care: Living situation
Escalation/DeEscalation of care consider admission/obs:
admit not indicated
ED Attending Note
-
Portions of this chart may have been created with voice recognition software.� Occasional wrong word or��sound alike� substitutions may have occurred due to the inherent limitations of voice recognition software.
Discharge Plan
Departure
Patient Disposition: Home (Routine Discharge)
Date of Disposition: 07/14/24
Time of Disposition: 20:01
Patient with high blood pressure during this ER visit?: Yes
Condition: Good
Discharge Problem:
Syncope, vasovagal
Prescriptions:
No Action
sertraline 50 MG tablet
50 mg PO QPM
memantine 10 MG tablet
10 mg PO BID
donepezil 10 mg Tablet
10 mg PO DAILY
montelukast [Singulair] 10 mg Tablet
10 mg PO DAILY
diltiazem HCl 240 MG capsule,extended release 24hr
240 mg PO QPM
furosemide 40 mg Tablet
40 mg PO DAILY
docusate sodium [Colace] 100 mg Capsule
100 mg PO DAILY
budesonide-formoterol [Symbicort] 160-4.5 mcg/actuation Hfa Aerosol Inhaler
2 puff INHALATION R DAILY
atorvastatin 40 MG tablet
40 mg PO QPM
pantoprazole 40 MG tablet,delayed release (DR/EC)
40 mg PO DAILY
tiotropium bromide [Spiriva with HandiHaler] 18 mcg capsule, w/inhalation device
1 cap INHALATION R DAILY
Eliquis 5 mg tablet
5 mg PO BID
alprazolam 0.5 mg tablet
0.5 mg PO TID
Patient Comments:
12/02/2023: last filled 11/07/23, 120 tabs for 30 days from [facility]
lisinopril 20 mg Tablet
20 mg PO DAILY
albuterol sulfate [Ventolin HFA] 90 mcg/actuation Hfa Aerosol Inhaler
1 puff INHALATION ONCE
cephalexin 500 mg tablet
500 mg PO TID 3 Days Qty: 9 0RF
Referrals:
Tato Chung DO [Family Provider] -
Interventions
Interventions:
*Risk Screen - Suicide Last Done: 07/14/24 15:50
*General Assessment Last Done: 07/14/24 15:50
*Neglect/Abuse Screening Last Done: 07/14/24 15:50
ED- Fall Risk Assessment Last Done: 07/14/24 21:00
*ED COVID-19 Vaccine History Last Done: 07/14/24 15:50
*Nursing Disposition Last Done: 07/14/24 21:00
ED- Cardiac Assessment Last Done: 07/14/24 16:00
ED- Neurological Assessment Last Done: 07/14/24 16:00
ED- Pulmonary Assessment Last Done: 07/14/24 16:00
Discharge Date and Time
Discharge Date/Time: 07/14/24 21:00
Print Language: ALBANIAN
== END 2024-07-14 21:00 | disposition home or self-care (01) ==
LOC: EMR 15:36
PROVIDERS: Student in an Organized Health Care Education/Training Program; EMERGENCY PHYSICIAN Emergency Medicine; FAMILY PHYSICIAN Family Medicine
DX: R55 Syncope and collapse (principal); Z87.891 Personal history of nicotine dependence; I11.0 Hypertensive heart disease with heart failure; I50.9 Heart failure, unspecified
CPT/HCPCS: 99285; 51701; 71046; 80053; 81003; 81015; 83605; 84484; 85025; 87077; 87086; 87186; 93005

== ENCOUNTER 2024-11-15 17:44 | Inpatient (IN) | payer MEDICARE, BC, SELFPAY ==
[2024-11-15] VITALS (24 sets, daily range): BP systolic 49–172; BP diastolic 28–117; BMI 21.7; BMI 20.1
--- NOTE | 2024-11-15 12:01 | ED.GENMED ---
History of Present Illness
General
Chief Complaint: Breathing Problem
Time Seen by Provider: 11/15/24 11:48
History of Present Illness
History of Present Illness:
84-year-old female with history of dementia, COPD with chronic oxygen use, A-fib, CHF, hypertension, and hyperlipidemia presents the emergency department evaluation of respiratory distress. Patient apparently had a vomiting episode that was
followed by difficulty breathing. On arrival of EMS she was noted to be hypoxic on her standard 2.5 L nasal cannula but improved on 6 L. Patient can provide essentially no history. Family indicates that home care aides indicated that the patient
had cloudy urine earlier this week.
Past History
Past History
ED Past Medical History: Arrthythmia (afib), CHF, COPD (Wears oxygen at 2.5 liters), CVA (Left sided weakness), HTN, Hypercholesterolemia, Psychiatric and Other (Gout, Alzheimer dementia)
ED Past Surgical History: Cardiac (Stents), Tonsilectomy and Other (cataracts)
Patient has exhibited threatening behavior?: No
PSI?: No
Social History
Tobacco: Former smoker (Quit smoking 12 years ago)
Alcohol: None
Drug: None
Personal:
Living: intermediate
Employment: Retired
Family History
Family History: Other (Noncontributory)
Review of Systems
Review of Systems
Allergies reviewed?: Yes
All Other Systems: ROS reviewed and negative except as documented in HPI and ROS
Phy Exam
Physical Exam
Physical Exam:
GEN: Well appearing, NAD, WDWN
Eyes: PERRLA, EOMs intact, no scleral icterus
HENT: NCAT, oral mucosa moist
Lungs: Mild clearable rhonchi heard throughout all lung kim, mild bibasilar wheezes
Cardiac: RRR, no M/R/G, no peripheral edema. Radial pulses 2+ bilat
Abdomen: S, NT, ND, NABS, no masses or hepatosplenomegaly
Neuro: Alert, follows commands, pleasantly confused
MSK: No gross deformity or ecchymosis. No edema. No digital clubbing
Skin: No rashes, petechiae. Normal color, no pallor or jaundice.
Psych: Calm, cooperative, proper hygiene
Scores
Heart Failure Risk
Heart Failure Risk Score: Not Applicable
Course
Orders/Labs/Results
Orders:
Orders
11/15/24 11:58
0.9% Sodium Chloride 1000 ml [Nss] 1,000 ml IV BOLUS
CR Chest Portable - 1 View Urgent
Comment:
Reason For Exam: SOB
Reason Study Needs to be Portable: Other
11/15/24 12:10
Complete Blood Count/With Diff Urgent
Comprehensive Metabolic Panel Urgent
Venous Blood Gas Urgent
%Oxygen/Room Air: 86
Comment: 3L
11/15/24 12:11
COVID-19 Antigen Urgent
Source: Nasal Swab
Influenza A+B Rapid Molecular Urgent
DOC Source: Nasal Swab
Specimen Description:
11/15/24 12:49
Straight cath- Treatment ONCE
11/15/24 13:00
Lactic Acid Q4H
Comment: CANCEL 2nd LACTIC ACID IF 1st LACTIC ACID IS LESS THAN 2
Blood Culture Q30M
DOC Source: Blood/Venous
Specimen Description:
Blood Culture Q30M
DOC Source: Blood/Venous
Specimen Description:
11/15/24 13:40
Urinalysis Reflex To Culture Urgent
Date Specimen was Collected: 11/15/24
Time Specimen was Collected: 13:21
Urine Microscopic Reflex Cult Urgent
Urine Culture Urgent
DOC Source: U
Specimen Description:
Date Specimen was Collected: 11/15/24
Time Specimen was Collected: 13:21
11/15/24 14:13
CT Abd/pel Without Iv Or Oral Urgent
Comment:
Reason For Exam: urosepsis eval for obstruc
11/15/24 14:16
CefTRIAXone [Rocephin] 1,000 mg IV NOW STA
11/15/24 15:48
Ipratropium/Albuterol Sulfate [Duoneb] 3 ml INH R NOW ONE
11/15/24 17:00
Lactic Acid Q4H
Comment: CANCEL 2nd LACTIC ACID IF 1st LACTIC ACID IS LESS THAN 2
Abnormal Lab Results
11/15/24 11/15/24
12:10 13:40
WBC 16.0 H 10^3/uL
(4.8-10.8)
Hct 36.9 L %
(37.0-47.0)
Absolute Neuts (auto) 14.7 H 10^3/uL
(1.4-6.5)
Absolute Lymphs (auto) 0.6 L 10^3/uL
(1.2-3.4)
Neutrophils % 91.9 H %
(42.2-75.2)
Lymphocytes % 3.5 L %
(20.5-51.1)
VBG pCO2 64 H mmHg
(35-48)
VBG HCO3 33.7 H mmol/L
(22-27)
Carbon Dioxide 31 H mmol/L
(22-30)
BUN 22 H mg/dl
(7-17)
Creatinine 1.5 H mg/dL
(0.6-1.0)
Glucose 144 H mg/dl
(70-99)
Ur Occult Blood Reflex 1+ A
(Negative)
Urine Nitrite (Reflex) Positive A
(Negative)
Urine Bilirubin 1+ A
(Negative)
Leukocyte Esterase Rfl 3+ A
(Negative)
Urine WBC (Reflex) 40-50 A /HPF
(0-5)
Urine Bacteria (Reflex) Moderate A
(Negative)
Urine Albumin (Reflex) 2+ A
(Neg - Trace)
11/15/24 12:10
11/15/24 12:10
Vital Signs
Initial and Last Documented VS:
Initial Vital Signs
Temp Pulse Resp BP Pulse Ox
99.5 F 77 16 136/117 97
11/15/24 11:36 11/15/24 11:36 11/15/24 11:36 11/15/24 11:36 11/15/24 11:36
Last Documented Vital Signs
Temp Pulse Resp BP Pulse Ox
99.5 F 76 20 66/44 97
11/15/24 11:36 11/15/24 12:30 11/15/24 12:30 11/15/24 12:30 11/15/24 12:42
MDM/Problems Addressed
MDM/Problems Addressed:
Patient's hypoxia was likely triggered by an aspiration event, x-ray shows no evidence for aspiration pneumonia. However she is septic from urinary tract infection Thus will require hospitalization for IV antibiotics. Bronchodilators are started
for aspiration pneumonitis, no need for anaerobic coverage given acute nature of this event
*Critical Care Note
Total Time (30-74mins, 75-104mins- exclusive of procedures): Not Applicable
ED Attending Note
-
Portions of this chart may have been created with voice recognition software.� Occasional wrong word or��sound alike� substitutions may have occurred due to the inherent limitations of voice recognition software.
Discharge Plan
Departure
Patient Disposition: Admit
Date of Disposition: 11/15/24
Time of Disposition: 15:54
Admit to: Med/Surg
Presentation/result/management discussed w/ accepting MD/DO: Hospitalist
Discharge Problem:
Urinary tract infection, Acute aspiration pneumonitis
Prescriptions:
No Action
sertraline 50 MG tablet
50 mg PO QPM
memantine 10 MG tablet
10 mg PO BID
donepezil 10 mg Tablet
10 mg PO DAILY
montelukast [Singulair] 10 mg Tablet
10 mg PO DAILY
diltiazem HCl 240 MG capsule,extended release 24hr
240 mg PO QPM
furosemide 40 mg Tablet
40 mg PO DAILY
docusate sodium [Colace] 100 mg Capsule
100 mg PO DAILY
budesonide-formoterol [Symbicort] 160-4.5 mcg/actuation Hfa Aerosol Inhaler
2 puff INHALATION R DAILY
atorvastatin 40 MG tablet
40 mg PO QPM
pantoprazole 40 MG tablet,delayed release (DR/EC)
40 mg PO DAILY
tiotropium bromide [Spiriva with HandiHaler] 18 mcg capsule, w/inhalation device
1 cap INHALATION R DAILY
Eliquis 5 mg tablet
5 mg PO BID
alprazolam 0.5 mg tablet
0.5 mg PO TID
Patient Comments:
12/02/2023: last filled 11/07/23, 120 tabs for 30 days from [id number]
lisinopril 20 mg Tablet
20 mg PO DAILY
albuterol sulfate [Ventolin HFA] 90 mcg/actuation Hfa Aerosol Inhaler
1 puff INHALATION ONCE
cephalexin 500 mg tablet
500 mg PO TID 3 Days Qty: 9 0RF
cephalexin 500 mg tablet
500 mg PO BID 5 Days Qty: 10 0RF
Referrals:
Tato Chung DO [Family Provider] -
Interventions
Interventions:
*Risk Screen - Suicide Last Done: 11/15/24 11:36
*General Assessment Last Done: 11/15/24 12:35
*Neglect/Abuse Screening Last Done: 11/15/24 11:36
*ED- Fall Risk Assessment Last Done: 11/15/24 12:35
*ED COVID-19 Vaccine History Last Done: 11/15/24 12:35
ED- Cardiac Assessment Last Done: 11/15/24 12:42
ED- Pulmonary Assessment Last Done: 11/15/24 12:42
Discharge Date and Time
Print Language: WELSH
[2024-11-15 12:22] LABS: % Basophils 0.3 % (0-2); % Eosinophils 0.9 % (0-6); % Immature Granulocytes 0.3 % (0-0.5); % Lymphocytes 3.5 % (20.5-51.1); % Monocytes 3.1 % (1.7-9.3); % Neutrophils 91.9 % (42.2-75.2); Absolute Eosinophils 0.1 10^3/uL (0-0.7); Absolute Lymphocytes 0.6 10^3/uL (1.2-3.4); Absolute Monocytes 0.5 10^3/uL (0.1-0.6); Absolute Neutrophils 14.7 10^3/uL (1.4-6.5); Hematocrit 36.9 % (37.0-47.0); Hemoglobin 12.2 g/dL (12.0-16.0); Mean Corp Hgb Conc. 33.1 g/dL (33.0-37.0); Mean Corpuscular Hgb 27.5 pg (27.0-31.0); Mean Corpuscular Volume 83.3 fL (81.0-99.0); Mean Platelet Volume 9.6 fL (7.4-10.4); Nucleated Red Blood Cells % 0 %; Platelet Count 349 10^3/uL (130-400); Red Blood Cell Count 4.43 10^6/uL (4.20-5.40); Red Cell Dist. Width 13.2 % (11.5-14.5)
[2024-11-15 12:24] LABS: Venous Blood Gas B.E. 5.9 mmol/L (-4 to +4); Venous Blood Gas HCO3 33.7 mmol/L (22-27); Venous Blood Gas O2 Sat % 49.7 %; Venous Blood Gas pCO2 64 mmHg (35-48); Venous Blood Gas pH 7.33 (7.32-7.43); Venous Blood Gas pO2 37 mmHg (30-50)
[2024-11-15 12:25] LABS: Venous Blood Gas O2 Therapy 3L
[2024-11-15] MEDS: NSS 1000 IV ×2 (12:26→21:14)
[2024-11-15 12:40] LABS: ALT (SGPT) < 10 U/L (0-35); AST (SGOT) 17 U/L (14-36); Albumin 3.9 g/dl (3.5-5.0); Alkaline Phosphatase 118 U/L (38-126); Blood Urea Nitrogen 22 mg/dl (7-17); Calcium 9.5 mg/dl (8.4-10.2); Carbon Dioxide 31 mmol/L (22-30); Chloride 100 mmol/L (98-107); Estimated Creatinine Clearance 26 ml/min; Glucose 144 mg/dl (70-99); Potassium 4.3 mmol/L (3.5-5.1); Sodium 139 mmol/L (135-145); Total Bilirubin 0.7 mg/dl (0.2-1.3); Total Protein 6.8 g/dl (6.3-8.2); eGFR 33.94
[2024-11-15 12:48] LABS: COVID-19 Antigen Negative (Negative)
[2024-11-15 13:23] LABS: Lactic Acid 1.9 mmol/L (0.7-2.0)
[2024-11-15 13:56] LABS: Urine Albumin 2+ (Neg - Trace); Urine Bilirubin 1+ (Negative); Urine Character Slightly Cloudy (Clear); Urine Color Yellow; Urine Glucose Negative (Negative); Urine Ketone Negative (Negative); Urine Leukocyte 3+ (Negative); Urine Nitrite Positive (Negative); Urine Occult Blood 1+ (Negative); Urine Urobilinogen Negative (Neg - 1+)
[2024-11-15 14:12] LABS: Urine Red Blood Cell 0-2 /HPF (0-2)
[2024-11-15 14:13] LABS: Urine Amorphous Seen; Urine Bacteria Moderate (Negative); Urine White Cell 40-50 /HPF (0-5)
[2024-11-15] MEDS: ROCEPHIN 1000 MG IV (14:56)
[2024-11-15] MEDS: DUONEB 3 ML INH (15:56)
--- NOTE | 2024-11-15 16:03 | HPS.HSE ---
Family Physician
-
Family Physician: Tato Chung
Chief Complaint
-
hypoxia
History of Present Illness
Patient is a 84-year-old female with past medical history significant for paroxysmal atrial fibrillation, CAD, chronic HFpEF, COPD on 2.5 L at baseline, hypertension, hyperlipidemia, GERD, CKD 3B, and anxiety/depression who presented to [facility] ED for evaluation for hypoxia. Patient daughters at bedside to assist in HPI. Patient this morning was heard coughing, daughter entered room and patient was actively vomiting and unable to clear from her mouth. Patient SpO2 dropped quickly
and daughter called 911. Daughter states that now thinking about it, the patient has had increased agitation at night the past few nights. She had an episode of diarrhea today prior to hospital transport. Denies any recent fevers, chills, cough,
shortness of breath, chest pain, constipation, diarrhea or urinary symptoms.
Medical History
Past Medical History
Past Medical History: Reports Other
Additional Past Medical History:
paroxysmal atrial fibrillation
CAD
chronic HFpEF
COPD on 2.5 L at baseline
hypertension
hyperlipidemia
GERD
CKD 3B
anxiety/depression
C. difficile
CVA
subclavian steal syndrome
Mcnulty's palsy
arthritis
ambulatory dysfunction
compression fractures
Past Surgical History: Reports Other
Additional Past Surgical History:
cardiac stent
Social History
Tobacco: Former Smoker
Alcohol: None
Drug: None
Living: With Family
Employment: Retired
Family History
Family History: Not pertinent
Allergies / Home Medications
Allergies reflects when Allergies were last updated in [employer].
Home Medications with original date entered in [employer]
Allergy/Medication List:
Allergies
Allergy/AdvReac Type Severity Reaction Status Date / Time
codeine Allergy Itching Verified 11/15/24 11:35
Iodinated Contrast Media Allergy Unknown Verified 11/15/24 11:35
iodine Allergy Unknown Verified 11/15/24 11:35
methylprednisolone Allergy Rash Verified 11/15/24 11:35
Penicillins Allergy Hives Verified 11/15/24 11:35
prednisone Allergy Unknown Verified 11/15/24 11:35
shellfish derived Allergy Swelling/an Verified 11/15/24 11:35
gioedema
Home Medications
memantine 10 mg tablet 10 mg PO BID Neurological Condition 12/13/21
sertraline 50 mg tablet 50 mg PO QPM Depression 12/13/21
donepezil 10 mg tablet 10 mg PO DAILY memory 05/26/22
montelukast 10 mg tablet (Singulair) 10 mg PO DAILY asthma 10/14/22
atorvastatin 40 mg tablet 40 mg PO QPM High Cholesterol 09/10/23
budesonide-formoterol HFA 160 mcg-4.5 mcg/actuation aerosol inhaler (Symbicort) 2 puff inhalation R DAILY Lung/Breathing Issues 09/10/23
docusate sodium 100 mg capsule (Colace) 100 mg PO DAILY Gastrointestinal Issue 09/10/23
furosemide 40 mg tablet 40 mg PO DAILY Fluid Retention/Swelling 09/10/23
pantoprazole 40 mg tablet,delayed release 40 mg PO DAILY Gastrointestinal Issue 09/10/23
alprazolam 0.5 mg tablet 0.5 mg PO TID anxiety 12/02/23
apixaban 5 mg tablet (Eliquis) 5 mg PO BID Blood Clot Prevention/Tx 12/02/23
tiotropium bromide 18 mcg capsule with inhalation device (Spiriva with HandiHaler) 1 cap inhalation R DAILY Lung/Breathing Issues 12/02/23
albuterol sulfate 90 mcg/actuation aerosol inhaler (Ventolin HFA) 1 puff inhalation ONCE Lung/Breathing Issues 04/24/24
lisinopril 20 mg tablet 20 mg PO DAILY Blood Pressure 04/24/24
diltiazem HCl 90 mg tablet 90 mg PO TID 11/15/24
Review of Systems
-
Unable to obtain full review of systems at this time due to: Dementia
History Source: Family
Constitutional: Reports No Symptoms
EENT: Reports No Symptoms
Respiratory: Reports Cough and Other (increased oxygen needs)
Cardiac: Reports No Symptoms
Abdomen/GI: Reports Nausea, Vomiting and Diarrhea
: Reports No Symptoms
Musculoskeletal: Reports No Symptoms
Skin: Reports No Symptoms
Neurological: Reports No Symptoms
Endocrine: Reports No Symptoms
Hematologic/Lymphatic: Reports No Symptoms
Psych: Reports No Symptoms
Physical Exam
Vital Signs
Vital Signs
Temp Pulse Resp BP Pulse Ox
99.5 F 76 20 66/44 97
11/15/24 11:36 11/15/24 12:30 11/15/24 12:30 11/15/24 12:30 11/15/24 12:42
Physical Exam
General: Well Developed, Well Nourished, No Apparent Distress and Comfortable
HEENT: NormoCephalic, Moist mucous membranes, Atraumatic, Bridger Conjunctivae, Nose Appears Normal and Ears Appear Normal
Respiratory: Wheezes, Rhonchi, Crackles and Decreased Breath Sounds
Cardiac: S1/S2 and Regular Rhythm; No Murmur, Rub or Gallop
GI: Soft, Non Tender, Non Distended and Normal Bowel Sounds; No Organomegaly
Rectal: Deferred by Provider
Genito-urinary: Deferred by me
Musculoskeletal: No Clubbing, No Cyanosis and No Edema
Skin: Warm, Ulcers (start of pressure ulcer to sacrum) and IV/Catheter Site; No Rash
Neuro: Awake and Nonfocal/grossly intact
Psych: Calm
Laboratory Results
-
11/15/24 12:10
11/15/24 12:10
Laboratory Results
Lactic Acid 1.9 mmol/L (0.7-2.0) 11/15/24 13:00
Total Bilirubin 0.7 mg/dl (0.2-1.3) 11/15/24 12:10
AST 17 U/L (14-36) 11/15/24 12:10
ALT < 10 U/L (0-35) 11/15/24 12:10
Alkaline Phosphatase 118 U/L (38-126) 11/15/24 12:10
Data Reviewed
-
Diagnostic Radiology: Report Reviewed by me (CXR: Stable left basilar probable scarring. Difficult to rule out superimposed pneumonia, although felt less likely.)
CT Scan: Report Reviewed by me (Abd/Pel: 1. No significant acute abnormality identified in the abdomen or pelvis, within the limits of unenhanced CT, as described above. Chronic changes as described.)
Lab Data: Labs Reviewed by me (WBC 16.0, Neut 91.9, BUN 22, Creat 1.5, )
Impression/Plan
-
IMPRESSION/PLAN:
#hypoxic respiratory failure likely 2/2 aspiration event from emesis
CXR: Stable left basilar probable scarring. Difficult to rule out superimposed pneumonia, although felt less likely.
Abd/Pel CT: 1. No significant acute abnormality identified in the abdomen or pelvis, within the limits of unenhanced CT, as described above. Chronic changes as described.
Covid: negative
Influenza: negative
- Admit to telemetry
- O2 wean to baseline as able
- IV antibiotics
- supportive care
- consult speech
#urinary tract infection
UA: indicative of UTI
UA C&S: pending
WBC 16.0
- IVF
- IV antibiotics
- supportive care
#gastroenteritis
emesis
1 episode of diarrhea today
- consider stool studies if further diarrhea
- clear liquid diet consider to advance as tolerated
#COPD
Oxygen 2.5 L at baseline
- continue home inhaler regimen
- continue montelukast
#paroxysmal atrial fibrillation
- continue diltiazem and Eliquis
#hyperlipidemia
#CAD
- continue atorvastatin
#chronic HFpEF
- daily weights
- continue furosemide
#hypertension
- continue furosemide and lisinopril
#GERD
- continue pantoprazole
#CKD 3B
BUN 22, Creat 1.5
#anxiety/depression
- continue alprazolam and sertraline
#dementia
donepezil and memantine
Code status: DNR
DVT Prophylaxis: Lovenox Sq
--- NOTE | 2024-11-15 17:01 | W.PN.UPDATE ---
Update Note
Progress Note Update
This is an addendum to the H&P written by H&P written by Odilia Alonso on 11/15/2024. Patient seen and examined independently with REPAIRER RESISTANCE WELDING MACHINES.
84-year-old female past medical history of paroxysmal atrial fibrillation on Eliquis, CAD, chronic HFpEF, COPD on 2.5 L at baseline, C. difficile, CVA, subclavian steal syndrome, hypertension, hyperlipidemia, GERD, CKD 3B,'s emergency, Mcnulty's palsy,
anxiety/depression, arthritis, ambulatory dysfunction, compression fractures presenting with shortness of breath. Patient had a vomiting episode followed by difficulty breathing. She was noted to be hypoxic by EMS and placed on 6 L oxygen. She
apparently had cloudy urine earlier this week. Had a single episode of diarrhea today.
Patient with hypertension with blood pressures 60s systolic, recorded incorrectly. Blood pressure currently 170s. Labs show leukocytosis. Creatinine of 1.5 close to baseline.
Chest x-ray shows stable left basilar scarring, difficult to rule out superimposed pneumonia. CT abdomen pelvis shows no abnormality. Flu and COVID-negative.
Urinalysis shows 40-50 WBC, slightly cloudy urine, positive nitrates.
Patient with hypoxemic respiratory failure secondary to aspiration pneumonitis from vomiting well as possible UTI.
Also with possible gastroenteritis. Check stool studies if further diarrhea.
Check blood cultures. IV fluids. Ceftriaxone/Flagyl.
Clear liquid diet. Check speech and swallow evaluation.
[2024-11-15] MEDS: ZOFRAN 4 MG IV (17:13)
[2024-11-15] MEDS: XANAX 0.5 MG PO (18:18)
[2024-11-15] MEDS: ProAIR HFA INHALER 1 PUFF INH (20:23)
[2024-11-15] MEDS: ZOLOFT 50 MG PO (21:24)
[2024-11-15] MEDS: LIPITOR 40 MG PO (21:24)
[2024-11-15] MEDS: NAMENDA 10 MG PO (21:24)
[2024-11-15] MEDS: CARDIZEM 90 MG PO (21:24)
[2024-11-15] MEDS: ELIQUIS 5 MG PO (21:24)
[2024-11-15] MEDS: FLAGYL 500 MG 100 IV (21:29)
[2024-11-15] MEDS: SYMBICORT 160/4.5 MCG INHALER INH (22:21)
[2024-11-15] MEDS: TYLENOL 650 MG PO (22:45)
--- NOTE | 2024-11-15 22:50 | PTCARENOTE ---
Pt received from ED via stretcher. Pulled over to bed x3 w/o incident. AAOx1, mildly lethargic, confused. Telemetry = SR. Oriented to surroundings and plan of care discussed. Pt very poor historian, asks RN 'who are you' with every interaction.
Admission intake completed via medical record. Physical assessment as documented. Pressure injury noted to sacrum/L buttock (small open areas - stage 2), skin prepped and sacral foam applied. Incontinence care provided. Q2 turns. Passed swallow
screen, meds administered whole w/water. #22 RH PIV patent, #20 LFA PIV w/NSS at 80 mL/hr. Bed alarm active for safety. Call rula w/in reach.
[2024-11-16 00:57] VITALS: BMI 20.1
[2024-11-16 02:55] VITALS: BP 122/51
[2024-11-16] MEDS: FLAGYL 500 MG 100 IV ×3 (05:18→22:17)
[2024-11-16 05:43] VITALS: BMI 19.8
[2024-11-16 07:00] VITALS: BP 105/55
[2024-11-16] MEDS: ARICEPT 10 MG PO (08:19)
[2024-11-16] MEDS: CARDIZEM 90 MG PO ×3 (08:21→22:14)
[2024-11-16] MEDS: NAMENDA 10 MG PO ×2 (08:22→20:11)
[2024-11-16] MEDS: XANAX 0.5 MG PO ×3 (08:22→17:01)
[2024-11-16] MEDS: LASIX 40 MG PO (08:22)
[2024-11-16] MEDS: PROTONIX 40 MG PO (08:22)
[2024-11-16] MEDS: SPIRIVA RESPIMAT 2.5 MCG 2 PUFF INH (08:22)
[2024-11-16] MEDS: ELIQUIS 2.5 MG PO ×2 (08:22→20:11)
[2024-11-16] MEDS: COLACE 100 MG PO (08:22)
[2024-11-16] MEDS: SINGULAIR 10 MG PO (08:22)
[2024-11-16] MEDS: SYMBICORT 160/4.5 MCG INHALER 2 PUFF INH ×2 (08:22→19:37)
[2024-11-16] MEDS: ZESTRIL PO (08:23)
[2024-11-16 08:28] LABS: Hematocrit 28.1 % (37.0-47.0); Mean Corpuscular Hgb 27.4 pg (27.0-31.0); Mean Corpuscular Volume 85.7 fL (81.0-99.0); Mean Platelet Volume 10.3 fL (7.4-10.4); Platelet Count 270 10^3/uL (130-400); Red Blood Cell Count 3.28 10^6/uL (4.20-5.40); Red Cell Dist. Width 13.6 % (11.5-14.5); White Blood Cell Count 8.9 10^3/uL (4.8-10.8)
[2024-11-16 08:47] LABS: Blood Urea Nitrogen 24 mg/dl (7-17); Calcium 8.3 mg/dl (8.4-10.2); Carbon Dioxide 26 mmol/L (22-30); Chloride 107 mmol/L (98-107); Estimated Creatinine Clearance 23 ml/min; Glucose 81 mg/dl (70-99); Potassium 3.6 mmol/L (3.5-5.1); Sodium 139 mmol/L (135-145); eGFR 33.94
[2024-11-16] MEDS: NSS IV (09:11)
--- NOTE | 2024-11-16 09:40 | PTOTSP ---
Speech Therapy Assessment
Patient deemed at mildly elevated risk of aspiration based on results of two previous video swallow examinations and today's bedside assessment.
Recommend
1. IDDSI 6 (Soft and Bite-Sized) and Thin Liquids
2. Meds whole in applesauce.
3. Upright during meals and for [address] will follow up briefly to ensure diet tolerance.
[2024-11-16 11:25] VITALS: BP 119/85
[2024-11-16] MEDS: STERILE WATER FOR INJECTION 10 ML IV (13:24)
[2024-11-16] MEDS: ROCEPHIN 1000 MG IV (13:24)
[2024-11-16 15:00] VITALS: BP 123/54
--- NOTE | 2024-11-16 15:22 | CM ---
manager heavy equipment reviewed patient's chart and met with patient and daughter Scar at bedside, patient lives with her daughter, Jessica in a 2 story home, patient has hospital bed on 1st floor, along with chair lift and patient has a ramp to enter home,
inogen, portables and concentrator, patient has home health aide in home, and per daughter plan is to home with her daughter Charly and [facility], [facility] liasion contacted.
PCP: Dr. Chung
Pharmacy: [facility]
Plan; Home with daughter Jessica and [facility].
--- NOTE | 2024-11-16 15:57 | VNURNOTE ---
Home Health Liaison spoke with patient's daughter Jessica to discuss [facility] nurse/therapy, visits, schedule and homebound status. Daughter is agreeable and understands that visits at home will be 2-3 x per week to assess and teach medical management.
Daughter is aware that [facility] will contact them for start of care in 1-2 days after discharge from . Daughter confirms that patient has 02 through [employer].
[facility] referral completed in [facility].
[2024-11-16] MEDS: LIPITOR 40 MG PO (17:00)
[2024-11-16] MEDS: ZOLOFT 50 MG PO (17:01)
--- NOTE | 2024-11-16 17:17 | W.PN.HOSP.TC ---
Addendum entered and electronically signed by Jose Montoya DO 11/17/24 14:01:
- aspiration pneumonitis was present on admission
Original Note:
Today's Communication/Plan
-
Assessment / Plan
Assessment / Plan
Gen-AAOx3, NAD
HEENT-NC, AT, anicteric, clear oral mm
Neck-supple
CV-reg, no M, +S1/S2
Lungs-clear B/L
Abd-soft, NT, ND
Musculoskeletal-no edema, no deformity
Skin-warm and dry
Neuro-grossly non-focal
Psych-calm, cooperative
Ms. Escobedo is a 84-year-old female with a medical history of paroxysmal A-fib (on Eliquis), CAD, HFpEF, COPD (2 to 3 L O2 at baseline), CVA, subclavian steal syndrome, hypertension, CKD stage IIIb, ambulatory dysfunction, and C. difficile who
presented with shortness of breath following an episode of vomiting. She had a single episode of diarrhea prior to arrival and her urine appeared cloudy earlier in the week. She was requiring increased supplemental oxygen of up to 6 L and so was
brought to the emergency department for further evaluation. Chest x-ray showed stable left basilar scarring but unable to rule out superimposed pneumonia. Respiratory panel was negative for influenza and COVID-19. She was started on antibiotics
with ceftriaxone and metronidazole and admitted for further evaluation and management.
Acute on chronic respiratory failure with hypoxia:
-Suspect due to aspiration following episode of vomiting superimposed on COPD
-Requires 2 to 3 L O2 at baseline, was up to 6 L at time of admission
-Now saturating appropriately on baseline 3 L O2 via nasal cannula
-Respiratory panel negative for COVID-19 and influenza
-Has significant leukocytosis of 16,000 at time of admission which has resolved today
-Will continue antibiotics with ceftriaxone and metronidazole, blood cultures negative to date
-No further vomiting, evaluated by EQUIPMENT ASSOCIATE who recommended soft and bite-size diet
UTI:
-Urinalysis showing significant pyuria and bacteriuria
-Urine culture growing E. coli, sensitivities pending, prior cultures from 07/14/2024 show sensitivity to ceftriaxone which we will continue
Diarrhea:
-Had an episode of diarrhea prior to admission
-Will monitor for now and obtain stool studies if persistent
-No intra-abdominal abnormalities on CT imaging
CKD stage IIIb:
-Appears close to baseline renal function
-Monitor
CODE STATUS: DNR
Anticipated Discharge: 24 - 48 hours
Subjective/Interval History
-
Date of Service: November 16, 2024
Patient was seen and examined at bedside this morning. She was evaluated by EQUIPMENT ASSOCIATE who recommended advancing diet to soft and bite-size. IV fluids have been discontinued. She remains on antibiotics with ceftriaxone and metronidazole. Her Eliquis
has been reduced to low-dose considering age and renal function.
Objective Data
-
Labs:
Laboratory Results
11/16/24
07:46
WBC 8.9
Hgb 9.0 L D
Hct 28.1 L
Plt Count 270 D
Sodium 139
Potassium 3.6
Chloride 107
Carbon Dioxide 26
BUN 24 H
Creatinine 1.5 H
Glucose 81
Calcium 8.3 L
Vital Signs:
Vital Signs
Temp Pulse Resp BP Pulse Ox
98.3 F 73 20 123/54 92
11/16/24 15:00 11/16/24 15:00 11/16/24 15:00 11/16/24 15:00 11/16/24 15:00
I&O
11/15/24 11/16/24 11/17/24
06:59 06:59 06:59
Intake Total 1160 / 1160
Balance 1160 / 1160
Review of Systems
-
History Source: Patient
All other systems: Reviewed and negative
Physical Exam
-
General: No Apparent Distress
[2024-11-16 19:57] VITALS: BP 112/45
[2024-11-16 22:14] VITALS: BP 115/46
[2024-11-17 03:39] VITALS: BP 137/48
[2024-11-17] MEDS: FLAGYL 500 MG 100 IV ×3 (05:06→21:55)
[2024-11-17 05:18] VITALS: BMI 20.9
[2024-11-17 07:00] VITALS: BP 152/53
[2024-11-17 07:37] LABS: % Basophils 0.4 % (0-2); % Eosinophils 1.9 % (0-6); % Immature Granulocytes 0.4 % (0-0.5); % Lymphocytes 25.6 % (20.5-51.1); % Neutrophils 59.7 % (42.2-75.2); Absolute Eosinophils 0.1 10^3/uL (0-0.7); Absolute Lymphocytes 1.8 10^3/uL (1.2-3.4); Absolute Monocytes 0.8 10^3/uL (0.1-0.6); Absolute Neutrophils 4.2 10^3/uL (1.4-6.5); Hematocrit 26.1 % (37.0-47.0); Hemoglobin 8.7 g/dL (12.0-16.0); Mean Corp Hgb Conc. 33.3 g/dL (33.0-37.0); Mean Corpuscular Hgb 27.5 pg (27.0-31.0); Mean Corpuscular Volume 82.6 fL (81.0-99.0); Mean Platelet Volume 9.7 fL (7.4-10.4); Nucleated Red Blood Cells % 0 %; Platelet Count 247 10^3/uL (130-400); Red Blood Cell Count 3.16 10^6/uL (4.20-5.40); Red Cell Dist. Width 13.4 % (11.5-14.5)
[2024-11-17] MEDS: SYMBICORT 160/4.5 MCG INHALER 2 PUFF INH ×2 (08:18→19:12)
[2024-11-17] MEDS: SPIRIVA RESPIMAT 2.5 MCG 2 PUFF INH (08:18)
[2024-11-17] MEDS: CARDIZEM 90 MG PO ×3 (08:37→21:55)
[2024-11-17] MEDS: ZESTRIL 10 MG PO (08:40)
[2024-11-17 08:46] LABS: Blood Urea Nitrogen 17 mg/dl (7-17); Calcium 8.3 mg/dl (8.4-10.2); Carbon Dioxide 27 mmol/L (22-30); Chloride 104 mmol/L (98-107); Estimated Creatinine Clearance 31 ml/min; Glucose 93 mg/dl (70-99); Magnesium 1.7 mg/dl (1.6-2.3); Phosphorus 2.1 mg/dl (2.5-4.5); Potassium 3.2 mmol/L (3.5-5.1); Sodium 136 mmol/L (135-145); eGFR 44.36
[2024-11-17] MEDS: COLACE 100 MG PO (08:48)
[2024-11-17] MEDS: LASIX 40 MG PO (08:48)
[2024-11-17] MEDS: SINGULAIR 10 MG PO (08:48)
[2024-11-17] MEDS: XANAX 0.5 MG PO ×3 (08:48→17:56)
[2024-11-17] MEDS: ELIQUIS 2.5 MG PO ×2 (08:49→21:54)
[2024-11-17] MEDS: PROTONIX 40 MG PO (08:49)
[2024-11-17] MEDS: NAMENDA 10 MG PO ×2 (08:49→21:55)
[2024-11-17] MEDS: ARICEPT 10 MG PO (08:49)
--- NOTE | 2024-11-17 09:43 | CM ---
Chart reviewed and case technician will reach out to patient's daughter Jessica today, to review discharge plan, plan is to home with [facility], will need to confirm that patient's home oxygen meets her needs.
Plan; Home with [facility].
[2024-11-17 11:00] VITALS: BP 119/45
--- NOTE | 2024-11-17 13:07 | PN.CDI ---
CDI
- -
CDI:
Physician Documentation Request
Admit Date: 11/15/24 17:44
Dear Doctor Jan
Please review the following and provide your response in the progress notes.
Clinical Indicators:
The diagnosis of acute aspiration pneumonitis was documented on 11/15 in ED record, but is not consistently noted in subsequent documentation.
Please clarify the following:
____ - aspiration pneumonitis was present on admission
____ - aspiration pneumonitis was ruled out
____ - Other
Use of terms such as suspected, likely, concern for, or probable (associated with a specific diagnosis that is being evaluated, monitored, or treated as if it exists) are acceptable and can be coded in the inpatient setting, when documented at the
time of discharge.
Thank you,
Estela Rm RN, BSN
CDI Specialist
tiger text
Please use your independent medical judgment in providing your response.
--- NOTE | 2024-11-17 13:11 | PN.CDI ---
CDI
- -
CDI:
Physician Documentation Request
Admit Date: 11/15/24 17:44
Dear Doctor Jan
Please review the following and provide your response in the progress notes.
Clinical Indicators:
The diagnosis of acute aspiration pneumonitis was documented on 11/15 in ED record, but is not consistently noted in subsequent documentation.
11/16 progress note states 'Will continue antibiotics with ceftriaxone and metronidazole'
Please clarify the following:
____ - aspiration pneumonitis was present on admission
____ - aspiration pneumonitis was ruled out
____ - Other
Use of terms such as suspected, likely, concern for, or probable (associated with a specific diagnosis that is being evaluated, monitored, or treated as if it exists) are acceptable and can be coded in the inpatient setting, when documented at the
time of discharge.
Thank you,
Estela Rm RN, BSN
CDI Specialist
tiger text
Please use your independent medical judgment in providing your response.
--- NOTE | 2024-11-17 14:29 | W.PN.HOSP.TC ---
Addendum entered and electronically signed by Jose Montoya DO 11/18/24 11:01:
Clarification: Patient has COPD without current exacerbation
Original Note:
Today's Communication/Plan
-
Assessment / Plan
Assessment / Plan
Gen-AAOx3, NAD
HEENT-NC, AT, anicteric, clear oral mm
Neck-supple
CV-reg, no M, +S1/S2
Lungs-clear B/L
Abd-soft, NT, ND
Musculoskeletal-no edema, no deformity
Skin-warm and dry
Neuro-grossly non-focal
Psych-calm, cooperative
Ms. Escobedo is a 84-year-old female with a medical history of paroxysmal A-fib (on Eliquis), CAD, HFpEF, COPD (2 to 3 L O2 at baseline), CVA, subclavian steal syndrome, hypertension, CKD stage IIIb, ambulatory dysfunction, and C. difficile who
presented with shortness of breath following an episode of vomiting. She had a single episode of diarrhea prior to arrival and her urine appeared cloudy earlier in the week. She was requiring increased supplemental oxygen of up to 6 L and so was
brought to the emergency department for further evaluation. Chest x-ray showed stable left basilar scarring but unable to rule out superimposed pneumonia. Respiratory panel was negative for influenza and COVID-19. She was started on antibiotics
with ceftriaxone and metronidazole and admitted for further evaluation and management.
Acute on chronic respiratory failure with hypoxia:
-Suspect due to aspiration following episode of vomiting superimposed on COPD
-Resolved to baseline
-Requires 2 to 3 L O2 at baseline, was up to 6 L at time of admission, now back to 3 L
-Respiratory panel negative for COVID-19 and influenza
-Had significant leukocytosis of 16,000 at time of admission which has resolved
-Will continue antibiotics with ceftriaxone and metronidazole, blood cultures negative to date
-No further vomiting, evaluated by FLY RAISER LOCKSTITCH who recommended soft and bite-size diet
UTI:
-Urinalysis showing significant pyuria and bacteriuria
-Urine culture growing pansensitive E. coli, will continue ceftriaxone
Diarrhea:
-Had an episode of diarrhea prior to admission and 2 episodes today 11/17
-Will check stool studies
-No intra-abdominal abnormalities on CT imaging
CKD stage IIIb:
-Appears close to baseline renal function
-Monitor
CODE STATUS: DNR
Anticipated Discharge: 24 - 48 hours
Subjective/Interval History
-
Date of Service: November 17, 2024
Patient was seen and examined at bedside this morning. Calm and comfortable. Confused, asked me to update her mother and was upset that her father did not come to visit her in the hospital.
Objective Data
-
Labs:
Laboratory Results
11/17/24
07:28
WBC 7.0
Hgb 8.7 L
Hct 26.1 L
Plt Count 247
Sodium 136
Potassium 3.2 L
Chloride 104
Carbon Dioxide 27
BUN 17
Creatinine 1.2 H
Glucose 93
Calcium 8.3 L
Vital Signs:
Vital Signs
Temp Pulse Resp BP Pulse Ox
98.7 F 68 18 119/45 95
11/17/24 11:00 11/17/24 11:00 11/17/24 11:00 11/17/24 11:00 11/17/24 11:00
I&O
11/16/24 11/17/24 11/18/24
06:59 06:59 06:59
Intake Total 1160 / 1160 100 / 100 100 / 100
Balance 1160 / 1160 100 / 100 100 / 100
Review of Systems
-
Unable to obtain full review of systems at this time due to: Dementia
Physical Exam
-
General: No Apparent Distress
[2024-11-17] MEDS: ROCEPHIN 1000 MG IV (14:34)
[2024-11-17] MEDS: STERILE WATER FOR INJECTION 10 ML IV (14:34)
[2024-11-17] MEDS: FLUSH (NSS) 2 FLUSH IV (14:36)
[2024-11-17 15:00] VITALS: BP 133/46
[2024-11-17] MEDS: LIPITOR 40 MG PO (17:58)
[2024-11-17] MEDS: ZOFRAN 4 MG IV (17:58)
[2024-11-17] MEDS: ZOLOFT 50 MG PO (17:58)
[2024-11-17 18:44] LABS: COVID-19 Antigen Negative (Negative)
[2024-11-17 22:54] VITALS: BP 128/52
[2024-11-18 03:46] VITALS: BP 129/56
[2024-11-18] MEDS: FLAGYL 500 MG 100 IV ×3 (05:15→21:00)
[2024-11-18 05:29] VITALS: BMI 21.3
[2024-11-18 07:47] VITALS: BP 155/59
[2024-11-18] MEDS: SPIRIVA RESPIMAT 2.5 MCG 2 PUFF INH (07:50)
[2024-11-18] MEDS: SYMBICORT 160/4.5 MCG INHALER 2 PUFF INH ×2 (07:50→19:48)
[2024-11-18 08:11] LABS: % Basophils 0.5 % (0-2); % Eosinophils 4.5 % (0-6); % Immature Granulocytes 0.2 % (0-0.5); % Lymphocytes 29.5 % (20.5-51.1); % Monocytes 11.4 % (1.7-9.3); % Neutrophils 53.9 % (42.2-75.2); Absolute Eosinophils 0.3 10^3/uL (0-0.7); Absolute Lymphocytes 1.8 10^3/uL (1.2-3.4); Absolute Monocytes 0.7 10^3/uL (0.1-0.6); Absolute Neutrophils 3.3 10^3/uL (1.4-6.5); Hematocrit 26.9 % (37.0-47.0); Hemoglobin 8.9 g/dL (12.0-16.0); Mean Corp Hgb Conc. 33.1 g/dL (33.0-37.0); Mean Corpuscular Hgb 27.6 pg (27.0-31.0); Mean Corpuscular Volume 83.3 fL (81.0-99.0); Mean Platelet Volume 10.2 fL (7.4-10.4); Nucleated Red Blood Cells % 0 %; Platelet Count 262 10^3/uL (130-400); Red Blood Cell Count 3.23 10^6/uL (4.20-5.40); Red Cell Dist. Width 13.6 % (11.5-14.5); White Blood Cell Count 6.1 10^3/uL (4.8-10.8)
[2024-11-18] MEDS: CARDIZEM 90 MG PO ×3 (08:38→20:45)
[2024-11-18] MEDS: ELIQUIS 2.5 MG PO ×2 (08:38→20:45)
[2024-11-18] MEDS: XANAX 0.5 MG PO (08:39)
[2024-11-18] MEDS: NAMENDA 10 MG PO ×2 (08:40→20:45)
[2024-11-18] MEDS: ZESTRIL 10 MG PO (08:40)
[2024-11-18] MEDS: ARICEPT 10 MG PO (08:40)
[2024-11-18] MEDS: LASIX 40 MG PO (08:40)
[2024-11-18] MEDS: PROTONIX 40 MG PO (08:40)
[2024-11-18] MEDS: SINGULAIR 10 MG PO (08:40)
[2024-11-18] MEDS: COLACE PO (08:41)
[2024-11-18 08:58] LABS: Blood Urea Nitrogen 13 mg/dl (7-17); Calcium 8.1 mg/dl (8.4-10.2); Carbon Dioxide 27 mmol/L (22-30); Chloride 104 mmol/L (98-107); Estimated Creatinine Clearance 34 ml/min; Glucose 88 mg/dl (70-99); Magnesium 1.7 mg/dl (1.6-2.3); Phosphorus 2.4 mg/dl (2.5-4.5); Potassium 3.3 mmol/L (3.5-5.1); Sodium 138 mmol/L (135-145); eGFR 49.24
--- NOTE | 2024-11-18 09:33 | CM ---
senior procurement manager reviewed patient's chart this morning and spoke with patient's daughter and caregiver, Jessica this am. Plan was to home with [facility], per daughter she would to follow patient's progress over then next few days to see how she progresses and
then make a decision. Patient will need PT/OT evaluations.
Plan; Await PT/OT evaluations on patient. Patient had been set up with home with [facility], patient has home oxygen in home.
--- NOTE | 2024-11-18 09:39 | PN.CDI ---
CDI
- -
CDI:
Physician Documentation Request
Admit Date: 11/15/24 17:44
Dear Doctor Jan,
Progress note state 'Acute on chronic respiratory failure with hypoxia Suspect due to aspiration following episode of vomiting superimposed on COPD'
Please clarify the status of the COPD
COPD with acute exacerbation
COPD without exacerbation
Other
Use of terms such as suspected, likely, concern for, or probable (associated with a specific diagnosis that is being evaluated, monitored, or treated as if it exists) are acceptable and can be coded in the inpatient setting, when documented at the
time of discharge.
Thank you,
Estela Rm RN, BSN
CDI Specialist
tiger text
Please use your independent medical judgment in providing your response.
[2024-11-18 11:08] VITALS: BP 130/52
[2024-11-18] MEDS: XANAX PO ×2 (13:26→17:08)
[2024-11-18] MEDS: STERILE WATER FOR INJECTION 10 ML IV (13:27)
[2024-11-18] MEDS: ROCEPHIN 1000 MG IV (13:27)
--- NOTE | 2024-11-18 13:43 | W.PN.HOSP.TC ---
Today's Communication/Plan
-
Assessment / Plan
Assessment / Plan
Gen-awake and alert, NAD
HEENT-NC, AT, anicteric, clear oral mm
Neck-supple
CV-reg, no M, +S1/S2
Lungs-clear B/L
Abd-soft, NT, ND
Musculoskeletal-no edema, no deformity
Skin-warm and dry
Neuro-grossly non-focal, confused
Psych-calm, cooperative
Ms. Escobedo is a 84-year-old female with a medical history of paroxysmal A-fib (on Eliquis), CAD, HFpEF, COPD (2 to 3 L O2 at baseline), CVA, subclavian steal syndrome, hypertension, CKD stage IIIb, ambulatory dysfunction, and C. difficile who
presented with shortness of breath following an episode of vomiting. She had a single episode of diarrhea prior to arrival and her urine appeared cloudy earlier in the week. She was requiring increased supplemental oxygen of up to 6 L and so was
brought to the emergency department for further evaluation. Chest x-ray showed stable left basilar scarring but unable to rule out superimposed pneumonia. Respiratory panel was negative for influenza and COVID-19. She was started on antibiotics
with ceftriaxone and metronidazole and admitted for further evaluation and management.
Acute on chronic respiratory failure with hypoxia:
-Suspect due to aspiration following episode of vomiting superimposed on COPD
-Resolved to baseline
-Requires 2 to 3 L O2 at baseline, was up to 6 L at time of admission, now back to 3 L
-Respiratory panel negative for COVID-19 and influenza
-Had significant leukocytosis of 16,000 at time of admission which has resolved
-Will continue antibiotics with ceftriaxone and metronidazole, blood cultures negative to date
-No further vomiting, evaluated by DIESEL TRUCK MECHANIC who recommended soft and bite-size diet
-Medically stable for discharge to home once arranged, patient's daughter is her machine stacker at home however also currently has norovirus infection
UTI:
-Urinalysis showing significant pyuria and bacteriuria
-Urine culture growing pansensitive E. coli, will continue ceftriaxone
Norovirus infection:
-Had an episode of diarrhea prior to admission and 2 episodes 11/17
-Stool studies positive for norovirus
-No intra-abdominal abnormalities on CT imaging
-Just 1 episode of soft stools per day
-Continue isolation and enhanced precautions
-Monitor electrolytes and replete as needed
Electrolyte abnormalities:
-Mild hypokalemia and hypophosphatemia
-Suspect due to GI losses from diarrhea
-Will replete and continue to monitor
CKD stage IIIb:
-Appears close to baseline renal function
-Monitor
CODE STATUS: DNR
Anticipated Discharge: 24 - 48 hours
Subjective/Interval History
-
Date of Service: November 18, 2024
Patient was seen and examined at bedside this morning. Resting comfortably. Awaiting safe dispo to home.
Objective Data
-
Labs:
Laboratory Results
11/18/24
07:34
WBC 6.1
Hgb 8.9 L
Hct 26.9 L
Plt Count 262
Sodium 138
Potassium 3.3 L
Chloride 104
Carbon Dioxide 27
BUN 13
Creatinine 1.1 H
Glucose 88
Calcium 8.1 L
Vital Signs:
Vital Signs
Temp Pulse Resp BP Pulse Ox
98.3 F 62 20 130/52 94
11/18/24 11:08 11/18/24 11:08 11/18/24 11:08 11/18/24 11:08 11/18/24 11:08
I&O
11/17/24 11/18/24 11/19/24
06:59 06:59 06:59
Intake Total 100 / 100 160 / 160
Balance 100 / 100 160 / 160
Review of Systems
-
Unable to obtain full review of systems at this time due to: Dementia
Physical Exam
-
General: No Apparent Distress
[2024-11-18 14:55] VITALS: BP 110/60
[2024-11-18] MEDS: NEUTRA-PHOS POWDER PACKET 250 MG PO (17:08)
[2024-11-18] MEDS: LIPITOR 40 MG PO (17:08)
[2024-11-18] MEDS: ZOLOFT 50 MG PO (17:10)
[2024-11-18] MEDS: KLOR-CON 20 MEQ PO (20:59)
[2024-11-18 23:30] VITALS: BP 126/43
[2024-11-19] MEDS: FLAGYL 500 MG 100 IV ×3 (05:16→21:03)
[2024-11-19 06:00] VITALS: BMI 21.1
[2024-11-19 07:30] VITALS: BP 92/43
[2024-11-19 08:07] LABS: % Basophils 0.6 % (0-2); % Eosinophils 3.3 % (0-6); % Immature Granulocytes 0.3 % (0-0.5); % Lymphocytes 29.1 % (20.5-51.1); % Neutrophils 56.7 % (42.2-75.2); Absolute Eosinophils 0.2 10^3/uL (0-0.7); Absolute Monocytes 0.7 10^3/uL (0.1-0.6); Hematocrit 25.6 % (37.0-47.0); Hemoglobin 8.7 g/dL (12.0-16.0); Mean Corpuscular Hgb 28.2 pg (27.0-31.0); Mean Corpuscular Volume 82.8 fL (81.0-99.0); Mean Platelet Volume 10.5 fL (7.4-10.4); Nucleated Red Blood Cells % 0 %; Platelet Count 279 10^3/uL (130-400); Red Blood Cell Count 3.09 10^6/uL (4.20-5.40); Red Cell Dist. Width 13.5 % (11.5-14.5)
[2024-11-19 09:05] LABS: Blood Urea Nitrogen 13 mg/dl (7-17); Carbon Dioxide 28 mmol/L (22-30); Chloride 106 mmol/L (98-107); Estimated Creatinine Clearance 31 ml/min; Glucose 84 mg/dl (70-99); Magnesium 1.6 mg/dl (1.6-2.3); Phosphorus 2.8 mg/dl (2.5-4.5); Potassium 3.4 mmol/L (3.5-5.1); Sodium 138 mmol/L (135-145); eGFR 44.36
[2024-11-19] MEDS: XANAX 0.5 MG PO ×3 (09:21→16:48)
[2024-11-19] MEDS: PROTONIX 40 MG PO (09:22)
[2024-11-19] MEDS: NAMENDA 10 MG PO ×2 (09:23→20:57)
[2024-11-19] MEDS: SINGULAIR 10 MG PO (09:23)
[2024-11-19] MEDS: ELIQUIS 2.5 MG PO ×2 (09:23→20:57)
[2024-11-19] MEDS: ARICEPT 10 MG PO (09:23)
[2024-11-19] MEDS: COLACE PO (09:24)
[2024-11-19] MEDS: KLOR-CON 20 MEQ PO (09:26)
[2024-11-19 09:42] VITALS: BP 170/64
[2024-11-19] MEDS: CARDIZEM 90 MG PO ×3 (09:43→20:59)
[2024-11-19] MEDS: ZESTRIL 10 MG PO (09:43)
[2024-11-19] MEDS: LASIX 40 MG PO (09:44)
[2024-11-19] MEDS: SYMBICORT 160/4.5 MCG INHALER INH (10:11)
[2024-11-19] MEDS: SPIRIVA RESPIMAT 2.5 MCG INH (10:11)
--- NOTE | 2024-11-19 10:14 | CM ---
Chart reviewed and PT/OT have been ordered, waiting on recommendations, per daughter she is only agreeable to [facility] for skilled placement, piano case and bench assembler will send a referral to [facility].
Plan; Waiting on PT/OT evaluations on patient.
[2024-11-19] MEDS: MAGNESIUM SULFATE 100 IV (10:17)
[2024-11-19 10:19] VITALS: BP 180/63
[2024-11-19] MEDS: KLOR-CON 40 MEQ PO (10:19)
[2024-11-19 10:20] VITALS: BP 180/63
[2024-11-19] MEDS: STERILE WATER FOR INJECTION 10 ML IV (13:46)
[2024-11-19] MEDS: ROCEPHIN 1000 MG IV (13:46)
[2024-11-19 15:20] VITALS: BP 124/51
--- NOTE | 2024-11-19 15:20 | W.PN.HOSP.TC ---
Today's Communication/Plan
-
Assessment / Plan
Assessment / Plan
Gen-awake and alert, NAD
HEENT-NC, AT, anicteric, clear oral mm
Neck-supple
CV-reg, no M, +S1/S2
Lungs-clear B/L
Abd-soft, NT, ND
Musculoskeletal-no edema, no deformity
Skin-warm and dry
Neuro-grossly non-focal, confused
Psych-calm, cooperative
Ms. Escobedo is a 84-year-old female with a medical history of paroxysmal A-fib (on Eliquis), CAD, HFpEF, COPD (2 to 3 L O2 at baseline), CVA, subclavian steal syndrome, hypertension, CKD stage IIIb, ambulatory dysfunction, and C. difficile who
presented with shortness of breath following an episode of vomiting. She had a single episode of diarrhea prior to arrival and her urine appeared cloudy earlier in the week. She was requiring increased supplemental oxygen of up to 6 L and so was
brought to the emergency department for further evaluation. Chest x-ray showed stable left basilar scarring but unable to rule out superimposed pneumonia. Respiratory panel was negative for influenza and COVID-19. She was started on antibiotics
with ceftriaxone and metronidazole and admitted for further evaluation and management.
Acute on chronic respiratory failure with hypoxia:
-Suspect due to aspiration following episode of vomiting superimposed on COPD
-Resolved to baseline
-Requires 2 to 3 L O2 at baseline, was up to 6 L at time of admission, now back to 3 L
-Respiratory panel negative for COVID-19 and influenza
-Had significant leukocytosis of 16,000 at time of admission which has resolved
-Will continue antibiotics with ceftriaxone and metronidazole, today is day 4/5 of antibiotics, blood cultures negative to date
-No further vomiting, evaluated by MIGRATION SPECIALIST who recommended soft and bite-size diet
-Medically stable for discharge once arranged, patient's daughter is her order expediter at home however also currently has norovirus infection, pending SNF placement
UTI:
-Urinalysis showing significant pyuria and bacteriuria
-Urine culture growing pansensitive E. coli, will continue ceftriaxone for 1 more day (last dose 11/20)
Norovirus infection:
-Had an episode of diarrhea prior to admission and 2 episodes 11/17
-Stool studies positive for norovirus
-No intra-abdominal abnormalities on CT imaging
-Diarrhea minimal at this point
-Continue isolation and enhanced precautions
-Monitor electrolytes and replete as needed
Electrolyte abnormalities:
-Mild hypokalemia and hypophosphatemia
-Suspect due to GI losses from diarrhea
-Will replete and continue to monitor
CKD stage IIIb:
-Appears close to baseline renal function
-Monitor
CODE STATUS: DNR
Anticipated Discharge: 24 - 48 hours
Subjective/Interval History
-
Date of Service: November 19, 2024
Patient was seen and examined at bedside's morning. Has had a few episodes of soft stools over the past 24 hours. Otherwise medically stable. Denies abdominal pain. Awaiting dispo arrangements
Objective Data
-
Labs:
Laboratory Results
11/19/24
07:23
WBC 7.0
Hgb 8.7 L
Hct 25.6 L
Plt Count 279
Sodium 138
Potassium 3.4 L
Chloride 106
Carbon Dioxide 28
BUN 13
Creatinine 1.2 H
Glucose 84
Calcium 8.0 L
Vital Signs:
Vital Signs
Temp Pulse Resp BP Pulse Ox
97.8 F 82 18 170/64 98
11/19/24 07:30 11/19/24 07:30 11/19/24 07:30 11/19/24 09:42 11/19/24 08:15
I&O
11/18/24 11/19/24 11/20/24
06:59 06:59 06:59
Intake Total 160 / 160 340 / 340
Balance 160 / 160 340 / 340
Review of Systems
-
Unable to obtain full review of systems at this time due to: Dementia
Physical Exam
-
General: No Apparent Distress
[2024-11-19] MEDS: ZOFRAN 4 MG IV (15:26)
[2024-11-19] MEDS: LIPITOR 40 MG PO (16:43)
[2024-11-19] MEDS: ZOLOFT 50 MG PO (16:48)
[2024-11-19] MEDS: SYMBICORT 160/4.5 MCG INHALER 2 PUFF INH (20:33)
[2024-11-19 23:30] VITALS: BP 146/55
[2024-11-20] MEDS: FLAGYL 500 MG 100 IV ×2 (05:25→13:40)
[2024-11-20 06:00] VITALS: BMI 21.8
[2024-11-20 07:47] VITALS: BP 150/53
[2024-11-20] MEDS: SPIRIVA RESPIMAT 2.5 MCG 2 PUFF INH (08:13)
[2024-11-20] MEDS: SYMBICORT 160/4.5 MCG INHALER 2 PUFF INH (08:14)
[2024-11-20] MEDS: CARDIZEM 90 MG PO ×2 (09:34→15:20)
[2024-11-20] MEDS: ZESTRIL 10 MG PO (09:35)
[2024-11-20] MEDS: ELIQUIS 2.5 MG PO (09:36)
[2024-11-20] MEDS: COLACE 100 MG PO (09:36)
[2024-11-20] MEDS: NAMENDA 10 MG PO (09:36)
[2024-11-20] MEDS: ARICEPT 10 MG PO (09:36)
[2024-11-20] MEDS: SINGULAIR 10 MG PO (09:36)
[2024-11-20] MEDS: PROTONIX 40 MG PO (09:36)
[2024-11-20] MEDS: XANAX 0.5 MG PO ×2 (09:36→12:07)
[2024-11-20] MEDS: LASIX 40 MG PO (09:37)
[2024-11-20 10:39] LABS: COVID-19 Antigen Negative (Negative)
--- NOTE | 2024-11-20 11:24 | CM ---
Patient has been accepted at [facility] today, COVID ordered. Daughter Jessica is aware of plan, ambulance transport to [facility] has been set up with a 4pm belt picker.
[facility]
Report [phone]
[2024-11-20] MEDS: ROCEPHIN 1000 MG IV (13:22)
[2024-11-20] MEDS: STERILE WATER FOR INJECTION 10 ML IV (13:22)
--- NOTE | 2024-11-20 15:17 | W.DCSUMMARY ---
Discharge Summary
Discharge Data
Date of Admission: 11/15/24
Date of Discharge: 11/20/24
-
Pending Results: No
Hospital Course
Ms. Escobedo is a 84-year-old female with a medical history of paroxysmal A-fib (on Eliquis), CAD, HFpEF, COPD (2 to 3 L O2 at baseline), CVA, subclavian steal syndrome, hypertension, CKD stage IIIb, ambulatory dysfunction, and C. difficile who
presented with shortness of breath following an episode of vomiting. She had a single episode of diarrhea prior to arrival and her urine appeared cloudy earlier in the week. She was requiring increased supplemental oxygen of up to 6 L and so was
brought to the emergency department for further evaluation. Chest x-ray showed stable left basilar scarring but unable to rule out superimposed pneumonia. Respiratory panel was negative for influenza and COVID-19. She was started on antibiotics
with ceftriaxone and metronidazole and admitted for further evaluation and management.
Her respiratory status quickly improved and she was able to be titrated back down to her baseline 3 L via nasal cannula. She completed a 5-day course of antibiotics and blood cultures remain negative. Her urine culture did grow pansensitive E.
coli which was also treated with antibiotics use for pneumonia. She had a few more episodes of diarrhea while inpatient and stool studies resulted positive for norovirus. Her diarrhea resolved prior to discharge. Her electrolytes were monitored
and repleted as needed considering her GI losses. Her home Eliquis was reduced to 2.5 mg p.o. twice daily based on her renal function. She was medically stable at time of hospital discharge to SNF.
Gen-awake and alert, NAD
HEENT-NC, AT, anicteric, clear oral mm
Neck-supple
CV-reg, no M, +S1/S2
Lungs-clear B/L
Abd-soft, NT, ND
Musculoskeletal-no edema, no deformity
Skin-warm and dry
Neuro-grossly non-focal, confused
Psych-calm, cooperative
More than 30 minutes spent in discharge including
Final examination of the patient
Summarizing hospital stay
Instructions for continuing care to all relevant caregivers
Preparation of discharge records, prescriptions, and referral forms
Total time spent (in minutes): 40
Discharge Plan
-
Patient Disposition: Longterm/SNF
Discharge Diagnosis/Procedures: Acute on chronic respiratory failure with hypoxia, UTI, norovirus infection
Diet: Chop all food
Activity: With assistance and As tolerated
Activity Restrictions/Additional Instructions:
Ms. Escobedo is a 84-year-old female with a medical history of paroxysmal A-fib (on Eliquis), CAD, HFpEF, COPD (2 to 3 L O2 at baseline), CVA, subclavian steal syndrome, hypertension, CKD stage IIIb, ambulatory dysfunction, and C. difficile who
presented with shortness of breath following an episode of vomiting. She had a single episode of diarrhea prior to arrival and her urine appeared cloudy earlier in the week. She was requiring increased supplemental oxygen of up to 6 L and so was
brought to the emergency department for further evaluation. Chest x-ray showed stable left basilar scarring but unable to rule out superimposed pneumonia. Respiratory panel was negative for influenza and COVID-19. She was started on antibiotics
with ceftriaxone and metronidazole and admitted for further evaluation and management.
Her respiratory status quickly improved and she was able to be titrated back down to her baseline 3 L via nasal cannula. She completed a 5-day course of antibiotics and blood cultures remain negative. Her urine culture did grow pansensitive E.
coli which was also treated with antibiotics use for pneumonia. She had a few more episodes of diarrhea while inpatient and stool studies resulted positive for norovirus. Her diarrhea resolved prior to discharge. Her electrolytes were monitored
and repleted as needed considering her GI losses. Her home Eliquis was reduced to 2.5 mg p.o. twice daily based on her renal function. She was medically stable at time of hospital discharge to SNF.
Referrals:
Tato Chung DO [Family Provider] -
Prescriptions:
Continued
sertraline 50 MG tablet
50 mg PO QPM
memantine 10 MG tablet
10 mg PO BID
donepezil 10 mg Tablet
10 mg PO DAILY
montelukast [Singulair] 10 mg Tablet
10 mg PO DAILY
furosemide 40 mg Tablet
40 mg PO DAILY
docusate sodium [Colace] 100 mg Capsule
100 mg PO DAILYPRN PRN (Reason: constipation)
atorvastatin 40 MG tablet
40 mg PO QPM
pantoprazole 40 MG tablet,delayed release (DR/EC)
40 mg PO DAILY
alprazolam 0.5 mg tablet
0.5 mg PO TID
albuterol sulfate [Ventolin HFA] 90 mcg/actuation Hfa Aerosol Inhaler
1 puff INHALATION R DAILYPRN PRN (Reason: sob)
lisinopril 10 mg Tablet
10 mg PO DAILY
diltiazem HCl 60 mg Tablet
60 mg PO TID
cholecalciferol (vitamin D3) 50 mcg (2,000 unit) Tablet
50 mcg PO DAILY
Incruse Ellipta 62.5 mcg/actuation Blister With Device
1 inh INHALATION R DAILY
Breztri Aerosphere 160-9-4.8 mcg/actuation Hfa Aerosol Inhaler
2 inh INHALATION R BID
Changed
Eliquis 5 mg tablet
2.5 mg PO BID Qty: 0 0RF
Discharge Orders:
Discharge Patient (As Directed); Ordered 11/20/24
Ordered By: Jose Montoya
Discharge Date and Time
Print Language: TURKMEN
[2024-11-20 15:47] VITALS: BP 126/49
== END 2024-11-20 17:16 | DRG 177 ==
LOC: 4 WEST ACU 17:44
PROVIDERS: Nurse Practitioner Family; Physician Assistant; ADMITTING PHYSICIAN Hospitalist; ATTENDING PHYSICIAN Internal Medicine; EMERGENCY PHYSICIAN Emergency Medicine; FAMILY PHYSICIAN Family Medicine
DX: J69.0 Pneumonitis due to inhalation of food and vomit (principal); J96.21 Acute and chronic respiratory failure with hypoxia; N39.0 Urinary tract infection, site not specified; A08.11 Acute gastroenteropathy due to Norwalk agent; I13.0 Hypertensive heart and chronic kidney disease with heart failure and stage 1 through stage 4 chronic kidney disease, or unspecified chronic kidney disease; I50.32 Chronic diastolic (congestive) heart failure; J44.0 Chronic obstructive pulmonary disease with (acute) lower respiratory infection; G45.8 Other transient cerebral ischemic attacks and related syndromes; F02.83 Dementia in other diseases classified elsewhere, unspecified severity, with mood disturbance; F02.84 Dementia in other diseases classified elsewhere, unspecified severity, with anxiety; B96.20 Unspecified Escherichia coli [E. coli] as the cause of diseases classified elsewhere; I48.0 Paroxysmal atrial fibrillation; Z79.01 Long term (current) use of anticoagulants; I25.10 Atherosclerotic heart disease of native coronary artery without angina pectoris; N18.32 Chronic kidney disease, stage 3b; Z86.73 Personal history of transient ischemic attack (TIA), and cerebral infarction without residual deficits; E87.6 Hypokalemia; E83.39 Other disorders of phosphorus metabolism; Z66 Do not resuscitate; F32.A Depression, unspecified; G30.9 Alzheimer's disease, unspecified; G51.0 Bell's palsy; K21.9 Gastro-esophageal reflux disease without esophagitis; M19.90 Unspecified osteoarthritis, unspecified site; Z95.5 Presence of coronary angioplasty implant and graft; Z87.891 Personal history of nicotine dependence; Z88.5 Allergy status to narcotic agent; Z88.0 Allergy status to penicillin; Z88.8 Allergy status to other drugs, medicaments and biological substances; E78.00 Pure hypercholesterolemia, unspecified; M10.9 Gout, unspecified; Z11.52 Encounter for screening for COVID-19; Z99.81 Dependence on supplemental oxygen
CPT/HCPCS: 51701; 71045; 74176; 80048; 80053; 81003; 81015; 82805; 83605; 83735; 84100; 85025; 85027; 87040; 87077; 87086; 87186; 87324; 87449; 87502; 87798; 87811; 92526; 92610; 94640; 96361; 96374; 96375; 97163; 97167; 99285